=== PATIENT | male | born 1975 | race Hispanic/Latino ===

== ENCOUNTER 2020-06-10 19:17 | Inpatient (IN) | payer OTHER, SELFPAY ==
[2020-06-10] MEDS ORDERED: SODIUM CHLORIDE 0.9% 1000 ML 1,000 ML IV ONE (22:25)
[2020-06-10] MEDS ORDERED: ONDANSETRON 4 MG/2 ML INJ IV ONE (22:25)
--- NOTE | 2020-06-10 22:36 | Emergency Department Report ---
ED Abdominal Pain HPI - General Chief Complaint: Abdominal Pain Stated Complaint: HYPOTENSION Time Seen by Provider: 06/10/20 22:12 Source: EMS Mode of arrival: Wheelchair Limitations: No Limitations - History of Present Illness Initial Comments: Patient is 45 years old male with no significant past medical history however he does not follow-up with any primary care physician. Patient presented to the ER complaining of right scrotal swelling. Patient stated that his symptoms started 6 months ago with hernia and he was able to reduce it but for the last few days he is unable to reduce the hernia. Patient stated that he started having vomiting since yesterday and is unable to keep anything down. Patient also reported chills but no fever. No diarrhea. Patient denied any chest pain or shortness of breath. 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 MD Complaint: abdominal pain - Related Data Allergies Allergy/AdvReac Type Severity Reaction Status Date / Time No Known Allergies Allergy Unverified 06/11/20 00:01 ED Review of Systems ROS: Stated complaint: HYPOTENSION Other details as noted in HPI Comment: All other systems reviewed and negative Constitutional: denies: chills, fever Respiratory: denies: cough, shortness of breath, SOB with exertion Cardiovascular: denies: chest pain, palpitations Gastrointestinal: abdominal pain, nausea, vomiting. 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 Absent: tenderness, meningismus, lymphadenopathy, thyromegaly - Respiratory Respiratory exam: Present: normal lung sounds bilaterally - Cardiovascular Cardiovascular Exam: Present: regular rate, normal rhythm, normal heart sounds - GI/Abdominal GI/Abdominal exam: Present: soft, hernia (Large right inguinal hernia extending to the scrotum.). Absent: distended, tenderness, guarding, rebound, rigid - Back Exam Back exam: Present: normal inspection. Absent: CVA tenderness (R), CVA tenderness (L) - Neurological Exam Neurological exam: Present: alert, oriented X3, CN II-XII intact - Psychiatric Psychiatric exam: Present: normal mood ED Course Vital Signs 06/10/20 06/10/20 06/10/20 20:06 22:06 22:08 Temperature 98.8 F Pulse Rate 95 H Respiratory Rate Blood Pressure 118/97 118/97 118/97 Blood Pressure [Left] O2 Sat by Pulse 93 93 Oximetry 06/10/20 06/10/20 06/10/20 22:09 22:12 22:14 Temperature Pulse Rate Respiratory Rate Blood Pressure 118/97 118/97 118/97 Blood Pressure [Left] O2 Sat by Pulse 91 93 90 Oximetry 06/10/20 06/10/20 06/10/20 22:16 22:18 22:20 Temperature Pulse Rate Respiratory Rate Blood Pressure 118/97 118/97 118/97 Blood Pressure [Left] O2 Sat by Pulse 94 95 94 Oximetry 06/10/20 06/10/20 06/10/20 22:21 22:22 22:24 Temperature Pulse Rate 116 H 113 H 116 H Respiratory 16 21 21 Rate Blood Pressure 117/100 117/100 117/100 Blood Pressure [Left] O2 Sat by Pulse 95 95 93 Oximetry 06/10/20 06/10/20 06/10/20 22:26 22:28 22:30 Temperature Pulse Rate 114 H 117 H 118 H Respiratory 18 16 21 Rate Blood Pressure 117/100 117/100 117/100 Blood Pressure [Left] O2 Sat by Pulse 95 94 93 Oximetry 06/10/20 06/10/20 06/10/20 22:32 22:34 22:36 Temperature Pulse Rate 117 H 115 H 113 H Respiratory 12 22 20 Rate Blood Pressure 117/100 117/100 117/100 Blood Pressure [Left] O2 Sat by Pulse 89 91 95 Oximetry 06/10/20 06/10/20 06/10/20 22:38 22:40 22:42 Temperature Pulse Rate 110 H 112 H 112 H Respiratory 21 18 21 Rate Blood Pressure 117/100 117/100 117/100 Blood Pressure [Left] O2 Sat by Pulse 90 86 90 Oximetry 06/10/20 06/10/20 06/10/20 22:44 22:46 22:48 Temperature Pulse Rate 113 H 113 H 113 H Respiratory 20 22 18 Rate Blood Pressure 117/100 117/100 117/100 Blood Pressure [Left] O2 Sat by Pulse 91 90 92 Oximetry 06/10/20 06/10/20 06/10/20 22:50 22:52 22:54 Temperature Pulse Rate 114 H 112 H 115 H Respiratory 22 23 22 Rate Blood Pressure 117/100 117/100 117/100 Blood Pressure [Left] O2 Sat by Pulse 92 92 91 Oximetry 06/10/20 06/10/20 06/10/20 22:56 22:58 22:59 Temperature Pulse Rate 117 H 116 H 117 H Respiratory 13 10 L 11 L Rate Blood Pressure 117/100 117/100 117/100 Blood Pressure [Left] O2 Sat by Pulse 89 93 92 Oximetry 06/11/20 06/11/20 06/11/20 00:00 00:02 00:03 Temperature Pulse Rate Respiratory Rate Blood Pressure 117/100 56/32 57/30 Blood Pressure [Left] O2 Sat by Pulse 83 L 95 93 Oximetry 06/11/20 06/11/20 06/11/20 00:04 00:05 00:06 Temperature Pulse Rate Respiratory Rate Blood Pressure 62/30 73/40 69/42 Blood Pressure [Left] O2 Sat by Pulse 96 95 96 Oximetry 06/11/20 06/11/20 06/11/20 00:07 00:08 00:09 Temperature Pulse Rate Respiratory Rate Blood Pressure 70/34 73/41 68/43 Blood Pressure [Left] O2 Sat by Pulse 96 100 96 Oximetry 06/11/20 06/11/20 06/11/20 00:10 00:12 00:14 Temperature Pulse Rate Respiratory Rate Blood Pressure 73/42 73/44 73/44 Blood Pressure [Left] O2 Sat by Pulse 96 96 98 Oximetry 06/11/20 06/11/20 06/11/20 00:16 00:17 00:18 Temperature Pulse Rate Respiratory Rate Blood Pressure 73/44 84/47 84/47 Blood Pressure [Left] O2 Sat by Pulse 97 98 97 Oximetry 06/11/20 06/11/20 06/11/20 00:19 00:20 00:22 Temperature Pulse Rate 104 H 103 H 100 H Respiratory 18 11 L Rate Blood Pressure 77/41 81/43 83/43 Blood Pressure [Left] O2 Sat by Pulse Oximetry 06/11/20 06/11/20 06/11/20 00:23 00:24 00:25 Temperature Pulse Rate 101 H 101 H 102 H Respiratory 18 19 22 Rate Blood Pressure 83/43 91/45 Blood Pressure 83/43 [Left] O2 Sat by Pulse 97 Oximetry 06/11/20 06/11/20 06/11/20 00:26 00:28 00:30 Temperature Pulse Rate 103 H 100 H 101 H Respiratory 19 16 19 Rate Blood Pressure 91/45 91/45 94/46 Blood Pressure [Left] O2 Sat by Pulse 92 99 Oximetry 06/11/20 06/11/20 06/11/20 00:32 00:33 00:34 Temperature Pulse Rate 101 H 102 H 103 H Respiratory 21 21 14 Rate Blood Pressure 94/46 92/48 92/48 Blood Pressure [Left] O2 Sat by Pulse 94 94 94 Oximetry 06/11/20 06/11/20 06/11/20 00:35 00:36 00:38 Temperature Pulse Rate 101 H 101 H 103 H Respiratory 15 19 14 Rate Blood Pressure 88/41 88/41 88/41 Blood Pressure [Left] O2 Sat by Pulse 99 Oximetry 06/11/20 06/11/20 06/11/20 00:40 00:42 00:44 Temperature Pulse Rate 103 H 104 H 105 H Respiratory 18 15 15 Rate Blood Pressure 92/43 92/43 92/43 Blood Pressure [Left] O2 Sat by Pulse Oximetry 06/11/20 06/11/20 06/11/20 00:45 00:46 00:48 Temperature Pulse Rate 125 H 105 H 104 H Respiratory 14 13 18 Rate Blood Pressure 88/45 88/45 88/45 Blood Pressure [Left] O2 Sat by Pulse 99 Oximetry 06/11/20 06/11/20 06/11/20 00:50 00:52 00:53 Temperature Pulse Rate 105 H 103 H 105 H Respiratory 16 17 14 Rate Blood Pressure 88/46 84/47 81/45 Blood Pressure [Left] O2 Sat by Pulse 98 96 95 Oximetry 06/11/20 06/11/20 06/11/20 00:54 00:55 00:56 Temperature Pulse Rate 103 H 103 H 103 H Respiratory 19 16 19 Rate Blood Pressure 90/38 89/41 89/38 Blood Pressure [Left] O2 Sat by Pulse 89 94 Oximetry 06/11/20 06/11/20 06/11/20 00:57 00:58 01:00 Temperature Pulse Rate 104 H 104 H 103 H Respiratory 18 18 17 Rate Blood Pressure 82/39 81/42 81/42 Blood Pressure [Left] O2 Sat by Pulse 100 88 98 Oximetry 06/11/20 06/11/20 06/11/20 01:02 01:04 01:05 Temperature Pulse Rate 101 H 103 H 103 H Respiratory 20 17 16 Rate Blood Pressure 93/45 93/45 97/50 Blood Pressure [Left] O2 Sat by Pulse 92 90 Oximetry 06/11/20 06/11/20 06/11/20 01:06 01:08 01:10 Temperature Pulse Rate 102 H 102 H 103 H Respiratory 19 14 15 Rate Blood Pressure 97/50 97/50 101/49 Blood Pressure [Left] O2 Sat by Pulse 85 94 Oximetry 06/11/20 06/11/20 06/11/20 01:12 01:14 01:15 Temperature Pulse Rate 102 H 105 H 103 H Respiratory 16 15 21 Rate Blood Pressure 101/49 101/49 101/48 Blood Pressure [Left] O2 Sat by Pulse 100 94 Oximetry 06/11/20 06/11/20 06/11/20 01:16 01:18 01:20 Temperature Pulse Rate 102 H 103 H 103 H Respiratory 21 19 15 Rate Blood Pressure 101/48 101/48 97/54 Blood Pressure [Left] O2 Sat by Pulse 94 94 94 Oximetry 06/11/20 06/11/20 06/11/20 01:22 01:24 01:25 Temperature Pulse Rate 103 H 103 H 104 H Respiratory 16 16 16 Rate Blood Pressure 97/54 97/54 107/55 Blood Pressure [Left] O2 Sat by Pulse 94 95 91 Oximetry 06/11/20 06/11/20 06/11/20 01:26 01:28 01:30 Temperature Pulse Rate 105 H 105 H 105 H Respiratory 12 15 15 Rate Blood Pressure 107/55 107/55 102/54 Blood Pressure [Left] O2 Sat by Pulse 94 95 100 Oximetry 06/11/20 06/11/20 06/11/20 03:30 03:31 03:32 Temperature Pulse Rate 118 H 120 H 121 H Respiratory 16 13 13 Rate Blood Pressure 79/52 86/62 86/62 Blood Pressure [Left] O2 Sat by Pulse 83 L 90 90 Oximetry 06/11/20 06/11/20 06/11/20 03:34 03:35 03:36 Temperature Pulse Rate 121 H 121 H 121 H Respiratory 15 11 L 11 L Rate Blood Pressure 86/62 85/48 85/48 Blood Pressure [Left] O2 Sat by Pulse 87 90 100 Oximetry 06/11/20 06/11/20 06/11/20 03:38 03:40 03:42 Temperature Pulse Rate 119 H 121 H 120 H Respiratory 10 L 13 15 Rate Blood Pressure 85/48 85/48 43/22 Blood Pressure [Left] O2 Sat by Pulse 97 99 92 Oximetry 06/11/20 06/11/20 06/11/20 03:44 03:45 03:46 Temperature Pulse Rate 119 H 117 H 118 H Respiratory 16 12 12 Rate Blood Pressure 43/22 71/37 71/37 Blood Pressure [Left] O2 Sat by Pulse 91 96 96 Oximetry 06/11/20 06/11/20 06/11/20 03:48 03:50 03:52 Temperature Pulse Rate 118 H 119 H 116 H Respiratory 15 12 12 Rate Blood Pressure 71/37 66/34 66/34 Blood Pressure [Left] O2 Sat by Pulse 85 94 84 Oximetry 06/11/20 06/11/20 06/11/20 03:54 03:55 03:56 Temperature Pulse Rate 116 H 117 H 117 H Respiratory 17 14 19 Rate Blood Pressure 66/34 83/38 83/38 Blood Pressure [Left] O2 Sat by Pulse 89 93 89 Oximetry 06/11/20 06/11/20 06/11/20 03:58 04:00 04:02 Temperature Pulse Rate 118 H 117 H 118 H Respiratory 13 17 19 Rate Blood Pressure 83/38 83/45 83/45 Blood Pressure [Left] O2 Sat by Pulse 100 100 Oximetry 06/11/20 06/11/20 06/11/20 04:04 04:05 04:06 Temperature Pulse Rate 120 H 119 H 119 H Respiratory 10 L 19 16 Rate Blood Pressure 83/45 82/47 82/47 Blood Pressure [Left] O2 Sat by Pulse 99 100 100 Oximetry 06/11/20 06/11/20 06/11/20 04:08 04:10 04:12 Temperature Pulse Rate 118 H 118 H 117 H Respiratory 15 13 13 Rate Blood Pressure 82/47 81/49 81/49 Blood Pressure [Left] O2 Sat by Pulse 100 100 100 Oximetry 06/11/20 06/11/20 06/11/20 04:14 04:15 04:16 Temperature Pulse Rate 119 H 118 H 118 H Respiratory 14 12 14 Rate Blood Pressure 81/49 92/53 92/53 Blood Pressure [Left] O2 Sat by Pulse 100 100 100 Oximetry 06/11/20 06/11/20 06/11/20 04:18 04:20 04:22 Temperature Pulse Rate 116 H 116 H 117 H Respiratory 15 17 23 Rate Blood Pressure 92/53 88/49 88/49 Blood Pressure [Left] O2 Sat by Pulse 100 100 100 Oximetry 06/11/20 06/11/20 06/11/20 04:24 04:25 04:26 Temperature Pulse Rate 114 H 117 H 118 H Respiratory 17 16 19 Rate Blood Pressure 88/49 90/51 90/51 Blood Pressure [Left] O2 Sat by Pulse 100 99 100 Oximetry 06/11/20 06/11/20 06/11/20 04:28 04:30 04:32 Temperature Pulse Rate 116 H 115 H 115 H Respiratory 17 15 15 Rate Blood Pressure 90/51 85/54 85/54 Blood Pressure 90/51 [Left] O2 Sat by Pulse 99 100 100 Oximetry 06/11/20 06/11/20 06/11/20 04:34 04:35 04:36 Temperature Pulse Rate 115 H 116 H 114 H Respiratory 16 18 16 Rate Blood Pressure 85/54 88/50 88/50 Blood Pressure [Left] O2 Sat by Pulse 100 100 100 Oximetry 06/11/20 06/11/20 06/11/20 04:38 04:40 04:42 Temperature Pulse Rate 116 H 117 H 119 H Respiratory 16 18 18 Rate Blood Pressure 88/50 91/56 91/56 Blood Pressure [Left] O2 Sat by Pulse 100 100 100 Oximetry 06/11/20 06/11/20 06/11/20 04:44 04:45 04:46 Temperature Pulse Rate 112 H 112 H 114 H Respiratory 18 16 15 Rate Blood Pressure 91/56 91/60 91/60 Blood Pressure [Left] O2 Sat by Pulse 100 100 100 Oximetry 06/11/20 06/11/20 06/11/20 04:47 04:48 04:50 Temperature Pulse Rate 111 H 112 H 113 H Respiratory 18 14 17 Rate Blood Pressure 91/60 101/57 Blood Pressure 91/60 [Left] O2 Sat by Pulse 100 100 100 Oximetry 06/11/20 06/11/20 06/11/20 04:55 05:00 05:05 Temperature Pulse Rate 114 H 115 H 120 H Respiratory 17 17 19 Rate Blood Pressure 97/55 97/59 105/55 Blood Pressure [Left] O2 Sat by Pulse 100 100 99 Oximetry 06/11/20 06/11/20 06/11/20 05:10 05:15 05:20 Temperature Pulse Rate 116 H 116 H 117 H Respiratory 16 16 17 Rate Blood Pressure 97/59 99/59 98/60 Blood Pressure [Left] O2 Sat by Pulse 100 100 100 Oximetry 06/11/20 06/11/20 06/11/20 05:25 05:30 05:35 Temperature Pulse Rate 122 H 116 H 117 H Respiratory 24 13 16 Rate Blood Pressure 101/60 100/59 98/56 Blood Pressure [Left] O2 Sat by Pulse 100 99 100 Oximetry 06/11/20 06/11/20 06/11/20 05:40 05:45 05:50 Temperature Pulse Rate 117 H 116 H 114 H Respiratory 17 13 18 Rate Blood Pressure 92/61 105/57 106/52 Blood Pressure [Left] O2 Sat by Pulse 100 100 100 Oximetry 06/11/20 06/11/20 06/11/20 05:55 06:00 06:06 Temperature Pulse Rate 115 H 121 H 117 H Respiratory 15 22 16 Rate Blood Pressure 97/59 89/60 92/51 Blood Pressure [Left] O2 Sat by Pulse 100 100 100 Oximetry 06/11/20 06/11/20 06/11/20 06:10 06:14 06:15 Temperature Pulse Rate 116 H 116 H 116 H Respiratory 17 18 19 Rate Blood Pressure 92/51 102/56 Blood Pressure 102/57 [Left] O2 Sat by Pulse 100 100 100 Oximetry 06/11/20 06/11/20 06/11/20 06:20 06:25 06:30 Temperature Pulse Rate 119 H 115 H 116 H Respiratory 18 15 14 Rate Blood Pressure 98/57 97/58 100/56 Blood Pressure [Left] O2 Sat by Pulse 99 100 100 Oximetry 06/11/20 06/11/20 06/11/20 06:35 06:40 06:45 Temperature Pulse Rate 116 H 116 H 116 H Respiratory 18 15 18 Rate Blood Pressure 99/56 101/58 103/61 Blood Pressure [Left] O2 Sat by Pulse 100 100 100 Oximetry 06/11/20 06/11/20 06/11/20 06:50 06:55 07:00 Temperature Pulse Rate 116 H 122 H 116 H Respiratory 18 22 17 Rate Blood Pressure 96/58 97/55 102/55 Blood Pressure [Left] O2 Sat by Pulse 100 100 100 Oximetry 06/11/20 06/11/20 06/11/20 07:05 07:10 07:15 Temperature Pulse Rate 116 H 115 H 117 H Respiratory 19 21 15 Rate Blood Pressure 102/64 95/59 93/60 Blood Pressure [Left] O2 Sat by Pulse 100 100 100 Oximetry 06/11/20 06/11/20 06/11/20 07:20 07:25 07:30 Temperature Pulse Rate 120 H 120 H 119 H Respiratory 22 17 20 Rate Blood Pressure 96/54 77/50 75/45 Blood Pressure [Left] O2 Sat by Pulse 100 99 99 Oximetry 06/11/20 06/11/20 06/11/20 07:35 07:40 07:45 Temperature Pulse Rate 121 H 115 H 115 H Respiratory 23 19 17 Rate Blood Pressure 83/35 86/48 95/56 Blood Pressure [Left] O2 Sat by Pulse 100 100 100 Oximetry 06/11/20 06/11/20 06/11/20 07:50 07:55 08:00 Temperature Pulse Rate 117 H 114 H 115 H Respiratory 18 17 17 Rate Blood Pressure 94/52 100/54 99/57 Blood Pressure [Left] O2 Sat by Pulse 100 100 100 Oximetry 06/11/20 06/11/20 06/11/20 08:05 08:10 08:15 Temperature Pulse Rate 114 H 111 H 110 H Respiratory 17 17 18 Rate Blood Pressure 96/53 99/54 102/55 Blood Pressure [Left] O2 Sat by Pulse 100 100 100 Oximetry 06/11/20 06/11/20 06/11/20 08:20 08:25 08:30 Temperature Pulse Rate 110 H 109 H 109 H Respiratory 19 18 20 Rate Blood Pressure 106/57 97/59 101/58 Blood Pressure [Left] O2 Sat by Pulse 100 100 100 Oximetry 06/11/20 06/11/20 06/11/20 08:35 08:40 08:45 Temperature Pulse Rate 115 H 115 H 112 H Respiratory 21 20 17 Rate Blood Pressure 94/57 91/48 71/37 Blood Pressure [Left] O2 Sat by Pulse 100 100 100 Oximetry 06/11/20 06/11/20 06/11/20 08:50 08:55 09:00 Temperature Pulse Rate 114 H 115 H 114 H Respiratory 18 21 19 Rate Blood Pressure 73/38 65/39 65/39 Blood Pressure [Left] O2 Sat by Pulse 98 97 97 Oximetry 06/11/20 06/11/20 06/11/20 09:05 09:10 09:15 Temperature Pulse Rate 106 H 110 H 112 H Respiratory 16 17 19 Rate Blood Pressure 89/53 101/62 104/58 Blood Pressure [Left] O2 Sat by Pulse 98 98 98 Oximetry 06/11/20 06/11/20 06/11/20 09:20 09:25 09:30 Temperature Pulse Rate 113 H 114 H 112 H Respiratory 21 23 21 Rate Blood Pressure 101/60 101/57 99/60 Blood Pressure [Left] O2 Sat by Pulse 97 99 99 Oximetry 06/11/20 06/11/20 06/11/20 09:35 09:40 09:45 Temperature Pulse Rate 114 H 113 H 113 H Respiratory 15 21 22 Rate Blood Pressure 96/57 102/60 103/58 Blood Pressure [Left] O2 Sat by Pulse 100 98 99 Oximetry 06/11/20 06/11/20 06/11/20 09:50 09:55 10:00 Temperature Pulse Rate 116 H 113 H 115 H Respiratory 21 22 21 Rate Blood Pressure 103/61 102/59 99/51 Blood Pressure [Left] O2 Sat by Pulse 98 100 98 Oximetry 06/11/20 06/11/20 06/11/20 10:05 10:10 10:15 Temperature Pulse Rate 113 H 110 H 111 H Respiratory 18 20 15 Rate Blood Pressure 103/55 102/64 101/64 Blood Pressure [Left] O2 Sat by Pulse 100 99 99 Oximetry 06/11/20 06/11/20 06/11/20 10:20 10:25 10:30 Temperature Pulse Rate 119 H 114 H 116 H Respiratory 22 20 18 Rate Blood Pressure 96/57 107/62 100/60 Blood Pressure [Left] O2 Sat by Pulse 98 97 97 Oximetry 06/11/20 06/11/20 06/11/20 10:35 10:40 10:45 Temperature Pulse Rate 114 H 115 H 116 H Respiratory 22 22 20 Rate Blood Pressure 106/60 105/59 104/61 Blood Pressure [Left] O2 Sat by Pulse 99 99 99 Oximetry 06/11/20 06/11/20 06/11/20 10:50 10:55 11:00 Temperature Pulse Rate 116 H 115 H 117 H Respiratory 21 19 21 Rate Blood Pressure 106/59 95/59 99/57 Blood Pressure [Left] O2 Sat by Pulse 100 100 100 Oximetry 06/11/20 06/11/20 06/11/20 11:05 11:10 11:15 Temperature Pulse Rate 116 H 118 H 116 H Respiratory 22 17 21 Rate Blood Pressure 102/62 97/59 102/54 Blood Pressure [Left] O2 Sat by Pulse 98 100 99 Oximetry 06/11/20 06/11/20 06/11/20 11:20 11:25 11:30 Temperature Pulse Rate 120 H 117 H 108 H Respiratory 20 20 22 Rate Blood Pressure 91/53 100/61 104/61 Blood Pressure [Left] O2 Sat by Pulse 100 100 100 Oximetry 06/11/20 06/11/20 06/11/20 11:35 11:40 11:45 Temperature Pulse Rate 117 H 117 H 116 H Respiratory 20 20 21 Rate Blood Pressure 98/61 96/57 100/61 Blood Pressure [Left] O2 Sat by Pulse 99 100 100 Oximetry 06/11/20 06/11/20 06/11/20 11:50 11:55 12:00 Temperature Pulse Rate 116 H 118 H 116 H Respiratory 19 23 22 Rate Blood Pressure 101/57 95/60 105/58 Blood Pressure [Left] O2 Sat by Pulse 99 100 100 Oximetry 06/11/20 06/11/20 06/11/20 12:05 12:10 12:15 Temperature Pulse Rate 117 H 117 H 117 H Respiratory 20 16 24 Rate Blood Pressure 102/58 109/59 105/58 Blood Pressure [Left] O2 Sat by Pulse 100 100 99 Oximetry 06/11/20 06/11/20 06/11/20 12:20 12:45 12:50 Temperature Pulse Rate 118 H 121 H 128 H Respiratory 23 29 H 25 H Rate Blood Pressure 101/58 91/49 89/45 Blood Pressure [Left] O2 Sat by Pulse 100 91 93 Oximetry 08/06/11/20 06/11/20 12:55 13:00 13:05 Temperature Pulse Rate 123 H 123 H 119 H Respiratory 21 28 H 26 H Rate Blood Pressure 72/40 93/56 96/55 Blood Pressure [Left] O2 Sat by Pulse 95 94 93 Oximetry 06/11/20 06/11/20 06/11/20 13:10 13:15 13:20 Temperature Pulse Rate 125 H 115 H 155 H Respiratory 23 19 22 Rate Blood Pressure 101/58 95/60 85/61 Blood Pressure [Left] O2 Sat by Pulse 94 95 95 Oximetry 06/11/20 06/11/20 06/11/20 13:25 13:30 13:35 Temperature Pulse Rate 121 H 178 H 117 H Respiratory 26 H 24 19 Rate Blood Pressure 85/61 89/56 86/59 Blood Pressure [Left] O2 Sat by Pulse 95 97 97 Oximetry 06/11/20 06/11/20 06/11/20 13:40 13:45 13:50 Temperature Pulse Rate 120 H 120 H 119 H Respiratory 25 H 26 H 22 Rate Blood Pressure 86/59 93/60 88/61 Blood Pressure [Left] O2 Sat by Pulse 98 97 98 Oximetry 06/11/20 06/11/20 06/11/20 13:55 14:00 14:05 Temperature Pulse Rate 120 H 120 H 121 H Respiratory 23 20 24 Rate Blood Pressure 94/61 95/66 98/62 Blood Pressure [Left] O2 Sat by Pulse 97 98 98 Oximetry 06/11/20 06/11/20 06/11/20 14:10 14:15 14:20 Temperature Pulse Rate 121 H 123 H 122 H Respiratory 20 22 20 Rate Blood Pressure 91/64 86/62 89/59 Blood Pressure [Left] O2 Sat by Pulse 98 98 98 Oximetry 06/11/20 06/11/20 06/11/20 14:25 14:30 14:35 Temperature Pulse Rate 120 H 123 H 122 H Respiratory 18 24 20 Rate Blood Pressure 99/63 100/63 106/63 Blood Pressure [Left] O2 Sat by Pulse 95 97 97 Oximetry 06/11/20 06/11/20 06/11/20 14:40 14:45 14:50 Temperature Pulse Rate 122 H 122 H 139 H Respiratory 22 26 H 20 Rate Blood Pressure 104/60 109/62 106/66 Blood Pressure [Left] O2 Sat by Pulse 98 97 97 Oximetry 06/11/20 06/11/20 06/11/20 14:55 15:00 15:05 Temperature Pulse Rate 123 H 123 H 123 H Respiratory 21 23 22 Rate Blood Pressure 112/64 110/62 108/62 Blood Pressure [Left] O2 Sat by Pulse 98 98 96 Oximetry 06/11/20 06/11/20 06/11/20 15:10 15:15 15:20 Temperature Pulse Rate 124 H 123 H 123 H Respiratory 24 24 26 H Rate Blood Pressure 110/62 108/60 108/66 Blood Pressure [Left] O2 Sat by Pulse 97 98 97 Oximetry 06/11/20 06/11/20 06/11/20 15:25 15:30 15:35 Temperature Pulse Rate 123 H 125 H 124 H Respiratory 21 21 24 Rate Blood Pressure 106/63 109/63 112/61 Blood Pressure [Left] O2 Sat by Pulse 97 98 98 Oximetry 06/11/20 06/11/20 06/11/20 15:40 15:45 15:50 Temperature Pulse Rate 124 H 123 H 123 H Respiratory 24 17 20 Rate Blood Pressure 111/59 102/59 110/64 Blood Pressure [Left] O2 Sat by Pulse 98 98 98 Oximetry 06/11/20 06/11/20 06/11/20 15:55 16:00 16:05 Temperature Pulse Rate 123 H 120 H 124 H Respiratory 17 15 19 Rate Blood Pressure 108/66 107/65 100/58 Blood Pressure [Left] O2 Sat by Pulse 98 Oximetry 06/11/20 06/11/20 06/11/20 16:10 16:15 16:20 Temperature Pulse Rate 122 H 119 H 123 H Respiratory 21 15 25 H Rate Blood Pressure 104/63 112/63 114/64 Blood Pressure [Left] O2 Sat by Pulse Oximetry 06/11/20 06/11/20 06/11/20 16:25 16:30 16:35 Temperature Pulse Rate 124 H 126 H 126 H Respiratory 22 17 22 Rate Blood Pressure 107/65 106/61 112/61 Blood Pressure [Left] O2 Sat by Pulse Oximetry 06/11/20 06/11/20 06/11/20 16:40 16:45 16:50 Temperature Pulse Rate 124 H 125 H 125 H Respiratory 16 28 H 25 H Rate Blood Pressure 108/59 111/64 107/59 Blood Pressure [Left] O2 Sat by Pulse Oximetry 06/11/20 06/11/20 06/11/20 16:55 17:00 18:20 Temperature Pulse Rate 124 H 121 H 121 H Respiratory 23 22 22 Rate Blood Pressure 115/60 113/60 118/69 Blood Pressure [Left] O2 Sat by Pulse Oximetry 06/11/20 06/11/20 06/11/20 18:30 18:40 18:50 Temperature Pulse Rate 128 H 116 H 124 H Respiratory 25 H 22 21 Rate Blood Pressure 114/65 114/62 92/65 Blood Pressure [Left] O2 Sat by Pulse Oximetry 06/11/20 06/11/20 06/11/20 19:00 19:10 19:20 Temperature Pulse Rate 127 H 130 H 128 H Respiratory 22 14 16 Rate Blood Pressure 98/62 102/56 103/51 Blood Pressure [Left] O2 Sat by Pulse Oximetry 06/11/20 06/11/20 06/11/20 19:30 19:40 19:50 Temperature Pulse Rate 128 H 117 H 118 H Respiratory 17 16 20 Rate Blood Pressure 94/43 97/59 105/67 Blood Pressure [Left] O2 Sat by Pulse 95 Oximetry 06/11/20 06/11/20 06/11/20 20:00 20:10 20:20 Temperature Pulse Rate 116 H 120 H 123 H Respiratory 16 22 19 Rate Blood Pressure 115/72 119/77 111/64 Blood Pressure [Left] O2 Sat by Pulse 95 87 97 Oximetry 06/11/20 06/11/20 06/11/20 20:30 20:40 21:00 Temperature 98.7 F Pulse Rate 121 H 120 H Respiratory 24 19 Rate Blood Pressure 111/64 102/64 Blood Pressure [Left] O2 Sat by Pulse 95 Oximetry - Reevaluation(s) Reevaluation #1: 06/11/20 01:31 Patient blood pressure started to improve after 4 L of normal saline. Patient current blood pressure is 107/58 with a map of 65. Patient stated that he is feeling much better. I instructed the nurse to put a José catheter for urine output monitor and to rule out obstruction. ED Medical Decision Making - Lab Data Result diagrams: 06/12/20 04:26 06/11/20 10:48 - Radiology Data Radiology results: report reviewed - Medical Decision Making Patient is 45 years old male with no significant past medical history however he does not follow-up with any primary care physician. Patient presented to the ER complaining of right scrotal swelling. Patient stated that his symptoms started 6 months ago with hernia and he was able to reduce it but for the last few days he is unable to reduce the hernia. Patient stated that he started having vomiting since yesterday and is unable to keep anything down. Patient also reported chills but no fever. No diarrhea. Patient denied any chest pain or shortness of breath. 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 Immediately started on normal saline. Patient blood pressure started dropping. Sepsis protocol immediately initiated. Patient started on Zosyn. Labs reviewed and showed a white blood cells of 21,000. Patient creatinine is 7.7 with a BUN of 58. I discussed the patient with ,, safety relief valve technician on-call he advised to continue fluids and will see the patient. CT abdomen and pelvis showed a large incarcerated right inguinal hernia. I discussed the patient with Dr. Pleitez, general surgeon on-call he advised to continue resuscitation the patient and he will plan surgery according. I discussed the patient with , he agreed to admit the patient to medical service for further manag ement. Critical Care Time: Yes Critical care time in (mins) excluding proc time.: 45 Critical care attestation.: If time is entered above; I have spent that time in minutes in the direct care of this critically ill patient, excluding procedure time. ED Disposition Clinical Impression: Sepsis, Acute renal failure, Incarcerated right inguinal hernia Disposition: OP ADMIT IP TO THIS HOSP Is pt being admited?: Yes Condition: Stable
[2020-06-10] MEDS: MORPHINE 4 MG/1 ML INJ IV ONE ×2 (22:57→23:47)
[2020-06-10 23:00] LABS: Hematocrit 44.5 % (35.5-45.6); Mean Corpuscular HGB Conc 34 % (32-34); Mean Corpuscular Volume 91 fl (84-94); Platelet Count 505 K/mm3 (140-440); Red Blood Count 4.91 M/mm3 (3.65-5.03); Red Cell Distribution Width 13.6 % (13.2-15.2)
[2020-06-10 23:08] LABS: INR 0.97 (0.87-1.13)
[2020-06-10 23:15] LABS: Alanine Aminotransferase 31 units/L (7-56); Albumin 4.9 g/dL (3.9-5); Blood Urea Nitrogen 58 mg/dL (9-20); Calcium 10.2 mg/dL (8.4-10.2); Hemolysis Index 53
[2020-06-10] MEDS ORDERED: PIPERACILLIN/TAZOBACTAM 3.375 3.375 GM/50 ML BAG IV ONE (23:17)
[2020-06-10 23:19] LABS: BUN/Creatinine Ratio 8; Bilirubin,Direct < 0.2 mg/dL (0-0.2)
[2020-06-11] MEDS ORDERED: SODIUM CHLORIDE 0.9% 1000 ML IV SOLN IV ONE (00:08)
--- NOTE | 2020-06-11 00:15 | Cat Scan Report ---
CT abdomen pelvis wo con INDICATION / CLINICAL INFORMATION: Pt complains of severe LOWER abdominal pain. TECHNIQUE: Axial CT imaging of abdomen and pelvis was obtained without contrast. Coronal and sagittal reformatte d imaging obtained and reviewed. All CT scans at this location are performed using CT dose reduction for ALARA by means of automated exposure control. COMPARISON: None available. FINDINGS: CT abdomen without contrast demonstrates grossly normal appearance of the liver, spleen, pancreas, ki dneys, and gallbladder. There is a fat-containing right adrenal gland mass measuring 2.4 cm consisten t with adenoma. 1.3 cm left adrenal gland mass also noted, most likely adenoma as well. 1.8 cm left r enal cyst. There is a moderate size hiatal hernia present. CT pelvis without contrast demonstrates a large right inguinal hernia. There multiple bowel loops wit hin the hernia including the distal small bowel and the cecum. The appendix is contained within the h ernia as well without evidence of appendicitis. A few of the small bowel loops within the hernia appe ar mildly inflamed. The cecum is distended with fluid and the small bowel proximal to the hernia is m ildly dilated with fluid. There is prominent gastric distention with fluid as well. The remainder the pelvis is unremarkable. No pelvic mass or free fluid identified. Mild diverticulosi s of the sigmoid colon is incidentally noted. Visualized lung bases are clear. Review of osseous structures does not demonstrate any acute significant skeletal abnormality. IMPRESSION: 1. Large right inguinal hernia containing cecum and several loops of distal small bowel. The small arcenio wel proximal to the hernia is mildly dilated and fluid-filled. Additionally the cecum, contained with in the hernia is moderately distended with fluid. Appearance is consistent with a mild small bowel ob struction as well as concern for cecal obstruction-incarceration. 2. Incidental finding of bilateral small adrenal gland adenomas. 3. Moderate sized hiatal hernia. Signer Name: Dee Dee Vaca MD Signed: 06/11/2020 12:10 AM Workstation Name: [id number]
--- NOTE | 2020-06-11 01:25 | Event Note ---
Date: 06/11/[address] Kumar. Reviewed images. Hernia opening is fairly large with no significant dilatation of proximal bowel. Unlikely that patient has strangulated bowel to cause the current condition. Pt needs to be resuscitated before surgery.
--- NOTE | 2020-06-11 01:36 | XRay Report ---
CHEST 1 VIEW INDICATION / CLINICAL INFORMATION: sepsis. COMPARISON: None available. FINDINGS: SUPPORT DEVICES: None. HEART / MEDIASTINUM: No significant abnormality. LUNGS / PLEURA: No significant pulmonary or pleural abnormality. No pneumothorax. ADDITIONAL FINDINGS: No significant additional findings. IMPRESSION: 1. No acute findings. Signer Name: Dee Dee Vaca MD Signed: 06/11/2020 1:32 AM Workstation Name: [id number]
[2020-06-11] MEDS ORDERED: SODIUM CHLORIDE 0.9% 1000 ML 1,000 ML IV ONE ×3 (01:38→07:38)
[2020-06-11] MEDS ORDERED: MORPHINE 2 MG/1 ML INJ IV PRN (02:08)
[2020-06-11] MEDS ORDERED: ACETAMINOPHEN 325 MG TAB PO PRN (02:08)
[2020-06-11] MEDS ORDERED: ONDANSETRON 4 MG/2 ML INJ IV PRN (02:08)
--- NOTE | 2020-06-11 02:20 | History and Physical Report ---
History of Present Illness Date of examination: 06/11/20 Date of admission: 06/11/2020 Chief complaint: Abdominal pain History of present illness: Patient is a 45-year-old male with no significant past medical history presenting to the emergency room today complaining of right inguinal swelling. Patient is indicates that his symptoms started about 6 months ago when he developed a hernia and was able to reduce it over the past few days he has been unable to reduce the hernia. He has been having some nausea and vomiting for the past 2 days. He denies any fever but has some chills, he denies any diarrhea, no chest pain or shortness of breath, no hematuria or dysuria. 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 Denies any sick contacts and no recent travel. He denies contact with anyone COVID-19. Work-up in the emergency room today including CT scan reveals incarcerated right inguinal hernia. General surgeon Dr. Pleitez has been consulted and the ER physician. Patient is placed on IV fluid and empiric IV antibiotics. 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) Social history: smoking (Current daily smoker), alcohol abuse Medications and Allergies Allergies Allergy/AdvReac Type Severity Reaction Status Date / Time No Known Allergies Allergy Unverified 06/11/20 00:01 Active Meds: Active Medications Sodium Chloride (Nacl 0.9% 1000 Ml) 1,000 mls @ 999 mls/hr IV BOLUS ONE Stop: 06/11/20 02:38 Sodium Chloride (Nacl 0.9% 1000 Ml) 1,000 mls @ 999 mls/hr IV BOLUS ONE Stop: 06/11/20 02:40 Review of Systems Constitutional: chills, no fever Ears, nose, mouth and throat: no nasal congestion, no sore throat Cardiovascular: no chest pain, no palpitations Respiratory: no cough, no shortness of breath Gastrointestinal: abdominal pain, nausea, vomiting, no diarrhea Genitourinary Male: no dysuria, no hematuria, no nocturia Musculoskeletal: no neck pain, no low back pain Integumentary: no rash, no pruritis Neurological: no headaches, no confusion Psychiatric: no anxiety, no depression Exam - Constitutional Vitals: Temp Pulse Resp BP Pulse Ox 98.8 F 105 H 15 102/54 100 06/10/20 20:06 06/11/20 01:30 06/11/20 01:30 06/11/20 01:30 06/11/20 01:30 General appearance: Present: no acute distress, well-nourished - EENT Eyes: Present: PERRL, EOM intact, scleral icterus ENT: hearing intact, clear oral mucosa, dentition normal - Neck Neck: Present: supple, normal ROM - Respiratory Respiratory effort: normal Respiratory: bilateral: CTA - Cardiovascular Rhythm: regular Heart Sounds: Present: S1 & S2. Absent: gallop, systolic murmur, diastolic murmur, rub - Extremities Extremities: no ischemia, pulses intact, pulses symmetrical, No edema, Full ROM Peripheral Pulses: within normal limits - Abdominal General gastrointestinal: Present: soft, non-tender, non-distended, normal bowel sounds, hernia (Huge non reducible right inguinal hernia, mildly tender) - Integumentary Integumentary: Present: clear, warm, dry - Musculoskeletal Musculoskeletal: strength equal bilaterally - Psychiatric Psychiatric: appropriate mood/affect, intact judgment & insight, memory intact, cooperative - Neurologic Neurologic: CNII-XII intact, no focal deficits, moves all extremities Results - Labs CBC & Chem 7: 06/10/20 22:39 06/10/20 22:39 Labs: Abnormal lab results 06/10/20 06/10/20 06/11/20 Range/Units 22:39 22:39 00:45 WBC 21.0 H (4.5-11.0) K/mm3 Plt Count 505 H (140-440) K/mm3 Chloride 80.1 L (98-107) mmol/L BUN 58 H (9-20) mg/dL Creatinine 7.7 H (0.8-1.3) mg/dL Glucose 147 H (75-100) mg/dL Lactic Acid 4.90 H* (0.7-2.0) mmol/L AST 50 H (5-40) units/L Total Protein 8.8 H (6.3-8.2) g/dL Assessment and Plan - Patient Problems (1) Incarcerated right inguinal hernia Current Visit: Yes Status: Acute Plan to address problem: Patient placed on analgesic medication. General surgeon Dr. Pleitez has been consulted. (2) Acute renal failure Current Visit: Yes Status: Acute Plan to address problem: We will continue IV fluid and monitor BUN and creatinine. Nephrology has also been consulted for further evaluation and recommendation. (3) Sepsis Current Visit: Yes Status: Acute Plan to address problem: Patient placed on IV fluid and empiric IV antibiotics. (4) DVT prophylaxis Current Visit: Yes Status: Acute Plan to address problem: Patient placed on sequential compression device. (5) Full code status Current Visit: Yes Status: Acute
[2020-06-11 02:27] LABS: Band Neutrophils # (Manual) 0.4 K/mm3; Basophils % (Manual) 0 % (0.0-1.8); Eosinophils % (Manual) 0 % (0.0-4.3); Target Cells Rare; Total Cells Counted 100
[2020-06-11 02:28] LABS: Platelet Estimate Consistent w Auto
[2020-06-11] MEDS ORDERED: SODIUM CHLORIDE 0.9% 250ML 250 ML ONE (04:08)
[2020-06-11] MEDS ORDERED: SODIUM CHLORIDE 0.9% 250ML 250 ML IV ONE (04:14)
[2020-06-11] MEDS ORDERED: SODIUM CHLORIDE 0.9% 1000 ML 1,000 ML ONE ×3 (04:24→12:31)
[2020-06-11] MEDS: NORepinephrine/NS 4 MG-250 ML 4 MG/250 ML BAG IV SCH ×2 (04:37→20:48)
[2020-06-11] MEDS ORDERED: PIPERACIL/TAZOBACTA 4.5/NS 100 4.5 GM/100 ML VIAL IV SCH (06:00)
[2020-06-11] MEDS ORDERED: PIPERACIL-TAZO 2.25 GM/50 ML 2.25 GM/50 ML BAG IV ONE ×2 (06:10→16:52)
[2020-06-11] MEDS: PIPERACIL-TAZO 2.25 GM/50 ML 2.25 GM/50 ML BAG IV SCH ×2 (06:12→16:53)
--- NOTE | 2020-06-11 07:01 | Consultation ---
History of Present Illness Consult date: 06/11/20 Reason for consult: hernia Requesting physician: MEGHANA MAGANA Chief complaint: nausea, vomiting, diarrhea - History of present illness History of present illness: 45yo M presents with 1 week history of nausea, vomiting, diarrhea and a feeling that "I was going to ". EMS reports that patient was hypotensive on arrival. Patient became hypotensive again in the emergency department. Work-up revealed elevated white count, acute renal failure, inguinoscrotal hernia that possibly may be incarcerated. General surgery was consulted. Patient reports that hernias been there for at least 6 months. He has been able to push it back up until a few days ago. He was concerned and nausea, vomiting, diarrhea were related to his hernia therefore he came to the emergency de partment. Also he had the feeling that he was going to . Denies ever having any abdominal pain or scrotal pain. 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) Social history: smoking (Current daily smoker), alcohol abuse Medications and Allergies Allergies Allergy/AdvReac Type Severity Reaction Status Date / Time No Known Allergies Allergy Unverified 06/11/20 00:01 Active Meds: Active Medications Acetaminophen (Tylenol) 650 mg PO Q4H PRN PRN Reason: Pain MILD(1-3)/Fever >100.5/HERRERA Sodium Chloride (Nacl 0.9% 1000 Ml) 1,000 mls @ 125 mls/hr IV DIRECT ALICE Piperacillin Sod/Tazobactam Sod (Zosyn/Ns 2.25 Gm/50ml) 2.25 gm in 50 mls @ 100 mls/hr IV Q8HR ALICE Last Admin: 06/11/20 06:12 Dose: 100 mls/hr Documented by: Norepinephrine (Levophed Drip 4 Mg/Ns 250 Ml) 4 mg in 250 mls @ 7.5 mls/hr IV TITR ALICE; Protocol Last Titration: 06/11/20 06:06 Dose: 11 mcg/min, 41.25 mls/hr Documented by: Morphine Sulfate (Morphine) 2 mg IV Q4H PRN PRN Reason: Pain, Moderate (4-6) Ondansetron HCl (Zofran) 4 mg IV Q8H PRN PRN Reason: Nausea And Vomiting Sodium Chloride (Sodium Chloride Flush Syringe 10 Ml) 10 ml IV BID ALICE Sodium Chloride (Sodium Chloride Flush Syringe 10 Ml) 10 ml IV PRN PRN PRN Reason: LINE FLUSH Review of Systems - Constitutional weakness, lethargy, no fever, no chills, no chronic pain - Cardiovascular no chest pain, no shortness of breath - Respiratory no cough - Gastrointestinal nausea, vomiting, diarrhea, dyspepsia/bloating, no abdominal pain, no hematemesis, no coffee ground emesis, no BRBPR, no melena, no hematochezia - Muskuloskeletal no low back pain - Integumentary no rash, no sores, no wounds Exam Vital Signs Temp Pulse BP 98.8 F 95 H 118/97 06/10/20 20:06 06/10/20 20:06 06/10/20 20:06 - General physical appearance Positive: well developed, well nourished, no distress, no pain, other (Appears lethargic. Able to answer questions.) - Eyes Positive: normal occular movement. Negative: icteric - Respiratory Positive: normal expansion, normal respiratory effort - Cardiovascular Rhythm: regular (tachycardic) - Abdomen Abdomen: Present: soft, bowel sounds hypoactive, other (protuberant abdomen). Absent: tender, masses, guarding, rigid, surgical scars Hernia: reducible, scrotal (Skin is thickened but there is no erythema. Able to reduce hernia without causing any pain or tenderness.) - Genitourinary Male Genitourinary: right inguinal hernia - Integumentary no rash, no growths, no abnormal pigmentation - Psychiatric Psychiatric: intact judgment & insight, cooperative Results - Labs 06/10/20 22:39 06/10/20 22:39 Abnormal lab results 06/10/20 06/10/20 06/11/20 Range/Units 22:39 22:39 00:45 WBC 21.0 H (4.5-11.0) K/mm3 Plt Count 505 H (140-440) K/mm3 Seg Neuts % (Manual) 84.0 H (40.0-70.0) % Lymphocytes % (Manual) 6.0 L (13.4-35.0) % Monocytes % (Manual) 8.0 H (0.0-7.3) % Seg Neutrophils # Man 17.6 H (1.8-7.7) K/mm3 Monocytes # (Manual) 1.7 H (0.0-0.8) K/mm3 Chloride 80.1 L (98-107) mmol/L BUN 58 H (9-20) mg/dL Creatinine 7.7 H (0.8-1.3) mg/dL Glucose 147 H (75-100) mg/dL Lactic Acid 4.90 H* (0.7-2.0) mmol/L AST 50 H (5-40) units/L Total Protein 8.8 H (6.3-8.2) g/dL Diabetes panel 06/10/20 Range/Units 22:39 Sodium 137 (137-145) mmol/L Potassium 4.4 (3.6-5.0) mmol/L Chloride 80.1 L (98-107) mmol/L Carbon Dioxide 25 (22-30) mmol/L BUN 58 H (9-20) mg/dL Creatinine 7.7 H (0.8-1.3) mg/dL Glucose 147 H (75-100) mg/dL Calcium 10.2 (8.4-10.2) mg/dL AST 50 H (5-40) units/L ALT 31 (7-56) units/L Alkaline Phosphatase 115 (35-129) units/L Total Protein 8.8 H (6.3-8.2) g/dL Albumin 4.9 (3.9-5) g/dL Calcium panel 06/10/20 Range/Units 22:39 Calcium 10.2 (8.4-10.2) mg/dL Albumin 4.9 (3.9-5) g/dL Pituitary panel 06/10/20 Range/Units 22:39 Sodium 137 (137-145) mmol/L Potassium 4.4 (3.6-5.0) mmol/L Chloride 80.1 L (98-107) mmol/L Carbon Dioxide 25 (22-30) mmol/L BUN 58 H (9-20) mg/dL Creatinine 7.7 H (0.8-1.3) mg/dL Glucose 147 H (75-100) mg/dL Calcium 10.2 (8.4-10.2) mg/dL Adrenal panel 06/10/20 Range/Units 22:39 Sodium 137 (137-145) mmol/L Potassium 4.4 (3.6-5.0) mmol/L Chloride 80.1 L (98-107) mmol/L Carbon Dioxide 25 (22-30) mmol/L BUN 58 H (9-20) mg/dL Creatinine 7.7 H (0.8-1.3) mg/dL Glucose 147 H (75-100) mg/dL Calcium 10.2 (8.4-10.2) mg/dL Total Bilirubin 0.50 (0.1-1.2) mg/dL AST 50 H (5-40) units/L ALT 31 (7-56) units/L Alkaline Phosphatase 115 (35-129) units/L Total Protein 8.8 H (6.3-8.2) g/dL Albumin 4.9 (3.9-5) g/dL - Imaging CT scan - abdomen: report reviewed, image reviewed CT scan - pelvis: report reviewed, image reviewed Assessment and Plan - Patient Problems (1) Right inguinal hernia Current Visit: Yes Status: Acute Plan to address problem: Pt with chronic right inguinal hernia. Overall, patient did not present with any abdominal pain or groin pain. He was concerned that his nausea, vomiting, diarrhea, overall weak feeling were related to the hernia and that is why he presented. He had absolutely no tenderness during the reduction of the hernia. There were no skin changes. It seems unlikely that his overall septic picture is related to some complication of the right inguinal hernia. I was able to reduce the hernia with steady pressure and he tolerated it very well. I would expect him to be exquisitely tender if the bowel were ischemic or necrotic. He seems to be responding to the resuscitation as his lactate has normalized. I would continue with aggressive resuscitation. Once he is stabilized, we will plan for operative repair of his inguinal hernia. I will start him on a liquid diet later today or tomorrow if his nausea and vomiting have resolved now that the hernia was reduced. Please note, the hernia opening is quite large. After I reduced the hernia it easily comes out again. This is to be expected and not a concern. As long as it is able to be reduced, we should be fine to wait on surgery until he is more stable. Will follow along. Please call with questions. time=40min
[2020-06-11 08:39] LABS: Amorphous Crystals,Urine 1+; Bacteria,Urine 1+ /HPF (Negative); Bilirubin,Urine NEG (Negative); Blood,Urine LG (Negative); Color,Urine Yellow (Yellow); Mucus,Urine 1+ /HPF; Sperm,Urine FEW /HPF (NP); Urobilinogen,Urine < 2.0 mg/dL (<2.0)
[2020-06-11 08:45] LABS: Protein,Urine >500 mg/dL (Negative)
--- NOTE | 2020-06-11 10:41 | Consultation ---
History of Present Illness - Reason for Consult acute renal failure - History of Present Illness Mr. Atkinson is a 45 years old male with no significant past medical history however he does not follow-up with any primary care physician who presented to the ED complaining of right scrotal swelling. 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 He reports intractable nausea/vomiting w/ poor po intake. Hernia was reducible until recently. Since admission, vitals were notable for SBP as low as 60-70s. Labs notable for BUN 58, SCr 7.7 and lactic acid 4.9. 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) Social history: smoking (Current daily smoker), alcohol abuse Medications and Allergies Allergies Allergy/AdvReac Type Severity Reaction Status Date / Time No Known Allergies Allergy Unverified 06/11/20 00:01 Active Meds: Active Medications Acetaminophen (Tylenol) 650 mg PO Q4H PRN PRN Reason: Pain MILD(1-3)/Fever >100.5/HERRERA Sodium Chloride (Nacl 0.9% 1000 Ml) 1,000 mls @ 125 mls/hr IV DIRECT ALICE Piperacillin Sod/Tazobactam Sod (Zosyn/Ns 2.25 Gm/50ml) 2.25 gm in 50 mls @ 100 mls/hr IV Q8HR ALICE Last Admin: 06/11/20 06:12 Dose: 100 mls/hr Documented by: Norepinephrine (Levophed Drip 4 Mg/Ns 250 Ml) 4 mg in 250 mls @ 7.5 mls/hr IV TITR ALICE; Protocol Last Titration: 06/11/20 06:06 Dose: 11 mcg/min, 41.25 mls/hr Documented by: Morphine Sulfate (Morphine) 2 mg IV Q4H PRN PRN Reason: Pain, Moderate (4-6) Ondansetron HCl (Zofran) 4 mg IV Q8H PRN PRN Reason: Nausea And Vomiting Sodium Chloride (Sodium Chloride Flush Syringe 10 Ml) 10 ml IV BID ALICE Sodium Chloride (Sodium Chloride Flush Syringe 10 Ml) 10 ml IV PRN PRN PRN Reason: LINE FLUSH Review of Systems All systems: negative Exam - Vital Signs Vital signs: Vital Signs Temp Pulse BP 98.8 F 95 H 118/97 06/10/20 20:06 06/10/20 20:06 06/10/20 20:06 - General Appearance General appearance: well-developed, well-nourished EENT: ATNC Respiratory: Clear to Ascultation Heart: regular, S1S2 Gastrointestinal: Absent: tenderness, distended, guarding Integumentary: no rash, warm and dry Neurologic: other (sleeping, arousable to tactile stimuli, responds to questions) Musculoskeletal: Present: other (no edema) Psychiatric: cooperative Results - Lab Results 06/10/20 22:39 06/11/20 10:48 Most recent lab results Calcium 10.2 mg/dL (8.4-10.2) 06/10/20 22:39 Assessment and Plan Impression: * Nonoliguric JULIANA secondary to prerenal azotemia vs ATN * Sepsis * Intractable nausea/vomiting * Inguinal hernia -reducible * Altered mental status - secondary to multifactorial etiologies, sepsis vs uremia * Lactic acidosis - resolved w/ resuscitation Plan: * No acute indication for renal replacement at this time - lytes are stable, patient w/ good UOP - boo bag w/ clear yellow urine * Continue IVF for fluid resuscitation * Monitor lytes and volume status closely * Pressors prn to maintain MAP>65 * Strict I/O * Avoid potential nephrotoxins * Abx per primary team. Await blood cultures * Case discussed with Dr. Pleitez * AM labs ordered
--- NOTE | 2020-06-11 11:30 | Event Note ---
Date: 06/11/20 Planned reevaluation- Patient reports that he is feeling much better than when he came in. He continues to deny any abdominal pain or scrotal pain. His nausea has resolved. He has been given water and tolerated it without any problems. Vital signs are about the same. He is more awake now and oriented x3. He had no hesitation in the orientation answers Breathing is nonlabored. Abdomen is protuberant and soft. Nontender. Right scrotum is swollen again but reducible. Nontender during the reduction. Patient continues to have a reducible hernia and benign scrotum and abdomen. Overall, we generally do not see ischemic/necrotic bowel with a benign abdomen and hernia along with a normal lactate. Discussed the case with Dr. Adams. The renal failure could definitely cause his lethargy and some of his other symptoms. Difficult to explain the septic picture. We discussed the possibility of a diagnostic laparoscopy just to make sure the bowel is okay. However, in light of 2 consistent exams of a benign abdomen and nontender, reducible right inguinal scrotal hernia, it seems extremely unlikely that he has compromised intestine in that area. We will continue with the aggressive resuscitation and serial exams. Would ideally like to schedule a hernia repair when he is more stable. We will continue to follow. Please call with any questions.
[2020-06-11 11:32] LABS: Calcium 7.1 mg/dL (8.4-10.2)
[2020-06-11] MEDS ORDERED: NORepinephrine/NS 4 MG-250 ML 4 MG/250 ML BAG IV ONE ×2 (12:32→19:29)
--- NOTE | 2020-06-11 13:14 | Progress Note ---
Assessment and Plan Assessment and plan: Sepsis. Patient meets criteria given the leukocytosis, tachycardia and diagnosis of UTI. Continue IV antibiotics and follow-up blood and urine cultures. Continue Zosyn and consider ID consultation. Reducible inguinal hernia. Continue per surgery. Nonoliguric JULIANA. Etiology secondary to prerenal azotemia/ATN. Follow serial BMP. Intractable nausea and vomiting. Continue supportive care with IV fluid hydration and antiemetics. Toxic metabolic encephalopathy. Continue to treat underlying causes of sepsis/uremia. Lactic acidosis. Etiology likely secondary to dehydration. The high probability of a clinically significant, sudden or life threatening deterioration of the [immunologic and hemodynamic] system(s) required my full and direct attention, intervention and personal management. The aggregate critical care time was [32] minutes. This time is in addition to time spent performing reported procedures but includes the following: [x] Data Review and interpretation [x] Patient assessment and monitoring of vital signs [x] Documentation [x] Medication orders and management History Interval history: No new issues overnight Hospitalist Physical - Constitutional Vitals: Temp Pulse Resp BP Pulse Ox 98.8 F 118 H 23 101/58 100 06/10/20 20:06 06/11/20 12:20 06/11/20 12:20 06/11/20 12:20 06/11/20 12:20 General appearance: Present: no acute distress, well-nourished - EENT Eyes: Present: PERRL, EOM intact ENT: hearing intact, clear oral mucosa, dentition normal - Neck Neck: Present: supple, normal ROM - Respiratory Respiratory effort: normal Respiratory: bilateral: CTA - Cardiovascular Rhythm: regular Heart Sounds: Present: S1 & S2. Absent: gallop, rub - Extremities Extremities: no ischemia, No edema, Full ROM - Abdominal General gastrointestinal: soft, non-tender, non-distended, normal bowel sounds - Integumentary Integumentary: Present: clear, warm, dry - Neurologic Neurologic: CNII-XII intact, moves all extremities Results - Labs CBC & Chem 7: 06/10/20 22:39 06/11/20 10:48 Labs: Laboratory Last Values WBC 21.0 K/mm3 (4.5-11.0) H 06/10/20 22:39 RBC 4.91 M/mm3 (3.65-5.03) 06/10/20 22:39 Hgb 15.0 gm/dl (11.8-15.2) 06/10/20 22:39 Hct 44.5 % (35.5-45.6) 06/10/20 22:39 MCV 91 fl (84-94) 06/10/20 22:39 MCH 31 pg (28-32) 06/10/20 22:39 MCHC 34 % (32-34) 06/10/20 22:39 RDW 13.6 % (13.2-15.2) 06/10/20 22:39 Plt Count 505 K/mm3 (140-440) H 06/10/20 22:39 Add Manual Diff Complete 06/10/20 22:39 Total Counted 100 06/10/20 22:39 Seg Neuts % (Manual) 84.0 % (40.0-70.0) H 06/10/20 22:39 Band Neutrophils % 2.0 % 06/10/20 22:39 Lymphocytes % (Manual) 6.0 % (13.4-35.0) L 06/10/20 22:39 Reactive Lymphs % (Man) 0 % 06/10/20 22:39 Monocytes % (Manual) 8.0 % (0.0-7.3) H 06/10/20 22:39 Eosinophils % (Manual) 0 % (0.0-4.3) 06/10/20 22:39 Basophils % (Manual) 0 % (0.0-1.8) 06/10/20 22:39 Metamyelocytes % 0 % 06/10/20 22:39 Myelocytes % 0 % 06/10/20 22:39 Promyelocytes % 0 % 06/10/20 22:39 Blast Cells % 0 % 06/10/20 22:39 Nucleated RBC % Not Reportable 06/10/20 22:39 Seg Neutrophils # Man 17.6 K/mm3 (1.8-7.7) H 06/10/20 22:39 Band Neutrophils # 0.4 K/mm3 06/10/20 22:39 Lymphocytes # (Manual) 1.3 K/mm3 (1.2-5.4) 06/10/20 22:39 Abs React Lymphs (Man) 0.0 K/mm3 06/10/20 22:39 Monocytes # (Manual) 1.7 K/mm3 (0.0-0.8) H 06/10/20 22:39 Eosinophils # (Manual) 0.0 K/mm3 (0.0-0.4) 06/10/20 22:39 Basophils # (Manual) 0.0 K/mm3 (0.0-0.1) 06/10/20 22:39 Metamyelocytes # 0.0 K/mm3 06/10/20 22:39 Myelocytes # 0.0 K/mm3 06/10/20 22:39 Promyelocytes # 0.0 K/mm3 06/10/20 22:39 Blast Cells # 0.0 K/mm3 06/10/20 22:39 WBC Morphology Not Reportable 06/10/20 22:39 Hypersegmented Neuts Not Reportable 06/10/20 22:39 Hyposegmented Neuts Not Reportable 06/10/20 22:39 Hypogranular Neuts Not Reportable 06/10/20 22:39 Smudge Cells Not Reportable 06/10/20 22:39 Toxic Granulation Not Reportable 06/10/20 22:39 Toxic Vacuolation Not Reportable 06/10/20 22:39 Dohle Bodies Not Reportable 06/10/20 22:39 Pelger-Huet Anomaly Not Reportable 06/10/20 22:39 Lynette Rods Not Reportable 06/10/20 22:39 Platelet Estimate Consistent w auto 06/10/20 22:39 Clumped Platelets Not Reportable 06/10/20 22:39 Plt Clumps, EDTA Not Reportable 06/10/20 22:39 Large Platelets Not Reportable 06/10/20 22:39 Giant Platelets Not Reportable 06/10/20 22:39 Platelet Satelliting Not Reportable 06/10/20 22:39 Plt Morphology Comment Not Reportable 06/10/20 22:39 RBC Morphology Not Reportable 06/10/20 22:39 Dimorphic RBCs Not Reportable 06/10/20 22:39 Polychromasia Not Reportable 06/10/20 22:39 Hypochromasia Not Reportable 06/10/20 22:39 Poikilocytosis Not Reportable 06/10/20 22:39 Anisocytosis Not Reportable 06/10/20 22:39 Microcytosis Not Reportable 06/10/20 22:39 Macrocytosis Not Reportable 06/10/20 22:39 Spherocytes Not Reportable 06/10/20 22:39 Pappenheimer Bodies Not Reportable 06/10/20 22:39 Sickle Cells Not Reportable 06/10/20 22:39 Target Cells Rare 06/10/20 22:39 Tear Drop Cells Not Reportable 06/10/20 22:39 Ovalocytes Not Reportable 06/10/20 22:39 Helmet Cells Not Reportable 06/10/20 22:39 Jung-[place] Bodies Not Reportable 06/10/20 22:39 [place] Rings Not Reportable 06/10/20 22:39 [place] Cells Not Reportable 06/10/20 22:39 Bite Cells Not Reportable 06/10/20 22:39 Crenated Cell Not Reportable 06/10/20 22:39 Elliptocytes Not Reportable 06/10/20 22:39 Acanthocytes (Spur) Not Reportable 06/10/20 22:39 Rouleaux Not Reportable 06/10/20 22:39 Hemoglobin C Crystals Not Reportable 06/10/20 22:39 Schistocytes Not Reportable 06/10/20 22:39 Malaria parasites Not Reportable 06/10/20 22:39 Kee Bodies Not Reportable 06/10/20 22:39 Hem Pathologist Commnt No 06/10/20 22:39 PT 13.1 Sec. (12.2-14.9) 06/10/20 22:39 INR 0.97 (0.87-1.13) 06/10/20 22:39 Sodium 139 mmol/L (137-145) 06/11/20 10:48 Potassium 4.2 mmol/L (3.6-5.0) 06/11/20 10:48 Chloride 97.6 mmol/L (98-107) L 06/11/20 10:48 Carbon Dioxide 19 mmol/L (22-30) L 06/11/20 10:48 Anion Gap 27 mmol/L 06/11/20 10:48 BUN 69 mg/dL (9-20) H 06/11/20 10:48 Creatinine 7.3 mg/dL (0.8-1.3) H 06/11/20 10:48 Estimated GFR 8 ml/min 06/11/20 10:48 BUN/Creatinine Ratio 9 % 06/11/20 10:48 Glucose 148 mg/dL (75-100) H 06/11/20 10:48 Lactic Acid 1.20 mmol/L (0.7-2.0) 06/11/20 05:40 Calcium 7.1 mg/dL (8.4-10.2) L D 06/11/20 10:48 Total Bilirubin 0.50 mg/dL (0.1-1.2) 06/10/20 22:39 Direct Bilirubin < 0.2 mg/dL (0-0.2) 06/10/20 22:39 Indirect Bilirubin 0.3 mg/dL 06/10/20 22:39 AST 50 units/L (5-40) H 06/10/20 22:39 ALT 31 units/L (7-56) 06/10/20 22:39 Alkaline Phosphatase 115 units/L (35-129) 06/10/20 22:39 Total Protein 8.8 g/dL (6.3-8.2) H 06/10/20 22:39 Albumin 4.9 g/dL (3.9-5) 06/10/20 22:39 Albumin/Globulin Ratio 1.3 % 06/10/20 22:39 Amylase 127 units/L (27-131) 06/10/20 22:39 Lipase 24 units/L (13-60) 06/10/20 22:39 Urine Color Yellow (Yellow) 06/10/20 Unknown Urine Turbidity Cloudy (Clear) 06/10/20 Unknown Urine pH 5.0 (5.0-7.0) 06/10/20 Unknown Ur Specific [place] 1.013 (1.003-1.030) 06/10/20 Unknown Urine Protein >500 mg/dL (Negative) 06/10/20 Unknown Urine Glucose (UA) 150 mg/dL (Negative) 06/10/20 Unknown Urine Ketones Neg mg/dL (Negative) 06/10/20 Unknown Urine Blood Lg (Negative) 06/10/20 Unknown Urine Nitrite Neg (Negative) 06/10/20 Unknown Urine Bilirubin Neg (Negative) 06/10/20 Unknown Urine Urobilinogen < 2.0 mg/dL (<2.0) 06/10/20 Unknown Ur Leukocyte Esterase Neg (Negative) 06/10/20 Unknown Urine WBC (Auto) 19.0 /HPF (0.0-6.0) H 06/10/20 Unknown Urine RBC (Auto) 6.0 /HPF (0.0-6.0) 06/10/20 Unknown U Epithel Cells (Auto) 1.0 /HPF (0-13.0) 06/10/20 Unknown Urine Bacteria (Auto) 1+ /HPF (Negative) 06/10/20 Unknown Amorphous Crystals 1+ 06/10/20 Unknown Urine Mucus 1+ /HPF 06/10/20 Unknown Urine Sperm Few /HPF (HOT ROLLER) 06/10/20 Unknown Microbiology: Microbiology 06/11/20 00:35 Peripheral/Venous Blood Culture - Preliminary Culture in Progress 06/11/20 00:45 Peripheral/Venous Blood Culture - Preliminary Culture in Progress José/IV: IV Catheter Type [Right INT / Saline Lock Antecubital] Active Medications - Current Medications Current Medications: Generic Name Dose Route Start Last Admin Trade Name Freq PRN Reason Stop Dose Admin Acetaminophen 650 mg 06/11/20 02:08 Tylenol PO Q4H PRN Pain MILD(1-3)/Fever >100.5/HERRERA Sodium Chloride 1,000 mls @ 125 mls/hr 06/11/20 02:15 Nacl 0.9% 1000 Ml IV DIRECT ALICE Piperacillin Sod/Tazobactam Sod 2.25 gm in 50 mls @ 100 mls/hr 06/11/20 06:00 06/11/20 06:12 Zosyn/Ns 2.25 Gm/50ml IV 100 mls/hr Q8HR ALICE Administration Norepinephrine 4 mg in 250 mls @ 7.5 mls/hr 06/11/20 05:00 06/11/20 06:06 Levophed Drip 4 Mg/Ns 250 Ml IV 11 mcg/min TITR ALICE 41.25 mls/hr Titration Protocol 2 MCG/MIN Morphine Sulfate 2 mg 06/11/20 02:08 Morphine IV Q4H PRN Pain, Moderate (4-6) Ondansetron HCl 4 mg 06/11/20 02:08 Zofran IV Q8H PRN Nausea And Vomiting Sodium Chloride 10 ml 06/11/20 10:00 Sodium Chloride Flush Syringe 10 Ml IV BID ALICE Sodium Chloride 10 ml 06/11/20 02:08 Sodium Chloride Flush Syringe 10 Ml IV PRN PRN LINE FLUSH
[2020-06-11] MEDS ORDERED: cefTRIAXone/NS 1 GM/50 ML 1 GM/50 ML BAG IV ONE (16:49)
[2020-06-11] MEDS: cefTRIAXone/NS 1 GM/50 ML 1 GM/50 ML BAG IV SCH (16:50)
[2020-06-11] MEDS: SODIUM CHLORIDE 0.9% 1000 ML 1,000 ML IV SCH (21:24)
[2020-06-12] MEDS: NORepinephrine/NS 4 MG-250 ML 4 MG/250 ML BAG IV SCH (02:23)
[2020-06-12] MEDS: PIPERACIL-TAZO 2.25 GM/50 ML 2.25 GM/50 ML BAG IV SCH ×4 (02:41→21:42)
[2020-06-12 06:26] LABS: Hematocrit 32.7 % (35.5-45.6); Hemoglobin 11.3 gm/dl (11.8-15.2); Mean Corpuscular HGB Conc 34 % (32-34); Mean Corpuscular Volume 93 fl (84-94); Platelet Count 295 K/mm3 (140-440); Red Blood Count 3.53 M/mm3 (3.65-5.03); Red Cell Distribution Width 14.2 % (13.2-15.2)
[2020-06-12 06:37] LABS: INR 1.13 (0.87-1.13)
[2020-06-12 06:46] LABS: Calcium 7.9 mg/dL (8.4-10.2)
[2020-06-12 07:38] LABS: Band Neutrophils # (Manual) 0.5 K/mm3; Basophils % (Manual) 0 % (0.0-1.8); Eosinophils % (Manual) 0 % (0.0-4.3); Total Cells Counted 100
[2020-06-12 07:39] LABS: Anisocytosis 1+; Platelet Estimate Consistent w Auto
[2020-06-12] MEDS: SODIUM CHLORIDE 0.9% 1000 ML 1,000 ML IV SCH (10:39)
--- NOTE | 2020-06-12 10:45 | Progress Note ---
Assessment and Plan Assessment and plan: Sepsis. Patient meets criteria given the leukocytosis, tachycardia and diagnosis of UTI. Continue IV antibiotics and follow-up blood and urine cultures. Continue Zosyn and consider ID consultation. Reducible inguinal hernia. Continue per surgery. Nonoliguric JULIANA. Etiology secondary to prerenal azotemia/ATN. Follow serial BMP. Intractable nausea and vomiting. Continue supportive care with IV fluid hydration and antiemetics. Toxic metabolic encephalopathy. Continue to treat underlying causes of sepsis/uremia. Lactic acidosis. Etiology likely secondary to dehydration. 06/12/2020. Creatinine has improved 7.7--> 7.3--> 5.4. Continue IV fluid hydration and monitor BMP closely. Nephrology following. Surgery feels that it is extremely unlikely to have compromised/incarcerated inguinal hernia based on exam. Hernia repair per surgery recommendations. Hypotension has improved with IV fluid hydration. History Interval history: No new issues overnight Hospitalist Physical - Constitutional Vitals: Temp Pulse Resp BP Pulse Ox 99.2 F 124 H 21 108/59 92 06/12/20 08:00 06/12/20 07:20 06/12/20 07:20 06/12/20 07:20 06/12/20 07:20 General appearance: Present: no acute distress, well-nourished - EENT Eyes: Present: PERRL, EOM intact ENT: hearing intact, clear oral mucosa, dentition normal - Neck Neck: Present: supple, normal ROM - Respiratory Respiratory effort: normal Respiratory: bilateral: CTA - Cardiovascular Rhythm: regular Heart Sounds: Present: S1 & S2. Absent: gallop, rub - Extremities Extremities: no ischemia, No edema, Full ROM - Abdominal General gastrointestinal: soft, non-tender, non-distended, normal bowel sounds - Integumentary Integumentary: Present: clear, warm, dry - Neurologic Neurologic: CNII-XII intact, moves all extremities Results - Labs CBC & Chem 7: 06/12/20 04:26 06/12/20 04:26 Labs: Laboratory Last Values WBC 11.9 K/mm3 (4.5-11.0) H 06/12/20 04:26 RBC 3.53 M/mm3 (3.65-5.03) L 06/12/20 04:26 Hgb 11.3 gm/dl (11.8-15.2) L D 06/12/20 04:26 Hct 32.7 % (35.5-45.6) L D 06/12/20 04:26 MCV 93 fl (84-94) 06/12/20 04:26 MCH 32 pg (28-32) 06/12/20 04:26 MCHC 34 % (32-34) 06/12/20 04:26 RDW 14.2 % (13.2-15.2) 06/12/20 04:26 Plt Count 295 K/mm3 (140-440) 06/12/20 04:26 Add Manual Diff Complete 06/12/20 04:26 Total Counted 100 06/12/20 04:26 Seg Neuts % (Manual) 83.0 % (40.0-70.0) H 06/12/20 04:26 Band Neutrophils % 4.0 % 06/12/20 04:26 Lymphocytes % (Manual) 10.0 % (13.4-35.0) L 06/12/20 04:26 Reactive Lymphs % (Man) 0 % 06/12/20 04:26 Monocytes % (Manual) 3.0 % (0.0-7.3) 06/12/20 04:26 Eosinophils % (Manual) 0 % (0.0-4.3) 06/12/20 04:26 Basophils % (Manual) 0 % (0.0-1.8) 06/12/20 04:26 Metamyelocytes % 0 % 06/12/20 04:26 Myelocytes % 0 % 06/12/20 04:26 Promyelocytes % 0 % 06/12/20 04:26 Blast Cells % 0 % 06/12/20 04:26 Nucleated RBC % Not Reportable 06/12/20 04:26 Seg Neutrophils # Man 9.9 K/mm3 (1.8-7.7) H 06/12/20 04:26 Band Neutrophils # 0.5 K/mm3 06/12/20 04:26 Lymphocytes # (Manual) 1.2 K/mm3 (1.2-5.4) 06/12/20 04:26 Abs React Lymphs (Man) 0.0 K/mm3 06/12/20 04:26 Monocytes # (Manual) 0.4 K/mm3 (0.0-0.8) 06/12/20 04:26 Eosinophils # (Manual) 0.0 K/mm3 (0.0-0.4) 06/12/20 04:26 Basophils # (Manual) 0.0 K/mm3 (0.0-0.1) 06/12/20 04:26 Metamyelocytes # 0.0 K/mm3 06/12/20 04:26 Myelocytes # 0.0 K/mm3 06/12/20 04:26 Promyelocytes # 0.0 K/mm3 06/12/20 04:26 Blast Cells # 0.0 K/mm3 06/12/20 04:26 WBC Morphology Not Reportable 06/12/20 04:26 Hypersegmented Neuts Not Reportable 06/12/20 04:26 Hyposegmented Neuts Not Reportable 06/12/20 04:26 Hypogranular Neuts Not Reportable 06/12/20 04:26 Smudge Cells Not Reportable 06/12/20 04:26 Toxic Granulation Not Reportable 06/12/20 04:26 Toxic Vacuolation Not Reportable 06/12/20 04:26 Dohle Bodies Not Reportable 06/12/20 04:26 Pelger-Huet Anomaly Not Reportable 06/12/20 04:26 Lynette Rods Not Reportable 06/12/20 04:26 Platelet Estimate Consistent w auto 06/12/20 04:26 Clumped Platelets Not Reportable 06/12/20 04:26 Plt Clumps, EDTA Not Reportable 06/12/20 04:26 Large Platelets Not Reportable 06/12/20 04:26 Giant Platelets Not Reportable 06/12/20 04:26 Platelet Satelliting Not Reportable 06/12/20 04:26 Plt Morphology Comment Not Reportable 06/12/20 04:26 RBC Morphology Not Reportable 06/12/20 04:26 Dimorphic RBCs Not Reportable 06/12/20 04:26 Polychromasia Not Reportable 06/12/20 04:26 Hypochromasia Not Reportable 06/12/20 04:26 Poikilocytosis Not Reportable 06/12/20 04:26 Anisocytosis 1+ 06/12/20 04:26 Microcytosis Not Reportable 06/12/20 04:26 Macrocytosis Not Reportable 06/12/20 04:26 Spherocytes Not Reportable 06/12/20 04:26 Pappenheimer Bodies Not Reportable 06/12/20 04:26 Sickle Cells Not Reportable 06/12/20 04:26 Target Cells Not Reportable 06/12/20 04:26 Tear Drop Cells Not Reportable 06/12/20 04:26 Ovalocytes Not Reportable 06/12/20 04:26 Helmet Cells Not Reportable 06/12/20 04:26 Jung-[place] Bodies Not Reportable 06/12/20 04:26 [place] Rings Not Reportable 06/12/20 04:26 [place] Cells Not Reportable 06/12/20 04:26 Bite Cells Not Reportable 06/12/20 04:26 Crenated Cell Not Reportable 06/12/20 04:26 Elliptocytes Not Reportable 06/12/20 04:26 Acanthocytes (Spur) Not Reportable 06/12/20 04:26 Rouleaux Not Reportable 06/12/20 04:26 Hemoglobin C Crystals Not Reportable 06/12/20 04:26 Schistocytes Not Reportable 06/12/20 04:26 Malaria parasites Not Reportable 06/12/20 04:26 Kee Bodies Not Reportable 06/12/20 04:26 Hem Pathologist Commnt No 06/12/20 04:26 PT 14.7 Sec. (12.2-14.9) 06/12/20 04:26 INR 1.13 (0.87-1.13) 06/12/20 04:26 Sodium 141 mmol/L (137-145) 06/12/20 04:26 Potassium 3.6 mmol/L (3.6-5.0) 06/12/20 04:26 Chloride 104.5 mmol/L (98-107) 06/12/20 04:26 Carbon Dioxide 18 mmol/L (22-30) L 06/12/20 04:26 Anion Gap 22 mmol/L 06/12/20 04:26 BUN 75 mg/dL (9-20) H 06/12/20 04:26 Creatinine 5.4 mg/dL (0.8-1.3) H 06/12/20 04:26 Estimated GFR 11 ml/min 06/12/20 04:26 BUN/Creatinine Ratio 14 % 06/12/20 04:26 Glucose 154 mg/dL (75-100) H 06/12/20 04:26 Lactic Acid 1.20 mmol/L (0.7-2.0) 06/11/20 05:40 Calcium 7.9 mg/dL (8.4-10.2) L 06/12/20 04:26 Total Bilirubin 0.50 mg/dL (0.1-1.2) 06/10/20 22:39 Direct Bilirubin < 0.2 mg/dL (0-0.2) 06/10/20 22:39 Indirect Bilirubin 0.3 mg/dL 06/10/20 22:39 AST 50 units/L (5-40) H 06/10/20 22:39 ALT 31 units/L (7-56) 06/10/20 22:39 Alkaline Phosphatase 115 units/L (35-129) 06/10/20 22:39 Total Protein 8.8 g/dL (6.3-8.2) H 06/10/20 22:39 Albumin 4.9 g/dL (3.9-5) 06/10/20 22:39 Albumin/Globulin Ratio 1.3 % 06/10/20 22:39 Amylase 127 units/L (27-131) 06/10/20 22:39 Lipase 24 units/L (13-60) 06/10/20 22:39 Urine Color Yellow (Yellow) 06/10/20 Unknown Urine Turbidity Cloudy (Clear) 06/10/20 Unknown Urine pH 5.0 (5.0-7.0) 06/10/20 Unknown Ur Specific [place] 1.013 (1.003-1.030) 06/10/20 Unknown Urine Protein >500 mg/dL (Negative) 06/10/20 Unknown Urine Glucose (UA) 150 mg/dL (Negative) 06/10/20 Unknown Urine Ketones Neg mg/dL (Negative) 06/10/20 Unknown Urine Blood Lg (Negative) 06/10/20 Unknown Urine Nitrite Neg (Negative) 06/10/20 Unknown Urine Bilirubin Neg (Negative) 06/10/20 Unknown Urine Urobilinogen < 2.0 mg/dL (<2.0) 06/10/20 Unknown Ur Leukocyte Esterase Neg (Negative) 06/10/20 Unknown Urine WBC (Auto) 19.0 /HPF (0.0-6.0) H 06/10/20 Unknown Urine RBC (Auto) 6.0 /HPF (0.0-6.0) 06/10/20 Unknown U Epithel Cells (Auto) 1.0 /HPF (0-13.0) 06/10/20 Unknown Urine Bacteria (Auto) 1+ /HPF (Negative) 06/10/20 Unknown Amorphous Crystals 1+ 06/10/20 Unknown Urine Mucus 1+ /HPF 06/10/20 Unknown Urine Sperm Few /HPF (PAPER COATER) 06/10/20 Unknown Coronavirus (PCR) Negative (Negative) 06/11/20 08:47 Microbiology: Microbiology 06/10/20 Unknown Urine,Clean Catch Urine Culture - Preliminary NO GROWTH AFTER 24 HOURS 06/11/20 00:35 Peripheral/Venous Blood Culture - Preliminary NO GROWTH AFTER 24 HOURS 06/11/20 00:45 Peripheral/Venous Blood Culture - Preliminary NO GROWTH AFTER 24 HOURS José/IV: Voiding Method Indwelling Catheter IV Catheter Type [Left Peripheral IV Antecubital] IV Catheter Type [Right Peripheral IV Antecubital] Active Medications - Current Medications Current Medications: Generic Name Dose Route Start Last Admin Trade Name Freq PRN Reason Stop Dose Admin Acetaminophen 650 mg 06/11/20 02:08 Tylenol PO Q4H PRN Pain MILD(1-3)/Fever >100.5/HERRERA Sodium Chloride 1,000 mls @ 125 mls/hr 06/11/20 02:15 06/11/20 21:24 Nacl 0.9% 1000 Ml IV 125 mls/hr DIRECT ALICE Administration Piperacillin Sod/Tazobactam Sod 2.25 gm in 50 mls @ 100 mls/hr 06/11/20 06:00 06/12/20 02:41 Zosyn/Ns 2.25 Gm/50ml IV 100 mls/hr Q8HR ALICE Administration Norepinephrine 4 mg in 250 mls @ 7.5 mls/hr 06/11/20 05:00 06/12/20 06:06 Levophed Drip 4 Mg/Ns 250 Ml IV 0 mcg/min TITR ALICE 0 mls/hr Titration Protocol 2 MCG/MIN Ceftriaxone Sodium 1 gm in 50 mls @ 100 mls/hr 06/11/20 14:00 06/11/20 16:50 Rocephin/Ns 1 Gm/50 Ml IV 100 mls/hr Q24H ALICE Administration Protocol Morphine Sulfate 2 mg 06/11/20 02:08 Morphine IV Q4H PRN Pain, Moderate (4-6) Ondansetron HCl 4 mg 06/11/20 02:08 Zofran IV Q8H PRN Nausea And Vomiting Sodium Chloride 10 ml 06/11/20 10:00 06/11/20 16:47 Sodium Chloride Flush Syringe 10 Ml IV 10 ml BID ALICE Administration Sodium Chloride 10 ml 06/11/20 02:08 Sodium Chloride Flush Syringe 10 Ml IV PRN PRN LINE FLUSH
--- NOTE | 2020-06-12 12:08 | Progress Note ---
Assessment and Plan Impression: * Nonoliguric JULIANA secondary to prerenal azotemia vs ATN * Sepsis * Intractable nausea/vomiting * Inguinal/scrotal hernia, large * Altered mental status - secondary to multifactorial etiologies, sepsis vs uremia vs ?alcohol withdrawal * Lactic acidosis - resolved w/ resuscitation * Tachycardia Plan: * No acute indication for renal replacement at this time - lytes are stable, patient w/ good UOP * Continue IVF for fluid resuscitation * Recommend DT prophylaxis/CIWA protocol * Monitor lytes and volume status closely * Pressors prn to maintain MAP>65 * Strict I/O * Avoid potential nephrotoxins * Abx per primary team * AM labs ordered Subjective Date of service: 06/12/20 Interval history: No acute events overnight. Patient is currently off Levophed. Transfer to floor pending. Per RN, patient reported that he consumes liquor in additon to 3 beers daily. Objective - Vital Signs Vital signs: Vital Signs - 12hr 06/12/20 06/12/20 06/12/20 00:10 00:20 00:30 Temperature Pulse Rate 130 H 120 H 134 H Respiratory 22 18 16 Rate Blood Pressure 116/67 116/67 116/67 O2 Sat by Pulse 95 95 95 Oximetry 06/12/20 06/12/20 06/12/20 00:40 00:50 01:00 Temperature Pulse Rate 123 H 125 H 125 H Respiratory 19 18 19 Rate Blood Pressure 116/67 116/67 117/71 O2 Sat by Pulse 97 97 97 Oximetry 06/12/20 06/12/20 06/12/20 01:10 01:20 01:30 Temperature Pulse Rate 127 H 129 H 123 H Respiratory 19 19 18 Rate Blood Pressure 117/71 117/71 117/71 O2 Sat by Pulse 92 93 92 Oximetry 06/12/20 06/12/20 06/12/20 01:40 01:50 02:00 Temperature Pulse Rate 121 H 117 H 126 H Respiratory 19 22 19 Rate Blood Pressure 117/71 117/71 108/64 O2 Sat by Pulse 92 88 93 Oximetry 06/12/20 06/12/20 06/12/20 02:10 02:20 02:30 Temperature Pulse Rate 124 H 128 H 125 H Respiratory 20 20 17 Rate Blood Pressure 108/64 108/64 108/64 O2 Sat by Pulse 94 93 93 Oximetry 06/12/20 06/12/20 06/12/20 02:40 02:50 03:00 Temperature Pulse Rate 124 H 124 H 126 H Respiratory 20 26 H 21 Rate Blood Pressure 108/64 108/64 113/68 O2 Sat by Pulse 92 92 Oximetry 06/12/20 06/12/20 06/12/20 03:10 03:20 03:28 Temperature 100.7 F H Pulse Rate 122 H 121 H Respiratory 19 19 Rate Blood Pressure 113/68 113/68 O2 Sat by Pulse 92 92 Oximetry 06/12/20 06/12/20 06/12/20 03:30 03:40 03:50 Temperature Pulse Rate 127 H 123 H 131 H Respiratory 22 16 17 Rate Blood Pressure 113/68 113/68 113/68 O2 Sat by Pulse 94 94 95 Oximetry 06/12/20 06/12/20 06/12/20 04:00 04:10 04:20 Temperature Pulse Rate 131 H 126 H 127 H Respiratory 20 16 24 Rate Blood Pressure 114/71 114/71 114/71 O2 Sat by Pulse 94 92 92 Oximetry 06/12/20 06/12/20 06/12/20 04:31 04:41 04:51 Temperature Pulse Rate 130 H 126 H 122 H Respiratory 16 19 20 Rate Blood Pressure 114/71 114/71 114/71 O2 Sat by Pulse 93 93 92 Oximetry 06/12/20 06/12/20 06/12/20 05:00 05:11 05:21 Temperature Pulse Rate 121 H 124 H 124 H Respiratory 25 H 20 21 Rate Blood Pressure 106/55 106/55 106/55 O2 Sat by Pulse 94 94 93 Oximetry 06/12/20 06/12/20 06/12/20 05:31 05:41 05:51 Temperature Pulse Rate 123 H 124 H 125 H Respiratory 21 22 15 Rate Blood Pressure 106/55 106/55 106/55 O2 Sat by Pulse 93 93 94 Oximetry 06/12/20 06/12/20 06/12/20 06:00 06:11 06:21 Temperature Pulse Rate 126 H 123 H 124 H Respiratory 26 H 22 20 Rate Blood Pressure 99/61 99/61 99/61 O2 Sat by Pulse 94 94 94 Oximetry 06/12/20 06/12/20 06/12/20 06:31 06:40 06:52 Temperature Pulse Rate 117 H 124 H 123 H Respiratory 22 21 15 Rate Blood Pressure 99/61 99/61 99/61 O2 Sat by Pulse 89 93 92 Oximetry 06/12/20 06/12/20 06/12/20 07:00 07:10 07:20 Temperature Pulse Rate 124 H 124 H 124 H Respiratory 20 19 21 Rate Blood Pressure 108/59 108/59 108/59 O2 Sat by Pulse 92 93 92 Oximetry 06/12/20 06/12/20 06/12/20 07:31 07:41 07:51 Temperature Pulse Rate 124 H 123 H 124 H Respiratory 21 20 24 Rate Blood Pressure 108/59 108/59 108/59 O2 Sat by Pulse 92 92 92 Oximetry 06/12/20 06/12/20 06/12/20 08:00 08:11 08:21 Temperature 99.2 F Pulse Rate 125 H 128 H 127 H Respiratory 21 25 H 24 Rate Blood Pressure 109/56 109/56 109/56 O2 Sat by Pulse 93 82 L 88 Oximetry 06/12/20 06/12/20 06/12/20 08:31 08:41 08:51 Temperature Pulse Rate 127 H 124 H 126 H Respiratory 20 19 21 Rate Blood Pressure 109/56 109/56 109/56 O2 Sat by Pulse 94 93 93 Oximetry 06/12/20 06/12/20 06/12/20 09:00 09:11 09:21 Temperature Pulse Rate 125 H 124 H 125 H Respiratory 20 22 22 Rate Blood Pressure 111/58 111/58 111/58 O2 Sat by Pulse 93 93 91 Oximetry 06/12/20 06/12/20 06/12/20 09:31 09:41 09:51 Temperature Pulse Rate 125 H 123 H 127 H Respiratory 24 18 20 Rate Blood Pressure 111/58 111/58 111/58 O2 Sat by Pulse 92 93 92 Oximetry 06/12/20 06/12/20 06/12/20 10:00 10:11 10:21 Temperature Pulse Rate 126 H 123 H 126 H Respiratory 21 20 19 Rate Blood Pressure 110/62 110/62 110/62 O2 Sat by Pulse 94 94 95 Oximetry 06/12/20 06/12/20 10:31 10:41 Temperature Pulse Rate 126 H 130 H Respiratory 16 18 Rate Blood Pressure 110/62 110/62 O2 Sat by Pulse 97 96 Oximetry - General Appearance General appearance: well-developed, well-nourished EENT: ATNC Respiratory: Present: Clear to Ascultation Cardiology: tachycardia, S1S2 Gastrointestinal: normal Integumentary: warm and dry Neurologic: other (sleeping, arousable) - Lab 06/12/20 04:26 06/12/20 04:26 Most recent lab results Calcium 7.9 mg/dL (8.4-10.2) L 06/12/20 04:26 Medications & Allergies - Medications Allergies/Adverse Reactions: Allergies No Known Allergies Allergy (Unverified 06/11/20 00:01) Active Medications: Generic Name Dose Route Start Last Admin Trade Name Freq PRN Reason Stop Dose Admin Acetaminophen 650 mg 06/11/20 02:08 Tylenol PO Q4H PRN Pain MILD(1-3)/Fever >100.5/HERRERA Sodium Chloride 1,000 mls @ 125 mls/hr 06/11/20 02:15 06/12/20 10:39 Nacl 0.9% 1000 Ml IV 125 mls/hr DIRECT ALICE Administration Piperacillin Sod/Tazobactam Sod 2.25 gm in 50 mls @ 100 mls/hr 06/11/20 06:00 06/12/20 10:37 Zosyn/Ns 2.25 Gm/50ml IV 100 mls/hr Q8HR ALICE Administration Norepinephrine 4 mg in 250 mls @ 7.5 mls/hr 06/11/20 05:00 06/12/20 06:06 Levophed Drip 4 Mg/Ns 250 Ml IV 0 mcg/min TITR ALICE 0 mls/hr Titration Protocol 2 MCG/MIN Ceftriaxone Sodium 1 gm in 50 mls @ 100 mls/hr 06/11/20 14:00 06/11/20 16:50 Rocephin/Ns 1 Gm/50 Ml IV 100 mls/hr Q24H ALICE Administration Protocol Morphine Sulfate 2 mg 06/11/20 02:08 Morphine IV Q4H PRN Pain, Moderate (4-6) Ondansetron HCl 4 mg 06/11/20 02:08 Zofran IV Q8H PRN Nausea And Vomiting Sodium Chloride 10 ml 06/11/20 10:00 06/12/20 10:40 Sodium Chloride Flush Syringe 10 Ml IV Not Given BID ALICE Sodium Chloride 10 ml 06/11/20 02:08 Sodium Chloride Flush Syringe 10 Ml IV PRN PRN LINE FLUSH
--- NOTE | 2020-06-12 12:28 | Progress Note ---
Assessment and Plan (1) Right inguinal hernia Current Visit: Yes Status: Acute Plan to address problem: Pt stable. Pt with chronic right inguinal hernia. Hernia is soft without skin changes or tenderness to palpation, and has been reduced multiple times. Patient's white count is improved as well as his blood pressure, he is off pressors. Mental status likely due to uremia/leonor. He continues to respond well to resuscitation. Plan: 1. Continue with aggressive resuscitation. 2. Continue clear liquid diet 3. Once he is stabilized, we will plan for operative repair of his inguinal hernia. Pt is agreeable to surgery during this admission to repair hernia. Please note, the hernia opening is quite large. After it was reduced it easily comes out again. This is to be expected and not a concern. As long as it is able to be reduced, we should be fine to wait on surgery until he is more stable. Will follow along. Please call with questions. Subjective Date of service: 06/12/20 Narrative: Patient seen and examined. He has no acute complaints. He denies pain in his abdomen or the the groin and scrotum area. He is tolerating a liquid diet. He has had multiple bowel movements and is passing flatus. No nausea or vomiting. T-max overnight 100.7. The patient is off pressors. Objective Vital Signs - 12hr 06/12/20 06/12/20 06/12/20 00:30 00:40 00:50 Temperature Pulse Rate 134 H 123 H 125 H Respiratory 16 19 18 Rate Blood Pressure 116/67 116/67 116/67 O2 Sat by Pulse 95 97 97 Oximetry 06/12/20 06/12/20 06/12/20 01:00 01:10 01:20 Temperature Pulse Rate 125 H 127 H 129 H Respiratory 19 19 19 Rate Blood Pressure 117/71 117/71 117/71 O2 Sat by Pulse 97 92 93 Oximetry 06/12/20 06/12/20 06/12/20 01:30 01:40 01:50 Temperature Pulse Rate 123 H 121 H 117 H Respiratory 18 19 22 Rate Blood Pressure 117/71 117/71 117/71 O2 Sat by Pulse 92 92 88 Oximetry 06/12/20 06/12/20 06/12/20 02:00 02:10 02:20 Temperature Pulse Rate 126 H 124 H 128 H Respiratory 19 20 20 Rate Blood Pressure 108/64 108/64 108/64 O2 Sat by Pulse 93 94 93 Oximetry 06/12/20 06/12/20 06/12/20 02:30 02:40 02:50 Temperature Pulse Rate 125 H 124 H 124 H Respiratory 17 20 26 H Rate Blood Pressure 108/64 108/64 108/64 O2 Sat by Pulse 93 92 92 Oximetry 06/12/20 06/12/20 06/12/20 03:00 03:10 03:20 Temperature Pulse Rate 126 H 122 H 121 H Respiratory 21 19 19 Rate Blood Pressure 113/68 113/68 113/68 O2 Sat by Pulse 92 92 Oximetry 06/12/20 06/12/20 06/12/20 03:28 03:30 03:40 Temperature 100.7 F H Pulse Rate 127 H 123 H Respiratory 22 16 Rate Blood Pressure 113/68 113/68 O2 Sat by Pulse 94 94 Oximetry 06/12/20 06/12/20 06/12/20 03:50 04:00 04:10 Temperature Pulse Rate 131 H 131 H 126 H Respiratory 17 20 16 Rate Blood Pressure 113/68 114/71 114/71 O2 Sat by Pulse 95 94 92 Oximetry 06/12/20 06/12/20 06/12/20 04:20 04:31 04:41 Temperature Pulse Rate 127 H 130 H 126 H Respiratory 24 16 19 Rate Blood Pressure 114/71 114/71 114/71 O2 Sat by Pulse 92 93 93 Oximetry 06/12/20 06/12/20 06/12/20 04:51 05:00 05:11 Temperature Pulse Rate 122 H 121 H 124 H Respiratory 20 25 H 20 Rate Blood Pressure 114/71 106/55 106/55 O2 Sat by Pulse 92 94 94 Oximetry 06/12/20 06/12/20 06/12/20 05:21 05:31 05:41 Temperature Pulse Rate 124 H 123 H 124 H Respiratory 21 21 22 Rate Blood Pressure 106/55 106/55 106/55 O2 Sat by Pulse 93 93 93 Oximetry 06/12/20 06/12/20 06/12/20 05:51 06:00 06:11 Temperature Pulse Rate 125 H 126 H 123 H Respiratory 15 26 H 22 Rate Blood Pressure 106/55 99/61 99/61 O2 Sat by Pulse 94 94 94 Oximetry 06/12/20 06/12/20 06/12/20 06:21 06:31 06:40 Temperature Pulse Rate 124 H 117 H 124 H Respiratory 20 22 21 Rate Blood Pressure 99/61 99/61 99/61 O2 Sat by Pulse 94 89 93 Oximetry 06/12/20 06/12/20 06/12/20 06:52 07:00 07:10 Temperature Pulse Rate 123 H 124 H 124 H Respiratory 15 20 19 Rate Blood Pressure 99/61 108/59 108/59 O2 Sat by Pulse 92 92 93 Oximetry 06/12/20 06/12/20 06/12/20 07:20 07:31 07:41 Temperature Pulse Rate 124 H 124 H 123 H Respiratory 21 21 20 Rate Blood Pressure 108/59 108/59 108/59 O2 Sat by Pulse 92 92 92 Oximetry 06/12/20 06/12/20 06/12/20 07:51 08:00 08:11 Temperature 99.2 F Pulse Rate 124 H 125 H 128 H Respiratory 24 21 25 H Rate Blood Pressure 108/59 109/56 109/56 O2 Sat by Pulse 92 93 82 L Oximetry 06/12/20 06/12/20 06/12/20 08:21 08:31 08:41 Temperature Pulse Rate 127 H 127 H 124 H Respiratory 24 20 19 Rate Blood Pressure 109/56 109/56 109/56 O2 Sat by Pulse 88 94 93 Oximetry 06/12/20 06/12/20 06/12/20 08:51 09:00 09:11 Temperature Pulse Rate 126 H 125 H 124 H Respiratory 21 20 22 Rate Blood Pressure 109/56 111/58 111/58 O2 Sat by Pulse 93 93 93 Oximetry 06/12/20 06/12/20 06/12/20 09:21 09:31 09:41 Temperature Pulse Rate 125 H 125 H 123 H Respiratory 22 24 18 Rate Blood Pressure 111/58 111/58 111/58 O2 Sat by Pulse 91 92 93 Oximetry 06/12/20 06/12/20 06/12/20 09:51 10:00 10:11 Temperature Pulse Rate 127 H 126 H 123 H Respiratory 20 21 20 Rate Blood Pressure 111/58 110/62 110/62 O2 Sat by Pulse 92 94 94 Oximetry 06/12/20 06/12/20 06/12/20 10:21 10:31 10:41 Temperature Pulse Rate 126 H 126 H 130 H Respiratory 19 16 18 Rate Blood Pressure 110/62 110/62 110/62 O2 Sat by Pulse 95 97 96 Oximetry - General physical appearance Narrative Exam: Gen.: Awake and alert. Appears sleepy. No apparent distress ENT: Trachea midline. No lymphadenopathy. No scleral icterus or conjunctival pallor CV: S1, S2 present Respiratory: No audible wheezes Abdomen: Soft, mildly distended, nontender. Large right inguinoscrotal hernia is partially reducible without skin changes or tenderness during reduction. Attempts at reduction made while patient was sitting up as he had just drank a full tray of clear liquids. No rebound, rigidity, guarding Extremities: No clubbing, cyanosis, edema - Labs 06/12/20 04:26 06/12/20 04:26 Diabetes panel 06/12/20 Range/Units 04:26 Sodium 141 (137-145) mmol/L Potassium 3.6 (3.6-5.0) mmol/L Chloride 104.5 (98-107) mmol/L Carbon Dioxide 18 L (22-30) mmol/L BUN 75 H (9-20) mg/dL Creatinine 5.4 H (0.8-1.3) mg/dL Glucose 154 H (75-100) mg/dL Calcium 7.9 L (8.4-10.2) mg/dL Calcium panel 06/12/20 Range/Units 04:26 Calcium 7.9 L (8.4-10.2) mg/dL Pituitary panel 06/12/20 Range/Units 04:26 Sodium 141 (137-145) mmol/L Potassium 3.6 (3.6-5.0) mmol/L Chloride 104.5 (98-107) mmol/L Carbon Dioxide 18 L (22-30) mmol/L BUN 75 H (9-20) mg/dL Creatinine 5.4 H (0.8-1.3) mg/dL Glucose 154 H (75-100) mg/dL Calcium 7.9 L (8.4-10.2) mg/dL Adrenal panel 06/12/20 Range/Units 04:26 Sodium 141 (137-145) mmol/L Potassium 3.6 (3.6-5.0) mmol/L Chloride 104.5 (98-107) mmol/L Carbon Dioxide 18 L (22-30) mmol/L BUN 75 H (9-20) mg/dL Creatinine 5.4 H (0.8-1.3) mg/dL Glucose 154 H (75-100) mg/dL Calcium 7.9 L (8.4-10.2) mg/dL
--- NOTE | 2020-06-12 12:49 | Consultation ---
History of Present Illness Consult date: 06/12/20 Requesting physician: ROSINA MARC Reason for consult: other (Incarcerated inguinal hernia) History of present illness: Unclear reason ICU consult placed. 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) Social history: smoking (Current daily smoker), alcohol abuse Medications and Allergies Allergies Allergy/AdvReac Type Severity Reaction Status Date / Time No Known Allergies Allergy Unverified 06/11/20 00:01 Active Meds: Active Medications Acetaminophen (Tylenol) 650 mg PO Q4H PRN PRN Reason: Pain MILD(1-3)/Fever >100.5/HERRERA Sodium Chloride (Nacl 0.9% 1000 Ml) 1,000 mls @ 125 mls/hr IV DIRECT ALICE Last Admin: 06/12/20 10:39 Dose: 125 mls/hr Documented by: Piperacillin Sod/Tazobactam Sod (Zosyn/Ns 2.25 Gm/50ml) 2.25 gm in 50 mls @ 100 mls/hr IV Q8HR ALICE Last Admin: 06/12/20 10:37 Dose: 100 mls/hr Documented by: Norepinephrine (Levophed Drip 4 Mg/Ns 250 Ml) 4 mg in 250 mls @ 7.5 mls/hr IV TITR ALICE; Protocol Last Titration: 06/12/20 06:06 Dose: 0 mcg/min, 0 mls/hr Documented by: Ceftriaxone Sodium (Rocephin/Ns 1 Gm/50 Ml) 1 gm in 50 mls @ 100 mls/hr IV Q24H ALICE; Protocol Last Admin: 06/11/20 16:50 Dose: 100 mls/hr Documented by: Morphine Sulfate (Morphine) 2 mg IV Q4H PRN PRN Reason: Pain, Moderate (4-6) Ondansetron HCl (Zofran) 4 mg IV Q8H PRN PRN Reason: Nausea And Vomiting Sodium Chloride (Sodium Chloride Flush Syringe 10 Ml) 10 ml IV BID ALICE Last Admin: 06/12/20 10:40 Dose: Not Given Documented by: Sodium Chloride (Sodium Chloride Flush Syringe 10 Ml) 10 ml IV PRN PRN PRN Reason: LINE FLUSH Physical Examination Vital signs: Vital Signs Temp Pulse BP 98.8 F 95 H 118/97 06/10/20 20:06 06/10/20 20:06 06/10/20 20:06 Results - Laboratory Findings CBC and BMP: 06/12/20 04:26 06/12/20 04:26 PT/INR, D-dimer PT 14.7 Sec. (12.2-14.9) 06/12/20 04:26 INR 1.13 (0.87-1.13) 06/12/20 04:26 Abnormal lab findings: Abnormal Labs 06/10/20 06/10/20 06/10/20 22:39 22:39 Unknown WBC 21.0 H RBC Hgb Hct Plt Count 505 H Seg Neuts % (Manual) 84.0 H Lymphocytes % (Manual) 6.0 L Monocytes % (Manual) 8.0 H Seg Neutrophils # Man 17.6 H Monocytes # (Manual) 1.7 H Chloride 80.1 L Carbon Dioxide BUN 58 H Creatinine 7.7 H Glucose 147 H Lactic Acid Calcium AST 50 H Total Protein 8.8 H Urine WBC (Auto) 19.0 H 06/11/20 06/11/20 06/12/20 00:45 10:48 04:26 WBC 11.9 H RBC 3.53 L Hgb 11.3 L D Hct 32.7 L D Plt Count Seg Neuts % (Manual) 83.0 H Lymphocytes % (Manual) 10.0 L Monocytes % (Manual) Seg Neutrophils # Man 9.9 H Monocytes # (Manual) Chloride 97.6 L Carbon Dioxide 19 L BUN 69 H Creatinine 7.3 H Glucose 148 H Lactic Acid 4.90 H* Calcium 7.1 L D AST Total Protein Urine WBC (Auto) 06/12/20 04:26 WBC RBC Hgb Hct Plt Count Seg Neuts % (Manual) Lymphocytes % (Manual) Monocytes % (Manual) Seg Neutrophils # Man Monocytes # (Manual) Chloride Carbon Dioxide 18 L BUN 75 H Creatinine 5.4 H Glucose 154 H Lactic Acid Calcium 7.9 L AST Total Protein Urine WBC (Auto)
[2020-06-12] MEDS: cefTRIAXone/NS 1 GM/50 ML 1 GM/50 ML BAG IV SCH (14:34)
[2020-06-12] MEDS ORDERED: LORazepam 2 MG/ML VIAL IV PRN (14:46)
[2020-06-13 05:23] LABS: Basophils % (Auto) 0.3 % (0.0-1.8); Eosinophils % (Auto) 0.2 % (0.0-4.3); Hematocrit 29.8 % (35.5-45.6); Hemoglobin 9.7 gm/dl (11.8-15.2); Lymphocytes # (Auto) 1.7 K/mm3 (1.2-5.4); Lymphocytes % (Auto) 13.5 % (13.4-35.0); Mean Corpuscular HGB Conc 33 % (32-34); Mean Corpuscular Volume 93 fl (84-94); Monocytes # (Auto) 1.3 K/mm3 (0.0-0.8); Monocytes % (Auto) 10.4 % (0.0-7.3); Platelet Count 259 K/mm3 (140-440)
[2020-06-13] MEDS: SODIUM CHLORIDE 0.9% 1000 ML 1,000 ML IV SCH ×2 (05:28→20:48)
[2020-06-13] MEDS: PIPERACIL-TAZO 2.25 GM/50 ML 2.25 GM/50 ML BAG IV SCH ×3 (05:29→21:30)
[2020-06-13 05:41] LABS: Calcium 8.3 mg/dL (8.4-10.2)
--- NOTE | 2020-06-13 09:42 | Progress Note ---
Assessment and Plan Assessment and plan: Sepsis. Patient meets criteria given the leukocytosis, tachycardia and diagnosis of UTI. Continue IV antibiotics and follow-up blood and urine cultures. Continue Zosyn and consider ID consultation. Reducible inguinal hernia. Continue per surgery. Nonoliguric JULIANA. Etiology secondary to prerenal azotemia/ATN. Follow serial BMP. Intractable nausea and vomiting. Continue supportive care with IV fluid hydration and antiemetics. Toxic metabolic encephalopathy. Continue to treat underlying causes of sepsis/uremia. Lactic acidosis. Etiology likely secondary to dehydration. 06/12/2020. Creatinine has improved 7.7--> 7.3--> 5.4. Continue IV fluid hydration and monitor BMP closely. Nephrology following. Surgery feels that it is extremely unlikely to have compromised/incarcerated inguinal hernia based on exam. Hernia repair per surgery recommendations. Hypotension has improved with IV fluid hydration. 06/13/2020. Creatinine with steady improvement since admission 7.7--> 7.3--> 5.4 -->4.4. Continue IV fluid hydration and monitor BMP closely. Nephrology following. Surgery feels that it is extremely unlikely to have compromised/incarcerated inguinal hernia based on exam. Hernia repair per surgery recommendations. Hypotension has resolved with IV fluid hydration History Interval history: No new issues overnight Hospitalist Physical - Constitutional Vitals: Temp Pulse Resp BP Pulse Ox 98.0 F 113 H 17 107/68 97 06/13/20 08:20 06/13/20 08:20 06/13/20 08:20 06/13/20 08:20 06/13/20 08:20 General appearance: Present: no acute distress, well-nourished - EENT Eyes: Present: PERRL, EOM intact ENT: hearing intact, clear oral mucosa, dentition normal - Neck Neck: Present: supple, normal ROM - Respiratory Respiratory effort: normal Respiratory: bilateral: CTA - Cardiovascular Rhythm: regular Heart Sounds: Present: S1 & S2. Absent: gallop, rub - Extremities Extremities: no ischemia, No edema, Full ROM - Abdominal General gastrointestinal: soft, non-tender, non-distended, normal bowel sounds - Integumentary Integumentary: Present: clear, warm, dry - Neurologic Neurologic: CNII-XII intact, moves all extremities Results - Labs CBC & Chem 7: 06/13/20 04:54 06/13/20 04:54 Labs: Laboratory Last Values WBC 12.4 K/mm3 (4.5-11.0) H 06/13/20 04:54 RBC 3.20 M/mm3 (3.65-5.03) L 06/13/20 04:54 Hgb 9.7 gm/dl (11.8-15.2) L 06/13/20 04:54 Hct 29.8 % (35.5-45.6) L 06/13/20 04:54 MCV 93 fl (84-94) 06/13/20 04:54 MCH 30 pg (28-32) 06/13/20 04:54 MCHC 33 % (32-34) 06/13/20 04:54 RDW 14.0 % (13.2-15.2) 06/13/20 04:54 Plt Count 259 K/mm3 (140-440) 06/13/20 04:54 Lymph % (Auto) 13.5 % (13.4-35.0) 06/13/20 04:54 Pike % (Auto) 10.4 % (0.0-7.3) H 06/13/20 04:54 Eos % (Auto) 0.2 % (0.0-4.3) 06/13/20 04:54 Baso % (Auto) 0.3 % (0.0-1.8) 06/13/20 04:54 Lymph # 1.7 K/mm3 (1.2-5.4) 06/13/20 04:54 Pike # 1.3 K/mm3 (0.0-0.8) H 06/13/20 04:54 Eos # 0.0 K/mm3 (0.0-0.4) 06/13/20 04:54 Baso # 0.0 K/mm3 (0.0-0.1) 06/13/20 04:54 Add Manual Diff Complete 06/12/20 04:26 Total Counted 100 06/12/20 04:26 Seg Neutrophils % 75.6 % (40.0-70.0) H 06/13/20 04:54 Seg Neuts % (Manual) 83.0 % (40.0-70.0) H 06/12/20 04:26 Band Neutrophils % 4.0 % 06/12/20 04:26 Lymphocytes % (Manual) 10.0 % (13.4-35.0) L 06/12/20 04:26 Reactive Lymphs % (Man) 0 % 06/12/20 04:26 Monocytes % (Manual) 3.0 % (0.0-7.3) 06/12/20 04:26 Eosinophils % (Manual) 0 % (0.0-4.3) 06/12/20 04:26 Basophils % (Manual) 0 % (0.0-1.8) 06/12/20 04:26 Metamyelocytes % 0 % 06/12/20 04:26 Myelocytes % 0 % 06/12/20 04:26 Promyelocytes % 0 % 06/12/20 04:26 Blast Cells % 0 % 06/12/20 04:26 Nucleated RBC % Not Reportable 06/12/20 04:26 Seg Neutrophils # 9.3 K/mm3 (1.8-7.7) H 06/13/20 04:54 Seg Neutrophils # Man 9.9 K/mm3 (1.8-7.7) H 06/12/20 04:26 Band Neutrophils # 0.5 K/mm3 06/12/20 04:26 Lymphocytes # (Manual) 1.2 K/mm3 (1.2-5.4) 06/12/20 04:26 Abs React Lymphs (Man) 0.0 K/mm3 06/12/20 04:26 Monocytes # (Manual) 0.4 K/mm3 (0.0-0.8) 06/12/20 04:26 Eosinophils # (Manual) 0.0 K/mm3 (0.0-0.4) 06/12/20 04:26 Basophils # (Manual) 0.0 K/mm3 (0.0-0.1) 06/12/20 04:26 Metamyelocytes # 0.0 K/mm3 06/12/20 04:26 Myelocytes # 0.0 K/mm3 06/12/20 04:26 Promyelocytes # 0.0 K/mm3 06/12/20 04:26 Blast Cells # 0.0 K/mm3 06/12/20 04:26 WBC Morphology Not Reportable 06/12/20 04:26 Hypersegmented Neuts Not Reportable 06/12/20 04:26 Hyposegmented Neuts Not Reportable 06/12/20 04:26 Hypogranular Neuts Not Reportable 06/12/20 04:26 Smudge Cells Not Reportable 06/12/20 04:26 Toxic Granulation Not Reportable 06/12/20 04:26 Toxic Vacuolation Not Reportable 06/12/20 04:26 Dohle Bodies Not Reportable 06/12/20 04:26 Pelger-Huet Anomaly Not Reportable 06/12/20 04:26 Lynette Rods Not Reportable 06/12/20 04:26 Platelet Estimate Consistent w auto 06/12/20 04:26 Clumped Platelets Not Reportable 06/12/20 04:26 Plt Clumps, EDTA Not Reportable 06/12/20 04:26 Large Platelets Not Reportable 06/12/20 04:26 Giant Platelets Not Reportable 06/12/20 04:26 Platelet Satelliting Not Reportable 06/12/20 04:26 Plt Morphology Comment Not Reportable 06/12/20 04:26 RBC Morphology Not Reportable 06/12/20 04:26 Dimorphic RBCs Not Reportable 06/12/20 04:26 Polychromasia Not Reportable 06/12/20 04:26 Hypochromasia Not Reportable 06/12/20 04:26 Poikilocytosis Not Reportable 06/12/20 04:26 Anisocytosis 1+ 06/12/20 04:26 Microcytosis Not Reportable 06/12/20 04:26 Macrocytosis Not Reportable 06/12/20 04:26 Spherocytes Not Reportable 06/12/20 04:26 Pappenheimer Bodies Not Reportable 06/12/20 04:26 Sickle Cells Not Reportable 06/12/20 04:26 Target Cells Not Reportable 06/12/20 04:26 Tear Drop Cells Not Reportable 06/12/20 04:26 Ovalocytes Not Reportable 06/12/20 04:26 Helmet Cells Not Reportable 06/12/20 04:26 Jung-Concepcion Bodies Not Reportable 06/12/20 04:26 [place] Rings Not Reportable 06/12/20 04:26 Coty Cells Not Reportable 06/12/20 04:26 Bite Cells Not Reportable 06/12/20 04:26 Crenated Cell Not Reportable 06/12/20 04:26 Elliptocytes Not Reportable 06/12/20 04:26 Acanthocytes (Spur) Not Reportable 06/12/20 04:26 Rouleaux Not Reportable 06/12/20 04:26 Hemoglobin C Crystals Not Reportable 06/12/20 04:26 Schistocytes Not Reportable 06/12/20 04:26 Malaria parasites Not Reportable 06/12/20 04:26 Kee Bodies Not Reportable 06/12/20 04:26 Hem Pathologist Commnt No 06/12/20 04:26 PT 14.7 Sec. (12.2-14.9) 06/12/20 04:26 INR 1.13 (0.87-1.13) 06/12/20 04:26 Sodium 138 mmol/L (137-145) 06/13/20 04:54 Potassium 4.0 mmol/L (3.6-5.0) 06/13/20 04:54 Chloride 103.2 mmol/L (98-107) 06/13/20 04:54 Carbon Dioxide 20 mmol/L (22-30) L 06/13/20 04:54 Anion Gap 19 mmol/L 06/13/20 04:54 BUN 76 mg/dL (9-20) H 06/13/20 04:54 Creatinine 4.4 mg/dL (0.8-1.3) H 06/13/20 04:54 Estimated GFR 14 ml/min 06/13/20 04:54 BUN/Creatinine Ratio 17 % 06/13/20 04:54 Glucose 112 mg/dL (75-100) H 06/13/20 04:54 Lactic Acid 1.20 mmol/L (0.7-2.0) 06/11/20 05:40 Calcium 8.3 mg/dL (8.4-10.2) L 06/13/20 04:54 Total Bilirubin 0.50 mg/dL (0.1-1.2) 06/10/20 22:39 Direct Bilirubin < 0.2 mg/dL (0-0.2) 06/10/20 22:39 Indirect Bilirubin 0.3 mg/dL 06/10/20 22:39 AST 50 units/L (5-40) H 06/10/20 22:39 ALT 31 units/L (7-56) 06/10/20 22:39 Alkaline Phosphatase 115 units/L (35-129) 06/10/20 22:39 Total Protein 8.8 g/dL (6.3-8.2) H 06/10/20 22:39 Albumin 4.9 g/dL (3.9-5) 06/10/20 22:39 Albumin/Globulin Ratio 1.3 % 06/10/20 22:39 Amylase 127 units/L (27-131) 06/10/20 22:39 Lipase 24 units/L (13-60) 06/10/20 22:39 Urine Color Yellow (Yellow) 06/10/20 Unknown Urine Turbidity Cloudy (Clear) 06/10/20 Unknown Urine pH 5.0 (5.0-7.0) 06/10/20 Unknown Ur Specific [place] 1.013 (1.003-1.030) 06/10/20 Unknown Urine Protein >500 mg/dL (Negative) 06/10/20 Unknown Urine Glucose (UA) 150 mg/dL (Negative) 06/10/20 Unknown Urine Ketones Neg mg/dL (Negative) 06/10/20 Unknown Urine Blood Lg (Negative) 06/10/20 Unknown Urine Nitrite Neg (Negative) 06/10/20 Unknown Urine Bilirubin Neg (Negative) 06/10/20 Unknown Urine Urobilinogen < 2.0 mg/dL (<2.0) 06/10/20 Unknown Ur Leukocyte Esterase Neg (Negative) 06/10/20 Unknown Urine WBC (Auto) 19.0 /HPF (0.0-6.0) H 06/10/20 Unknown Urine RBC (Auto) 6.0 /HPF (0.0-6.0) 06/10/20 Unknown U Epithel Cells (Auto) 1.0 /HPF (0-13.0) 06/10/20 Unknown Urine Bacteria (Auto) 1+ /HPF (Negative) 06/10/20 Unknown Amorphous Crystals 1+ 06/10/20 Unknown Urine Mucus 1+ /HPF 06/10/20 Unknown Urine Sperm Few /HPF (ENVIRONMENTAL QUALITY ANALYST) 06/10/20 Unknown Coronavirus (PCR) Negative (Negative) 06/11/20 08:47 Microbiology: Microbiology 06/10/20 Unknown Urine,Clean Catch Urine Culture - Final NO GROWTH AFTER 48 HOURS 06/11/20 00:35 Peripheral/Venous Blood Culture - Preliminary NO GROWTH AFTER 48 HOURS 06/11/20 00:45 Peripheral/Venous Blood Culture - Preliminary NO GROWTH AFTER 48 HOURS José/IV: Voiding Method Indwelling Catheter IV Catheter Type [Left Peripheral IV Antecubital] IV Catheter Type [Right Peripheral IV Antecubital] Active Medications - Current Medications Current Medications: Generic Name Dose Route Start Last Admin Trade Name Freq PRN Reason Stop Dose Admin Acetaminophen 650 mg 06/11/20 02:08 Tylenol PO Q4H PRN Pain MILD(1-3)/Fever >100.5/HERRERA Sodium Chloride 1,000 mls @ 125 mls/hr 06/11/20 02:15 06/13/20 05:28 Nacl 0.9% 1000 Ml IV 125 mls/hr DIRECT ALICE Administration Piperacillin Sod/Tazobactam Sod 2.25 gm in 50 mls @ 100 mls/hr 06/11/20 06:00 06/13/20 05:29 Zosyn/Ns 2.25 Gm/50ml IV 100 mls/hr Q8HR ALICE Administration Ceftriaxone Sodium 1 gm in 50 mls @ 100 mls/hr 06/11/20 14:00 06/12/20 14:34 Rocephin/Ns 1 Gm/50 Ml IV 100 mls/hr Q24H ALICE Administration Protocol Lorazepam 4 mg 06/12/20 14:46 Ativan IV Q15MIN PRN CIWA-Ar >25 Morphine Sulfate 2 mg 06/11/20 02:08 Morphine IV Q4H PRN Pain, Moderate (4-6) Ondansetron HCl 4 mg 06/11/20 02:08 Zofran IV Q8H PRN Nausea And Vomiting Sodium Chloride 10 ml 06/11/20 10:00 06/12/20 21:43 Sodium Chloride Flush Syringe 10 Ml IV 10 ml BID ALICE Administration Sodium Chloride 10 ml 06/11/20 02:08 Sodium Chloride Flush Syringe 10 Ml IV PRN PRN LINE FLUSH
--- NOTE | 2020-06-13 12:19 | Progress Note ---
Assessment and Plan Impression: * Nonoliguric JULIANA secondary to prerenal azotemia vs ATN * Sepsis * Intractable nausea/vomiting * Inguinal/scrotal hernia, large * Altered mental status - secondary to multifactorial etiologies, sepsis vs uremia vs ?alcohol withdrawal * Lactic acidosis - resolved w/ resuscitation * Tachycardia Plan: * No acute indication for renal replacement at this time - renal function is improving * Continue IVF for fluid resuscitation * Abx per primary team * Surgery following * Monitor lytes and volume status closely * Strict I/O * Avoid potential nephrotoxins * AM labs ordered * DT prophylaxis/CIWA protocol Subjective Date of service: 06/13/20 Interval history: Patient transferred out of ICU to floor. No acute events overnight Objective - Vital Signs Vital signs: Vital Signs - 12hr 06/13/20 06/13/20 06/13/20 05:01 08:17 08:20 Temperature 98.1 F 98.0 F 98.0 F Pulse Rate 117 H 116 H 113 H Respiratory 20 17 17 Rate Blood Pressure 111/73 107/68 Blood Pressure 107/68 [Left] O2 Sat by Pulse 96 97 97 Oximetry 06/13/20 11:11 Temperature 98.6 F Pulse Rate 109 H Respiratory 17 Rate Blood Pressure 122/72 Blood Pressure [Left] O2 Sat by Pulse 95 Oximetry - General Appearance General appearance: well-developed, well-nourished EENT: ATNC Respiratory: Present: Clear to Ascultation Cardiology: regular, S1S2 Gastrointestinal: normal, no tenderness, no distended Integumentary: warm and dry Psychiatric: other (sleeping, resting comfortably) - Lab 06/13/20 04:54 06/13/20 04:54 Most recent lab results Calcium 8.3 mg/dL (8.4-10.2) L 06/13/20 04:54 Medications & Allergies - Medications Allergies/Adverse Reactions: Allergies No Known Allergies Allergy (Unverified 06/11/20 00:01) Active Medications: Generic Name Dose Route Start Last Admin Trade Name Freq PRN Reason Stop Dose Admin Acetaminophen 650 mg 06/11/20 02:08 Tylenol PO Q4H PRN Pain MILD(1-3)/Fever >100.5/HERRERA Sodium Chloride 1,000 mls @ 125 mls/hr 06/11/20 02:15 06/13/20 05:28 Nacl 0.9% 1000 Ml IV 125 mls/hr DIRECT ALICE Administration Piperacillin Sod/Tazobactam Sod 2.25 gm in 50 mls @ 100 mls/hr 06/11/20 06:00 06/13/20 05:29 Zosyn/Ns 2.25 Gm/50ml IV 100 mls/hr Q8HR ALICE Administration Ceftriaxone Sodium 1 gm in 50 mls @ 100 mls/hr 06/11/20 14:00 06/12/20 14:34 Rocephin/Ns 1 Gm/50 Ml IV 100 mls/hr Q24H ALICE Administration Protocol Lorazepam 4 mg 06/12/20 14:46 Ativan IV Q15MIN PRN CIWA-Ar >25 Morphine Sulfate 2 mg 06/11/20 02:08 Morphine IV Q4H PRN Pain, Moderate (4-6) Ondansetron HCl 4 mg 06/11/20 02:08 Zofran IV Q8H PRN Nausea And Vomiting Sodium Chloride 10 ml 06/11/20 10:00 06/12/20 21:43 Sodium Chloride Flush Syringe 10 Ml IV 10 ml BID ALICE Administration Sodium Chloride 10 ml 06/11/20 02:08 Sodium Chloride Flush Syringe 10 Ml IV PRN PRN LINE FLUSH
--- NOTE | 2020-06-13 14:21 | Progress Note ---
Assessment and Plan (1) Right inguinal hernia Current Visit: Yes Status: Acute Plan to address problem: Pt stable. Pt with chronic right inguinal hernia. Hernia is soft without skin changes or tenderness to palpation, and has been reduced multiple times. Patient's white count is improved as well as his blood pressure, he is off pressors. Mental status likely due to uremia/leonor. He continues to respond well to resuscitation. Plan: 1. Continue with resuscitation. 2. Adv to soft diet 3. Once he is stabilized, we will plan for operative repair of his inguinal hernia. Pt is agreeable to surgery during this admission to repair hernia. Will discuss date/time with Dr. Pleitez in am. Will follow along. Please call with questions. Subjective Date of service: 06/13/20 Narrative: Pt seen and examined. No acute complaints. Tolerating diet. NO abd or groin pain. No n/v. Having BMs and passing flatus. Objective Vital Signs - 12hr 06/13/20 06/13/20 06/13/20 05:01 08:17 08:20 Temperature 98.1 F 98.0 F 98.0 F Pulse Rate 117 H 116 H 113 H Respiratory 20 17 17 Rate Blood Pressure 111/73 107/68 Blood Pressure 107/68 [Left] O2 Sat by Pulse 96 97 97 Oximetry 06/13/20 11:11 Temperature 98.6 F Pulse Rate 109 H Respiratory 17 Rate Blood Pressure 122/72 Blood Pressure [Left] O2 Sat by Pulse 95 Oximetry - General physical appearance Narrative Exam: Gen: Awake and alert, slightly disoriented speech at times. NAD CV: S1, S2+ Resp; even and unlabored Abd: soft, NT, ND. R inguinoscrotal hernia soft without skin charges, completely reducible : boo with clear yellow urine - Labs 06/13/20 04:54 06/13/20 04:54 Diabetes panel 06/13/20 Range/Units 04:54 Sodium 138 (137-145) mmol/L Potassium 4.0 (3.6-5.0) mmol/L Chloride 103.2 (98-107) mmol/L Carbon Dioxide 20 L (22-30) mmol/L BUN 76 H (9-20) mg/dL Creatinine 4.4 H (0.8-1.3) mg/dL Glucose 112 H (75-100) mg/dL Calcium 8.3 L (8.4-10.2) mg/dL Calcium panel 06/13/20 Range/Units 04:54 Calcium 8.3 L (8.4-10.2) mg/dL Pituitary panel 06/13/20 Range/Units 04:54 Sodium 138 (137-145) mmol/L Potassium 4.0 (3.6-5.0) mmol/L Chloride 103.2 (98-107) mmol/L Carbon Dioxide 20 L (22-30) mmol/L BUN 76 H (9-20) mg/dL Creatinine 4.4 H (0.8-1.3) mg/dL Glucose 112 H (75-100) mg/dL Calcium 8.3 L (8.4-10.2) mg/dL Adrenal panel 06/13/20 Range/Units 04:54 Sodium 138 (137-145) mmol/L Potassium 4.0 (3.6-5.0) mmol/L Chloride 103.2 (98-107) mmol/L Carbon Dioxide 20 L (22-30) mmol/L BUN 76 H (9-20) mg/dL Creatinine 4.4 H (0.8-1.3) mg/dL Glucose 112 H (75-100) mg/dL Calcium 8.3 L (8.4-10.2) mg/dL
[2020-06-13] MEDS: cefTRIAXone/NS 1 GM/50 ML 1 GM/50 ML BAG IV SCH (16:14)
[2020-06-13] MEDS: FAMOTIDINE 20 MG TAB PO SCH (17:00)
[2020-06-14] MEDS: PIPERACIL-TAZO 2.25 GM/50 ML 2.25 GM/50 ML BAG IV SCH (05:06)
[2020-06-14] MEDS: SODIUM CHLORIDE 0.9% 1000 ML 1,000 ML IV SCH ×3 (06:03→22:28)
--- NOTE | 2020-06-14 09:13 | Progress Note ---
Assessment and Plan - Patient Problems (1) Right inguinal hernia Current Visit: Yes Status: Acute Plan to address problem: Pt stable. It appears that most of this incidence may have been related to severe dehydration and heat exhaustion. He seems much improved at this point. Kidney function is improving. I think he is in a better position now to tolerate surgery. He is in agreement that he would like to have the hernia repaired. Based on his current occupation, he is at high risk for complications from the hernia if it is not fixed. Therefore, I think it would be in his best interest if we fix it before discharge. We will try to get him scheduled as soon as possible. Please call with any questions. Time=10min Subjective Date of service: 06/14/20 Patient Reports: Positive: no new complaints, feels better, tolerating a regular diet, flatus, bowel movement, other (He reports that all this began when he was at work in extreme heat. He was unable to adequately hydrated to keep up with all the sweat. Then his symptoms began.) Objective Vital Signs - 12hr 06/13/20 06/13/20 06/14/20 22:00 23:15 00:07 Temperature 100.3 F H Pulse Rate 103 H Pulse Rate [ 111 H From Monitor] Respiratory 20 18 Rate Respiratory 20 Rate [Right Groin] Blood Pressure 115/73 O2 Sat by Pulse 97 100 Oximetry 06/14/20 06/14/20 06/14/20 00:12 00:20 04:13 Temperature 98.9 F Pulse Rate 92 H 100 H Pulse Rate [ From Monitor] Respiratory 18 18 Rate Respiratory Rate [Right Groin] Blood Pressure 114/75 O2 Sat by Pulse 99 Oximetry 06/14/20 07:30 Temperature 98.5 F Pulse Rate 84 Pulse Rate [ From Monitor] Respiratory 20 Rate Respiratory Rate [Right Groin] Blood Pressure 116/79 O2 Sat by Pulse 100 Oximetry - General physical appearance no distress, no pain, other (looks much better) - Respiratory normal expansion, normal respiratory effort - Abdomen soft, not tender, not guarding, not rigid, other (protuberant) - Integumentary no rash, no growths, no abnormal pigmentation - Psychiatric oriented to time, oriented to person, oriented to place, speech is normal, memory intact - Labs 06/13/20 04:54 06/13/20 04:54
--- NOTE | 2020-06-14 09:49 | Progress Note ---
Assessment and Plan Assessment and plan: Sepsis. Patient meets criteria given the leukocytosis, tachycardia and diagnosis of UTI. Continue IV antibiotics and follow-up blood and urine cultures. Continue Zosyn and consider ID consultation. Reducible inguinal hernia. Continue per surgery. Nonoliguric JULIANA. Etiology secondary to prerenal azotemia/ATN. Follow serial BMP. Intractable nausea and vomiting. Continue supportive care with IV fluid hydration and antiemetics. Toxic metabolic encephalopathy. Continue to treat underlying causes of sepsis/uremia. Lactic acidosis. Etiology likely secondary to dehydration. 06/12/2020. Creatinine has improved 7.7--> 7.3--> 5.4. Continue IV fluid hydration and monitor BMP closely. Nephrology following. Surgery feels that it is extremely unlikely to have compromised/incarcerated inguinal hernia based on exam. Hernia repair per surgery recommendations. Hypotension has improved with IV fluid hydration. 06/13/2020. Creatinine with steady improvement since admission 7.7--> 7.3--> 5.4 -->4.4. Continue IV fluid hydration and monitor BMP closely. Nephrology following. Surgery feels that it is extremely unlikely to have compromised/incarcerated inguinal hernia based on exam. Hernia repair per surgery recommendations. Hypotension has resolved with IV fluid hydration 06/14/2020. Patient has had steady improvement of creatinine since admission. Await BMP for today. CT scan did not report any evidence of renal obstruction. Patient with nonoliguric JULIANA with etiology secondary to prerenal azotemia/ATN/vasomotor nephropathy. Continue IV fluid hydration. Nephrology following. Surgery feels that it is extremely unlikely to have compromised/incarcerated inguinal hernia based on exam. Hernia repair per surgery recommendations. History Interval history: No new issues overnight Hospitalist Physical - Constitutional Vitals: Temp Pulse Resp BP Pulse Ox 98.5 F 84 20 116/79 100 06/14/20 07:30 06/14/20 07:30 06/14/20 07:30 06/14/20 07:30 06/14/20 07:30 General appearance: Present: no acute distress, well-nourished - EENT Eyes: Present: PERRL, EOM intact ENT: hearing intact, clear oral mucosa, dentition normal - Neck Neck: Present: supple, normal ROM - Respiratory Respiratory effort: normal Respiratory: bilateral: CTA - Cardiovascular Rhythm: regular Heart Sounds: Present: S1 & S2. Absent: gallop, rub - Extremities Extremities: no ischemia, No edema, Full ROM - Abdominal General gastrointestinal: soft, non-tender, non-distended, normal bowel sounds - Integumentary Integumentary: Present: clear, warm, dry - Neurologic Neurologic: CNII-XII intact, moves all extremities Results - Labs CBC & Chem 7: 06/13/20 04:54 06/13/20 04:54 Labs: Laboratory Last Values WBC 12.4 K/mm3 (4.5-11.0) H 06/13/20 04:54 RBC 3.20 M/mm3 (3.65-5.03) L 06/13/20 04:54 Hgb 9.7 gm/dl (11.8-15.2) L 06/13/20 04:54 Hct 29.8 % (35.5-45.6) L 06/13/20 04:54 MCV 93 fl (84-94) 06/13/20 04:54 MCH 30 pg (28-32) 06/13/20 04:54 MCHC 33 % (32-34) 06/13/20 04:54 RDW 14.0 % (13.2-15.2) 06/13/20 04:54 Plt Count 259 K/mm3 (140-440) 06/13/20 04:54 Lymph % (Auto) 13.5 % (13.4-35.0) 06/13/20 04:54 [place] % (Auto) 10.4 % (0.0-7.3) H 06/13/20 04:54 Eos % (Auto) 0.2 % (0.0-4.3) 06/13/20 04:54 Baso % (Auto) 0.3 % (0.0-1.8) 06/13/20 04:54 Lymph # 1.7 K/mm3 (1.2-5.4) 06/13/20 04:54 [place] # 1.3 K/mm3 (0.0-0.8) H 06/13/20 04:54 Eos # 0.0 K/mm3 (0.0-0.4) 06/13/20 04:54 Baso # 0.0 K/mm3 (0.0-0.1) 06/13/20 04:54 Add Manual Diff Complete 06/12/20 04:26 Total Counted 100 06/12/20 04:26 Seg Neutrophils % 75.6 % (40.0-70.0) H 06/13/20 04:54 Seg Neuts % (Manual) 83.0 % (40.0-70.0) H 06/12/20 04:26 Band Neutrophils % 4.0 % 06/12/20 04:26 Lymphocytes % (Manual) 10.0 % (13.4-35.0) L 06/12/20 04:26 Reactive Lymphs % (Man) 0 % 06/12/20 04:26 Monocytes % (Manual) 3.0 % (0.0-7.3) 06/12/20 04:26 Eosinophils % (Manual) 0 % (0.0-4.3) 06/12/20 04:26 Basophils % (Manual) 0 % (0.0-1.8) 06/12/20 04:26 Metamyelocytes % 0 % 06/12/20 04:26 Myelocytes % 0 % 06/12/20 04:26 Promyelocytes % 0 % 06/12/20 04:26 Blast Cells % 0 % 06/12/20 04:26 Nucleated RBC % Not Reportable 06/12/20 04:26 Seg Neutrophils # 9.3 K/mm3 (1.8-7.7) H 06/13/20 04:54 Seg Neutrophils # Man 9.9 K/mm3 (1.8-7.7) H 06/12/20 04:26 Band Neutrophils # 0.5 K/mm3 06/12/20 04:26 Lymphocytes # (Manual) 1.2 K/mm3 (1.2-5.4) 06/12/20 04:26 Abs React Lymphs (Man) 0.0 K/mm3 06/12/20 04:26 Monocytes # (Manual) 0.4 K/mm3 (0.0-0.8) 06/12/20 04:26 Eosinophils # (Manual) 0.0 K/mm3 (0.0-0.4) 06/12/20 04:26 Basophils # (Manual) 0.0 K/mm3 (0.0-0.1) 06/12/20 04:26 Metamyelocytes # 0.0 K/mm3 06/12/20 04:26 Myelocytes # 0.0 K/mm3 06/12/20 04:26 Promyelocytes # 0.0 K/mm3 06/12/20 04:26 Blast Cells # 0.0 K/mm3 06/12/20 04:26 WBC Morphology Not Reportable 06/12/20 04:26 Hypersegmented Neuts Not Reportable 06/12/20 04:26 Hyposegmented Neuts Not Reportable 06/12/20 04:26 Hypogranular Neuts Not Reportable 06/12/20 04:26 Smudge Cells Not Reportable 06/12/20 04:26 Toxic Granulation Not Reportable 06/12/20 04:26 Toxic Vacuolation Not Reportable 06/12/20 04:26 Dohle Bodies Not Reportable 06/12/20 04:26 Pelger-Huet Anomaly Not Reportable 06/12/20 04:26 Lynette Rods Not Reportable 06/12/20 04:26 Platelet Estimate Consistent w auto 06/12/20 04:26 Clumped Platelets Not Reportable 06/12/20 04:26 Plt Clumps, EDTA Not Reportable 06/12/20 04:26 Large Platelets Not Reportable 06/12/20 04:26 Giant Platelets Not Reportable 06/12/20 04:26 Platelet Satelliting Not Reportable 06/12/20 04:26 Plt Morphology Comment Not Reportable 06/12/20 04:26 RBC Morphology Not Reportable 06/12/20 04:26 Dimorphic RBCs Not Reportable 06/12/20 04:26 Polychromasia Not Reportable 06/12/20 04:26 Hypochromasia Not Reportable 06/12/20 04:26 Poikilocytosis Not Reportable 06/12/20 04:26 Anisocytosis 1+ 06/12/20 04:26 Microcytosis Not Reportable 06/12/20 04:26 Macrocytosis Not Reportable 06/12/20 04:26 Spherocytes Not Reportable 06/12/20 04:26 Pappenheimer Bodies Not Reportable 06/12/20 04:26 Sickle Cells Not Reportable 06/12/20 04:26 Target Cells Not Reportable 06/12/20 04:26 Tear Drop Cells Not Reportable 06/12/20 04:26 Ovalocytes Not Reportable 06/12/20 04:26 Helmet Cells Not Reportable 06/12/20 04:26 Jung-Biloxi Bodies Not Reportable 06/12/20 04:26 [place] Rings Not Reportable 06/12/20 04:26 Coty Cells Not Reportable 06/12/20 04:26 Bite Cells Not Reportable 06/12/20 04:26 Crenated Cell Not Reportable 06/12/20 04:26 Elliptocytes Not Reportable 06/12/20 04:26 Acanthocytes (Spur) Not Reportable 06/12/20 04:26 Rouleaux Not Reportable 06/12/20 04:26 Hemoglobin C Crystals Not Reportable 06/12/20 04:26 Schistocytes Not Reportable 06/12/20 04:26 Malaria parasites Not Reportable 06/12/20 04:26 Kee Bodies Not Reportable 06/12/20 04:26 Hem Pathologist Commnt No 06/12/20 04:26 PT 14.7 Sec. (12.2-14.9) 06/12/20 04:26 INR 1.13 (0.87-1.13) 06/12/20 04:26 Sodium 138 mmol/L (137-145) 06/13/20 04:54 Potassium 4.0 mmol/L (3.6-5.0) 06/13/20 04:54 Chloride 103.2 mmol/L (98-107) 06/13/20 04:54 Carbon Dioxide 20 mmol/L (22-30) L 06/13/20 04:54 Anion Gap 19 mmol/L 06/13/20 04:54 BUN 76 mg/dL (9-20) H 06/13/20 04:54 Creatinine 4.4 mg/dL (0.8-1.3) H 06/13/20 04:54 Estimated GFR 14 ml/min 06/13/20 04:54 BUN/Creatinine Ratio 17 % 06/13/20 04:54 Glucose 112 mg/dL (75-100) H 06/13/20 04:54 Lactic Acid 1.20 mmol/L (0.7-2.0) 06/11/20 05:40 Calcium 8.3 mg/dL (8.4-10.2) L 06/13/20 04:54 Total Bilirubin 0.50 mg/dL (0.1-1.2) 06/10/20 22:39 Direct Bilirubin < 0.2 mg/dL (0-0.2) 06/10/20 22:39 Indirect Bilirubin 0.3 mg/dL 06/10/20 22:39 AST 50 units/L (5-40) H 06/10/20 22:39 ALT 31 units/L (7-56) 06/10/20 22:39 Alkaline Phosphatase 115 units/L (35-129) 06/10/20 22:39 Total Protein 8.8 g/dL (6.3-8.2) H 06/10/20 22:39 Albumin 4.9 g/dL (3.9-5) 06/10/20 22:39 Albumin/Globulin Ratio 1.3 % 06/10/20 22:39 Amylase 127 units/L (27-131) 06/10/20 22:39 Lipase 24 units/L (13-60) 06/10/20 22:39 Urine Color Yellow (Yellow) 06/10/20 Unknown Urine Turbidity Cloudy (Clear) 06/10/20 Unknown Urine pH 5.0 (5.0-7.0) 06/10/20 Unknown Ur Specific [place] 1.013 (1.003-1.030) 06/10/20 Unknown Urine Protein >500 mg/dL (Negative) 06/10/20 Unknown Urine Glucose (UA) 150 mg/dL (Negative) 06/10/20 Unknown Urine Ketones Neg mg/dL (Negative) 06/10/20 Unknown Urine Blood Lg (Negative) 06/10/20 Unknown Urine Nitrite Neg (Negative) 06/10/20 Unknown Urine Bilirubin Neg (Negative) 06/10/20 Unknown Urine Urobilinogen < 2.0 mg/dL (<2.0) 06/10/20 Unknown Ur Leukocyte Esterase Neg (Negative) 06/10/20 Unknown Urine WBC (Auto) 19.0 /HPF (0.0-6.0) H 06/10/20 Unknown Urine RBC (Auto) 6.0 /HPF (0.0-6.0) 06/10/20 Unknown U Epithel Cells (Auto) 1.0 /HPF (0-13.0) 06/10/20 Unknown Urine Bacteria (Auto) 1+ /HPF (Negative) 06/10/20 Unknown Amorphous Crystals 1+ 06/10/20 Unknown Urine Mucus 1+ /HPF 06/10/20 Unknown Urine Sperm Few /HPF ([employer] 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[employer]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) 06/10/20 Unknown Coronavirus (PCR) Negative (Negative) 06/11/20 08:47 Microbiology: Microbiology 06/11/20 00:35 Peripheral/Venous Blood Culture - Preliminary NO GROWTH AFTER 72 HOURS 06/11/20 00:45 Peripheral/Venous Blood Culture - Preliminary NO GROWTH AFTER 72 HOURS 06/10/20 Unknown Urine,Clean Catch Urine Culture - Final NO GROWTH AFTER 48 HOURS José/IV: Voiding Method Indwelling Catheter IV Catheter Type [Left Hand] Peripheral IV IV Catheter Type [Left Peripheral IV Antecubital] IV Catheter Type [Right Peripheral IV Antecubital] Active Medications - Current Medications Current Medications: Generic Name Dose Route Start Last Admin Trade Name Freq PRN Reason Stop Dose Admin Acetaminophen 650 mg 06/11/20 02:08 06/14/20 00:20 Tylenol PO 650 mg Q4H PRN Administration Pain MILD(1-3)/Fever >100.5/HERRERA Famotidine 20 mg 06/13/20 15:00 06/13/20 17:00 Pepcid PO 20 mg QDAY ALICE Administration Sodium Chloride 1,000 mls @ 125 mls/hr 06/11/20 02:15 06/14/20 06:03 Nacl 0.9% 1000 Ml IV 125 mls/hr DIRECT ALICE Administration Ceftriaxone Sodium 1 gm in 50 mls @ 100 mls/hr 06/11/20 14:00 06/13/20 16:14 Rocephin/Ns 1 Gm/50 Ml IV 100 mls/hr Q24H ALICE Administration Protocol Lorazepam 4 mg 06/12/20 14:46 Ativan IV Q15MIN PRN CIWA-Ar >25 Morphine Sulfate 2 mg 06/11/20 02:08 Morphine IV Q4H PRN Pain, Moderate (4-6) Ondansetron HCl 4 mg 06/11/20 02:08 Zofran IV Q8H PRN Nausea And Vomiting Sodium Chloride 10 ml 06/11/20 10:00 06/13/20 21:30 Sodium Chloride Flush Syringe 10 Ml IV 10 ml BID ALICE Administration Sodium Chloride 10 ml 06/11/20 02:08 Sodium Chloride Flush Syringe 10 Ml IV PRN PRN LINE FLUSH
[2020-06-14] MEDS: FAMOTIDINE 20 MG TAB PO SCH (10:32)
[2020-06-14] MEDS: cefTRIAXone/NS 1 GM/50 ML 1 GM/50 ML BAG IV SCH (13:14)
--- NOTE | 2020-06-14 13:28 | Progress Note ---
Assessment and Plan Patient alert, awake. Resting on room air. O2 saturation 97%. No complaint of chest pain, shortness of breath and cough. Patient scheduled for surgery to repair of right sided incarcerated inguinal hernia this . Patient has history of smoking 1 pack x 3 days for 20 years. Counselled to stop smoking. Denies alcohol or drug abuse. 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 No known drug allergies. - Patient Problems (1) Sepsis Current Visit: Yes Status: Acute Plan to address problem: Patient is on ceftriaxone. (2) Acute renal failure Current Visit: Yes Status: Acute Plan to address problem: Management as per nephrology. (3) Incarcerated right inguinal hernia Current Visit: Yes Status: Acute Plan to address problem: Patent tentatively scheduled this for surgery to repair incarcerated right inguinal Hernia. Recommend incentive spirometry. Bedside spirometry. Subjective Date of service: 06/14/20 Interval history: Patient alert, awake. Resting on room air. O2 saturation 97%. No complaint of chest pain, shortness of breath and cough. Patient scheduled for surgery to repair of right sided incarcerated inguinal hernia this . Patient has history of smoking 1 pack x 3 days for 20 years. Counselled to stop smoking. Denies alcohol or drug abuse. 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 No known drug allergies. Objective Vital Signs - 12hr 06/14/20 06/14/20 06/14/20 04:13 07:30 10:00 Temperature 98.9 F 98.5 F Pulse Rate 100 H 84 82 Pulse Rate [ From Monitor] Respiratory 18 20 Rate Respiratory 20 Rate [Right Groin] Blood Pressure 114/75 116/79 O2 Sat by Pulse 99 100 Oximetry 06/14/20 06/14/20 11:23 11:24 Temperature 99.2 F Pulse Rate 94 H Pulse Rate [ 100 H From Monitor] Respiratory 20 19 Rate Respiratory Rate [Right Groin] Blood Pressure 122/78 O2 Sat by Pulse 98 98 Oximetry Constitutional: no acute distress, alert Eyes: non-icteric ENT: oropharynx moist Neck: supple, no lymphadenopathy Ascultation: Bilateral: clear Cardiovascular: regular rate and rhythm Gastrointestinal: tender, other (Incarcerated right inguinal hernia.) Integumentary: normal Extremities: no cyanosis, no edema Neurologic: normal mental status, non-focal exam, pupils equal and round, CN II- XII normal Psychiatric: mood appropriate CBC and BMP: 06/13/20 04:54 06/14/20 13:02 ABG, PT/INR, D-dimer: PT/INR, D-dimer PT 14.7 Sec. (12.2-14.9) 06/12/20 04:26 INR 1.13 (0.87-1.13) 06/12/20 04:26 Abnormal lab findings: Abnormal Labs 06/10/20 06/10/20 06/10/20 22:39 22:39 Unknown WBC 21.0 H RBC Hgb Hct Plt Count 505 H Mccre[place] % (Auto) M[place]re[place] # Seg Neutrophils % Seg Neuts % (Manual) 84.0 H Lymphocytes % (Manual) 6.0 L Monocytes % (Manual) 8.0 H Seg Neutrophils # Seg Neutrophils # Man 17.6 H Monocytes # (Manual) 1.7 H Chloride 80.1 L Carbon Dioxide BUN 58 H Creatinine 7.7 H Glucose 147 H Lactic Acid Calcium AST 50 H Total Protein 8.8 H Urine WBC (Auto) 19.0 H 06/11/20 06/11/20 06/12/20 00:45 10:48 04:26 WBC 11.9 H RBC 3.53 L Hgb 11.3 L D Hct 32.7 L D Plt Count [place] % (Auto) M[place]re[place] # Seg Neutrophils % Seg Neuts % (Manual) 83.0 H Lymphocytes % (Manual) 10.0 L Monocytes % (Manual) Seg Neutrophils # Seg Neutrophils # Man 9.9 H Monocytes # (Manual) Chloride 97.6 L Carbon Dioxide 19 L BUN 69 H Creatinine 7.3 H Glucose 148 H Lactic Acid 4.90 H* Calcium 7.1 L D AST Total Protein Urine WBC (Auto) 06/12/20 06/13/20 06/13/20 04:26 04:54 04:54 WBC 12.4 H RBC 3.20 L Hgb 9.7 L Hct 29.8 L Plt Count [place] % (Auto) 10.4 H M[place] # 1.3 H Seg Neutrophils % 75.6 H Seg Neuts % (Manual) Lymphocytes % (Manual) Monocytes % (Manual) Seg Neutrophils # 9.3 H Seg Neutrophils # Man Monocytes # (Manual) Chloride Carbon Dioxide 18 L 20 L BUN 75 H 76 H Creatinine 5.4 H 4.4 H Glucose 154 H 112 H Lactic Acid Calcium 7.9 L 8.3 L AST Total Protein Urine WBC (Auto) Chest x-ray: report reviewed, image reviewed Additional Studies: CHEST 1 VIEW 06/11/20 INDICATION / CLINICAL INFORMATION: sepsis. COMPARISON: None available. FINDINGS: SUPPORT DEVICES: None. HEART / MEDIASTINUM: No significant abnormality. LUNGS / PLEURA: No significant pulmonary or pleural abnormality. No pneumothora x. ADDITIONAL FINDINGS: No significant additional findings. IMPRESSION: 1. No acute findings.
--- NOTE | 2020-06-14 13:56 | Progress Note ---
Assessment and Plan Impression: * Nonoliguric JULIANA secondary to prerenal azotemia/hypovolemia vs sepsis vs ATN * metabolic acidosis * Anemia * hypocalcemia * Sepsis, cultures negative. * Intractable nausea/vomiting, symptoms not controlled. * Inguinal/scrotal hernia, large. Surgery is following. * Altered mental status - secondary to multifactorial etiologies, sepsis vs ?alcohol withdrawal. Now responding appropriately. * Lactic acidosis - resolved w/ resuscitation Plan: * No acute indication for renal replacement - renal function is improving * Continue IVF for fluid resuscitation * check ABG * Check tox screen * Check alcohol level * check ionized calcium * Start sodium bicarb tabs 650 mg 3 times a day * Check iron studies * Abx per primary team * Surgery following * Monitor lytes and volume status closely * Strict I/O * Avoid potential nephrotoxins * renally dose medications * AM labs ordered * DT prophylaxis/CIWA protocol Subjective Date of service: 06/14/20 Principal diagnosis: JULIANA Interval history: Sleeping on visit. Appeared comfortable. Good urine output with José bag full.. Objective - Exam Narrative Exam: General appearance: well-developed, well-nourished EENT: ATNC Respiratory: Present: Clear to Ascultation Cardiology: regular, S1S2 Gastrointestinal: normal, no tenderness, no distended Integumentary: warm and dry Psychiatric: other (sleeping, appears comfortable) - Vital Signs Vital signs: Vital Signs - 12hr 06/14/20 06/14/20 06/14/20 04:13 07:30 10:00 Temperature 98.9 F 98.5 F Pulse Rate 100 H 84 82 Pulse Rate [ From Monitor] Respiratory 18 20 Rate Respiratory 20 Rate [Right Groin] Blood Pressure 114/75 116/79 O2 Sat by Pulse 99 100 Oximetry 06/14/20 06/14/20 11:23 11:24 Temperature 99.2 F Pulse Rate 94 H Pulse Rate [ 100 H From Monitor] Respiratory 20 19 Rate Respiratory Rate [Right Groin] Blood Pressure 122/78 O2 Sat by Pulse 98 98 Oximetry - Lab 06/13/20 04:54 06/13/20 04:54 Most recent lab results Calcium 8.3 mg/dL (8.4-10.2) L 06/13/20 04:54 Medications & Allergies - Medications Allergies/Adverse Reactions: Allergies No Known Allergies Allergy (Unverified 06/11/20 00:01) Active Medications: Generic Name Dose Route Start Last Admin Trade Name Freq PRN Reason Stop Dose Admin Acetaminophen 650 mg 06/11/20 02:08 06/14/20 00:20 Tylenol PO 650 mg Q4H PRN Administration Pain MILD(1-3)/Fever >100.5/HERRERA Famotidine 20 mg 06/13/20 15:00 06/14/20 10:32 Pepcid PO 20 mg QDAY ALICE Administration Sodium Chloride 1,000 mls @ 125 mls/hr 06/11/20 02:15 06/14/20 13:14 Nacl 0.9% 1000 Ml IV 125 mls/hr DIRECT ALICE Administration Ceftriaxone Sodium 1 gm in 50 mls @ 100 mls/hr 06/11/20 14:00 06/14/20 13:14 Rocephin/Ns 1 Gm/50 Ml IV 100 mls/hr Q24H ALICE Administration Protocol Lorazepam 4 mg 06/12/20 14:46 Ativan IV Q15MIN PRN CIWA-Ar >25 Morphine Sulfate 2 mg 06/11/20 02:08 Morphine IV Q4H PRN Pain, Moderate (4-6) Ondansetron HCl 4 mg 06/11/20 02:08 Zofran IV Q8H PRN Nausea And Vomiting Sodium Chloride 10 ml 06/11/20 10:00 06/14/20 10:32 Sodium Chloride Flush Syringe 10 Ml IV 10 ml BID ALICE Administration Sodium Chloride 10 ml 06/11/20 02:08 Sodium Chloride Flush Syringe 10 Ml IV PRN PRN LINE FLUSH
[2020-06-14 14:17] LABS: Calcium 8.1 mg/dL (8.4-10.2)
--- NOTE | 2020-06-14 14:38 | Event Note ---
Date: 06/14/20 Surgery tentatively scheduled for this (06/17)
[2020-06-14 15:27] LABS: Amphetamine Screen,Urine PRESUMPTIVE NEGATIVE; Benzodiazepines Screen,Urine PRESUMPTIVE NEGATIVE; Cannabinoid Screen,Urine PRESUMPTIVE NEGATIVE; Cocaine Screen,Urine PRESUMPTIVE NEGATIVE; Methadone Screen,Urine PRESUMPTIVE NEGATIVE; Opiate Screen,Urine PRESUMPTIVE NEGATIVE
[2020-06-14 15:55] LABS: ABG Base Excess -0.4 mmol/L (-2.0-3.0); ABG HCO3 23.8 mmol/L (20.0-26.0); ABG Methemoglobin 0.5 % (0.0-1.5); ABG Oxygen Saturation 98.1 % (95.0-99.0); ABG PCO2 36.7 mm Hg; ABG PH 7.429 pH Units (7.350-7.450); ABG PO2 111.6 mm Hg (80.0-90.0)
[2020-06-14 18:46] LABS: Iron 38 ug/dL (49-181); Total Iron Binding Capacity 229 mcg/dL (250-450)
[2020-06-14] MEDS: SODIUM BICARBONATE 650 MG TAB PO SCH (21:34)
[2020-06-15 06:15] LABS: Basophils % (Auto) 0.5 % (0.0-1.8); Eosinophils # (Auto) 0.2 K/mm3 (0.0-0.4); Eosinophils % (Auto) 1.6 % (0.0-4.3); Hematocrit 26.2 % (35.5-45.6); Hemoglobin 8.9 gm/dl (11.8-15.2); Lymphocytes % (Auto) 20.1 % (13.4-35.0); Mean Corpuscular HGB Conc 34 % (32-34); Mean Corpuscular Volume 93 fl (84-94); Monocytes # (Auto) 0.9 K/mm3 (0.0-0.8); Monocytes % (Auto) 9.1 % (0.0-7.3); Platelet Count 267 K/mm3 (140-440); Red Blood Count 2.82 M/mm3 (3.65-5.03); Red Cell Distribution Width 13.7 % (13.2-15.2)
[2020-06-15] MEDS: SODIUM CHLORIDE 0.9% 1000 ML 1,000 ML IV SCH ×2 (07:16→14:56)
--- NOTE | 2020-06-15 08:49 | Progress Note ---
Assessment and Plan - Patient Problems (1) Right inguinal hernia Current Visit: Yes Status: Acute Plan to address problem: Pt stable. He continues to show improvement in his overall health and kidney function. He is tentatively scheduled for surgery on . Procedure, risk, benefits were discussed. All questions were answered. Consent was o btained. Please call with any questions. Time=10min Subjective Date of service: 06/15/20 Patient Reports: Positive: no new complaints, feels better, tolerating a regular diet, bowel movement. Negative: nausea, vomiting Objective Vital Signs - 12hr 06/14/20 06/14/20 06/14/20 23:36 23:42 23:49 Temperature 98.0 F Pulse Rate 86 91 H Pulse Rate [ 89 From Monitor] Respiratory 18 20 Rate Blood Pressure Blood Pressure 124/75 [Left] O2 Sat by Pulse 100 97 Oximetry 06/15/20 04:34 Temperature 98.4 F Pulse Rate 90 Pulse Rate [ From Monitor] Respiratory 18 Rate Blood Pressure 135/83 Blood Pressure [Left] O2 Sat by Pulse 98 Oximetry - General physical appearance no distress, no pain, obese - Respiratory normal expansion, normal respiratory effort - Abdomen soft, not tender, not rebound, not guarding Hernia: inguinal, scrotal - Psychiatric oriented to time, oriented to person, oriented to place, speech is normal, memory intact - Labs 06/15/20 05:17 06/15/20 05:17 Diabetes panel 06/14/20 06/15/20 Range/Units 13:02 05:17 Sodium 142 140 (137-145) mmol/L Potassium 3.8 3.4 L (3.6-5.0) mmol/L Chloride 106.4 104.1 (98-107) mmol/L Carbon Dioxide 20 L 23 (22-30) mmol/L BUN 40 H 30 H (9-20) mg/dL Creatinine 2.3 H 1.6 H (0.8-1.3) mg/dL Glucose 97 100 (75-100) mg/dL Calcium 8.1 L 8.0 L (8.4-10.2) mg/dL Calcium panel 06/14/20 06/15/20 Range/Units 13:02 05:17 Calcium 8.1 L 8.0 L (8.4-10.2) mg/dL Pituitary panel 06/14/20 06/15/20 Range/Units 13:02 05:17 Sodium 142 140 (137-145) mmol/L Potassium 3.8 3.4 L (3.6-5.0) mmol/L Chloride 106.4 104.1 (98-107) mmol/L Carbon Dioxide 20 L 23 (22-30) mmol/L BUN 40 H 30 H (9-20) mg/dL Creatinine 2.3 H 1.6 H (0.8-1.3) mg/dL Glucose 97 100 (75-100) mg/dL Calcium 8.1 L 8.0 L (8.4-10.2) mg/dL Adrenal panel 06/14/20 06/15/20 Range/Units 13:02 05:17 Sodium 142 140 (137-145) mmol/L Potassium 3.8 3.4 L (3.6-5.0) mmol/L Chloride 106.4 104.1 (98-107) mmol/L Carbon Dioxide 20 L 23 (22-30) mmol/L BUN 40 H 30 H (9-20) mg/dL Creatinine 2.3 H 1.6 H (0.8-1.3) mg/dL Glucose 97 100 (75-100) mg/dL Calcium 8.1 L 8.0 L (8.4-10.2) mg/dL
[2020-06-15] MEDS: FAMOTIDINE 20 MG TAB PO SCH (09:28)
[2020-06-15] MEDS: SODIUM BICARBONATE 650 MG TAB PO SCH ×3 (09:28→21:35)
--- NOTE | 2020-06-15 10:13 | Progress Note ---
Assessment and Plan Patient Sleeping on room air. O2 saturation 97%. No acute respiratory distress.. Patient scheduled for surgery to repair of right sided incarcerated inguinal hernia this . Patient has history of smoking 1 pack x 3 days for 20 years. Counselled to stop smoking. Denies alcohol or drug abuse. 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 No known drug allergies. Ordered incentive spirometry and bed side PFTs. - Patient Problems (1) Sepsis Current Visit: Yes Status: Acute Plan to address problem: Patient is on ceftriaxone. (2) Acute renal failure Current Visit: Yes Status: Acute Plan to address problem: Management as per nephrology. (3) Incarcerated right inguinal hernia Current Visit: Yes Status: Acute Plan to address problem: Patent tentatively scheduled this for surgery to repair incarcerated right inguinal Hernia. Recommend incentive spirometry. Bedside spirometry. Subjective Date of service: 06/15/20 Principal diagnosis: JULIANA Interval history: Patient Sleeping on room air. O2 saturation 97%. No acute respiratory distress.. Patient scheduled for surgery to repair of right sided incarcerated inguinal hernia this . Patient has history of smoking 1 pack x 3 days for 20 years. Counselled to stop smoking. Denies alcohol or drug abuse. 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 No known drug allergies. Ordered incentive spirometry and bed side PFTs. Objective Vital Signs - 12hr 06/14/20 06/14/20 06/14/20 23:36 23:42 23:49 Temperature 98.0 F Pulse Rate 86 91 H Pulse Rate [ 89 From Monitor] Respiratory 18 20 Rate Blood Pressure Blood Pressure 124/75 [Left] O2 Sat by Pulse 100 97 Oximetry 06/15/20 04:34 Temperature 98.4 F Pulse Rate 90 Pulse Rate [ From Monitor] Respiratory 18 Rate Blood Pressure 135/83 Blood Pressure [Left] O2 Sat by Pulse 98 Oximetry Constitutional: no acute distress, asleep Eyes: non-icteric ENT: oropharynx moist Neck: supple, no lymphadenopathy Ascultation: Bilateral: clear Cardiovascular: regular rate and rhythm Gastrointestinal: tender, other (Incarcerated right inguinal hernia.) Integumentary: normal Extremities: no cyanosis, no edema Neurologic: normal mental status, non-focal exam, pupils equal and round, CN II- XII normal Psychiatric: mood appropriate CBC and BMP: 06/15/20 05:17 06/15/20 05:17 ABG, PT/INR, D-dimer: ABG ABG pH 7.429 pH Units (7.350-7.450) 06/14/20 15:45 ABG pCO2 36.7 mm Hg 06/14/20 15:45 ABG pO2 111.6 mm Hg (80.0-90.0) H 06/14/20 15:45 ABG O2 Saturation 98.1 % (95.0-99.0) 06/14/20 15:45 PT/INR, D-dimer PT 14.7 Sec. (12.2-14.9) 06/12/20 04:26 INR 1.13 (0.87-1.13) 06/12/20 04:26 Abnormal lab findings: Abnormal Labs 06/10/20 06/10/20 06/10/20 22:39 22:39 Unknown WBC 21.0 H RBC Hgb Hct Plt Count 505 H [place] % (Auto) [place] # Seg Neutrophils % Seg Neuts % (Manual) 84.0 H Lymphocytes % (Manual) 6.0 L Monocytes % (Manual) 8.0 H Seg Neutrophils # Seg Neutrophils # Man 17.6 H Monocytes # (Manual) 1.7 H ABG pO2 ABG Hemoglobin Potassium Chloride 80.1 L Carbon Dioxide BUN 58 H Creatinine 7.7 H Glucose 147 H Lactic Acid Calcium Iron TIBC AST 50 H Total Protein 8.8 H Urine WBC (Auto) 19.0 H 06/11/20 06/11/20 06/12/20 00:45 10:48 04:26 WBC 11.9 H RBC 3.53 L Hgb 11.3 L D Hct 32.7 L D Plt Count [place] % (Auto) [place] # Seg Neutrophils % Seg Neuts % (Manual) 83.0 H Lymphocytes % (Manual) 10.0 L Monocytes % (Manual) Seg Neutrophils # Seg Neutrophils # Man 9.9 H Monocytes # (Manual) ABG pO2 ABG Hemoglobin Potassium Chloride 97.6 L Carbon Dioxide 19 L BUN 69 H Creatinine 7.3 H Glucose 148 H Lactic Acid 4.90 H* Calcium 7.1 L D Iron TIBC AST Total Protein Urine WBC (Auto) 06/12/20 06/13/20 06/13/20 04:26 04:54 04:54 WBC 12.4 H RBC 3.20 L Hgb 9.7 L Hct 29.8 L Plt Count [place] % (Auto) 10.4 H [place]son # 1.3 H Seg Neutrophils % 75.6 H Seg Neuts % (Manual) Lymphocytes % (Manual) Monocytes % (Manual) Seg Neutrophils # 9.3 H Seg Neutrophils # Man Monocytes # (Manual) ABG pO2 ABG Hemoglobin Potassium Chloride Carbon Dioxide 18 L 20 L BUN 75 H 76 H Creatinine 5.4 H 4.4 H Glucose 154 H 112 H Lactic Acid Calcium 7.9 L 8.3 L Iron TIBC AST Total Protein Urine WBC (Auto) 06/14/20 06/14/20 06/14/20 13:02 15:45 17:05 WBC RBC Hgb Hct Plt Count [place] % (Auto) [place] # Seg Neutrophils % Seg Neuts % (Manual) Lymphocytes % (Manual) Monocytes % (Manual) Seg Neutrophils # Seg Neutrophils # Man Monocytes # (Manual) ABG pO2 111.6 H ABG Hemoglobin 9.1 L Potassium Chloride Carbon Dioxide 20 L BUN 40 H Creatinine 2.3 H Glucose Lactic Acid Calcium 8.1 L Iron 38 L TIBC 229 L AST Total Protein Urine WBC (Auto) 06/15/20 06/15/20 05:17 05:17 WBC RBC 2.82 L Hgb 8.9 L Hct 26.2 L Plt Count [place] % (Auto) 9.1 H Anson # 0.9 H Seg Neutrophils % Seg Neuts % (Manual) Lymphocytes % (Manual) Monocytes % (Manual) Seg Neutrophils # Seg Neutrophils # Man Monocytes # (Manual) ABG pO2 ABG Hemoglobin Potassium 3.4 L Chloride Carbon Dioxide BUN 30 H Creatinine 1.6 H Glucose Lactic Acid Calcium 8.0 L Iron TIBC AST Total Protein Urine WBC (Auto)
--- NOTE | 2020-06-15 13:37 | Progress Note ---
Subjective Date of service: 06/15/20 Principal diagnosis: JULIANA Interval history: Sepsis. Patient meets criteria given the leukocytosis, tachycardia and diagnosis of UTI. Urine and blood cultures showed no growth Continue empiric ceftriaxone Leukocytosis Improved Incarcerated right inguinal scrotal hernia Apparently the hernia until recently was reducible Scheduled for surgery on 06/17 General surgery note reviewed and appreciated Nonoliguric JULIANA. Etiology secondary to prerenal azotemia/ATN. Significantly improved BUN/creatinine close to normal today Intractable nausea and vomiting. Improved Patient is tolerating diet well Toxic metabolic encephalopathy. Secondary to severe dehydration and sepsis Resolved Normocytic anemia H&H fair Hypokalemia Mild Serum potassium 3.4 Potassium supplemented Monitor electrolytes Lactic acidosis. Improved Mr. Atkinson is a 45 years old male with no significant past medical history however he does not follow-up with any primary care physician who presented to the ED complaining of right scrotal swelling. 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 He reports intractable nausea/vomiting w/ poor po intake. Hernia was reducible until recently. 06/12/2020. Creatinine has improved 7.7--> 7.3--> 5.4. Continue IV fluid hydration and monitor BMP closely. Nephrology following. Surgery feels that it is extremely unlikely to have compromised/incarcerated inguinal hernia based on exam. Hernia repair per surgery recommendations. Hypotension has improved with IV fluid hydration. 06/13/2020. Creatinine with steady improvement since admission 7.7--> 7.3--> 5.4 -->4.4. Continue IV fluid hydration and monitor BMP closely. Nephrology following. Surgery feels that it is extremely unlikely to have compromised/incarcerated inguinal hernia based on exam. Hernia repair per surgery recommendations. Hypotension has resolved with IV fluid hydration 06/14/2020. Patient has had steady improvement of creatinine since admission. Await BMP for today. CT scan did not report any evidence of renal obstruction. Patient with nonoliguric JULIANA with etiology secondary to prerenal azotemia/ATN/vasomotor nephropathy. Continue IV fluid hydration. Nephrology following. Surgery feels that it is extremely unlikely to have compromised/incarcerated inguinal hernia based on exam. Hernia repair per shree regina recommendations. 06/15 patient is alert and oriented and not in any distress and offers no sp ecific complaints. Tolerating diet well Lab results reviewed General surgery and pulmonary notes reviewed Scheduled for surgery right inguinal scrotal hernia on 06/17 Objective - Constitutional Vitals: Vital Signs - 12hr 06/15/20 06/15/20 06/15/20 04:34 07:44 10:00 Temperature 98.4 F 98.0 F Pulse Rate 90 98 H 99 H Pulse Rate [ Left Dorsalis Pedis] Pulse Rate [ Left Posterior Tibial] Pulse Rate [ Left Radial] Pulse Rate [ Right Dorsalis Pedis] Pulse Rate [ Right Posterior Tibial] Pulse Rate [ Right Radial] Respiratory 18 20 Rate Blood Pressure 135/83 125/79 O2 Sat by Pulse 98 96 Oximetry 06/15/20 06/15/20 11:20 11:38 Temperature 98.0 F Pulse Rate 99 H Pulse Rate [ 90 Left Dorsalis Pedis] Pulse Rate [ 90 Left Posterior Tibial] Pulse Rate [ 90 Left Radial] Pulse Rate [ 90 Right Dorsalis Pedis] Pulse Rate [ 90 Right Posterior Tibial] Pulse Rate [ 90 Right Radial] Respiratory 19 20 Rate Blood Pressure 132/81 O2 Sat by Pulse 97 96 Oximetry General appearance: Present: no acute distress, well-nourished - EENT Eyes: PERRL, EOM intact ENT: hearing intact, clear oral mucosa - Neck Neck: supple, normal ROM, no masses or JVD - Respiratory Respiratory effort: normal Respiratory: bilateral: CTA - Cardiovascular Rhythm: regular Heart Sounds: Present: S1 & S2 Extremities: No edema - Gastrointestinal General gastrointestinal: Present: soft, non-tender Rectal Exam: deferred - Genitourinary Male genitourinary: right inguinal hernia (Large reducible right inguinal scrotal hernia) - Integumentary Integumentary: clear - Musculoskeletal Musculoskeletal: strength equal bilaterally - Neurologic Neurologic: no focal deficits - Psychiatric Psychiatric: appropriate mood/affect - Labs CBC & Chem 7: 06/15/20 05:17 06/15/20 05:17 Labs: Abnormal lab results 06/14/20 06/14/20 06/14/20 Range/Units 13:02 15:45 17:05 RBC (3.65-5.03) M/mm3 Hgb (11.8-15.2) gm/dl Hct (35.5-45.6) % [place] % (Auto) (0.0-7.3) % [place] # (0.0-0.8) K/mm3 ABG pO2 111.6 H (80.0-90.0) mm Hg ABG Hemoglobin 9.1 L (14.0-18.0) gm/dl Potassium (3.6-5.0) mmol/L Carbon Dioxide 20 L (22-30) mmol/L BUN 40 H (9-20) mg/dL Creatinine 2.3 H (0.8-1.3) mg/dL Calcium 8.1 L (8.4-10.2) mg/dL Iron 38 L (49-181) ug/dL TIBC 229 L (250-450) mcg/dL 06/15/20 06/15/20 Range/Units 05:17 05:17 RBC 2.82 L (3.65-5.03) M/mm3 Hgb 8.9 L (11.8-15.2) gm/dl Hct 26.2 L (35.5-45.6) % [place] % (Auto) 9.1 H (0.0-7.3) % [place] # 0.9 H (0.0-0.8) K/mm3 ABG pO2 (80.0-90.0) mm Hg ABG Hemoglobin (14.0-18.0) gm/dl Potassium 3.4 L (3.6-5.0) mmol/L Carbon Dioxide (22-30) mmol/L BUN 30 H (9-20) mg/dL Creatinine 1.6 H (0.8-1.3) mg/dL Calcium 8.0 L (8.4-10.2) mg/dL Iron (49-181) ug/dL TIBC (250-450) mcg/dL
[2020-06-15] MEDS: PIPERACIL-TAZO 2.25 GM/50 ML 2.25 GM/50 ML BAG IV SCH (14:04)
[2020-06-15] MEDS: cefTRIAXone/NS 1 GM/50 ML 1 GM/50 ML BAG IV SCH (14:52)
--- NOTE | 2020-06-15 19:52 | Progress Note ---
Assessment and Plan Impression: * Nonoliguric JULIANA secondary to prerenal azotemia/hypovolemia vs sepsis vs ATN, with improving creatinine and good urine output. * metabolic acidosis, improved with sodium bicarb tabs and improving renal function. * Anemia * hypocalcemia, asymptomatic * Sepsis, cultures negative. * Intractable nausea/vomiting, symptoms not controlled. * Inguinal/scrotal hernia, large. Surgery is following. * Altered mental status - secondary to multifactorial etiologies, sepsis vs ?alcohol withdrawal. Now responding appropriately. Tox screen and alcohol level negative. * Lactic acidosis - resolved w/ resuscitation Plan: * No acute indication for renal replacement - renal function is improving * Can stop IV hydration now that he is tolerating by mouth diet * Encourage by mouth hydration * check ammonia * check ionized calcium * continue sodium bicarb tabs 650 mg 3 times a day * Check ferritin * Abx per primary team * Surgery following * Monitor lytes and volume status closely * Strict I/O * Avoid potential nephrotoxins * renally dose medications * AM labs ordered * DT prophylaxis/CIWA protocol Subjective Date of service: 06/15/20 Principal diagnosis: JULIANA Interval history: Resting comfortably. Tolerating diet. Good urine output. Objective - Exam Narrative Exam: General appearance: well-developed, well-nourished EENT: ATNC Respiratory: Present: Clear to Ascultation Cardiology: regular, S1S2 Gastrointestinal: normal, no tenderness, no distended Integumentary: warm and dry Psychiatric: other (sleeping, appears comfortable) - Vital Signs Vital signs: Vital Signs - 12hr 06/15/20 06/15/20 06/15/20 10:00 11:20 11:38 Temperature 98.0 F Pulse Rate 99 H 99 H Pulse Rate [ 90 Left Dorsalis Pedis] Pulse Rate [ 90 Left Posterior Tibial] Pulse Rate [ 90 Left Radial] Pulse Rate [ 90 Right Dorsalis Pedis] Pulse Rate [ 90 Right Posterior Tibial] Pulse Rate [ 90 Right Radial] Respiratory 19 20 Rate Blood Pressure 132/81 Blood Pressure [Left] O2 Sat by Pulse 97 96 Oximetry 06/15/20 06/15/20 16:13 18:00 Temperature 99.3 F Pulse Rate 98 H 72 Pulse Rate [ Left Dorsalis Pedis] Pulse Rate [ Left Posterior Tibial] Pulse Rate [ Left Radial] Pulse Rate [ Right Dorsalis Pedis] Pulse Rate [ Right Posterior Tibial] Pulse Rate [ Right Radial] Respiratory 20 Rate Blood Pressure Blood Pressure 122/83 [Left] O2 Sat by Pulse 98 Oximetry - Lab 06/15/20 05:17 06/15/20 05:17 Most recent lab results ABG pH 7.429 pH Units (7.350-7.450) 06/14/20 15:45 ABG pCO2 36.7 mm Hg 06/14/20 15:45 ABG pO2 111.6 mm Hg (80.0-90.0) H 06/14/20 15:45 ABG HCO3 23.8 mmol/L (20.0-26.0) 06/14/20 15:45 ABG O2 Saturation 98.1 % (95.0-99.0) 06/14/20 15:45 Calcium 8.0 mg/dL (8.4-10.2) L 06/15/20 05:17 Medications & Allergies - Medications Allergies/Adverse Reactions: Allergies No Known Allergies Allergy (Unverified 06/11/20 00:01) Home Medications: Home Medications Medication Instructions Recorded Confirmed Last Taken Type No Known Home Medications [No 06/14/20 06/14/20 Unknown History Reported Home Medications] Active Medications: Generic Name Dose Route Start Last Admin Trade Name Freq PRN Reason Stop Dose Admin Acetaminophen 650 mg 06/11/20 02:08 06/14/20 00:20 Tylenol PO 650 mg Q4H PRN Administration Pain MILD(1-3)/Fever >100.5/HERRERA Famotidine 20 mg 06/13/20 15:00 06/15/20 09:28 Pepcid PO 20 mg QDAY ALICE Administration Sodium Chloride 1,000 mls @ 125 mls/hr 06/11/20 02:15 06/15/20 14:56 Nacl 0.9% 1000 Ml IV 125 mls/hr DIRECT ALICE Administration Ceftriaxone Sodium 1 gm in 50 mls @ 100 mls/hr 06/11/20 14:00 06/15/20 14:52 Rocephin/Ns 1 Gm/50 Ml IV 100 mls/hr Q24H ALICE Administration Protocol Lorazepam 4 mg 06/12/20 14:46 Ativan IV Q15MIN PRN CIWA-Ar >25 Morphine Sulfate 2 mg 06/11/20 02:08 Morphine IV Q4H PRN Pain, Moderate (4-6) Ondansetron HCl 4 mg 06/11/20 02:08 Zofran IV Q8H PRN Nausea And Vomiting Sodium Bicarbonate 650 mg 06/14/20 20:00 06/15/20 14:10 Sodium Bicarbonate PO 650 mg TID ALICE Administration Sodium Chloride 10 ml 06/11/20 10:00 06/15/20 09:29 Sodium Chloride Flush Syringe 10 Ml IV 10 ml BID ALICE Administration Sodium Chloride 10 ml 06/11/20 02:08 Sodium Chloride Flush Syringe 10 Ml IV PRN PRN LINE FLUSH
[2020-06-16] MEDS: SODIUM CHLORIDE 0.9% 1000 ML 1,000 ML IV SCH (04:12)
--- NOTE | 2020-06-16 08:28 | Progress Note ---
Assessment and Plan Impression: * Nonoliguric JULIANA secondary to prerenal azotemia/hypovolemia vs sepsis vs ATN, with improving creatinine and good urine output. * metabolic acidosis, improved with sodium bicarb tabs and improving renal function. * Anemia due to iron deficiency * hypocalcemia, asymptomatic * Sepsis, cultures negative. Received empiric antibiotic therapy. * Intractable nausea/vomiting, symptoms not controlled. * Inguinal/scrotal hernia, large. Surgery is following. Plan for surgery tomorrow. * Altered mental status - secondary to multifactorial etiologies, sepsis vs ?alcohol withdrawal. Now responding appropriately. Tox screen and alcohol level negative. Ammonia level normal. * Lactic acidosis - resolved w/ resuscitation Plan: * No acute indication for renal replacement - renal function is improving * continue IV hydration while nothing by mouth for surgery * check ionized calcium - previously ordered, pending * continue sodium bicarb tabs 650 mg 3 times a day * start by mouth iron * Abx per primary team * Surgery following * Monitor lytes and volume status closely * Strict I/O * Avoid potential nephrotoxins * renally dose medications * AM labs ordered * DT prophylaxis/CIWA protocol Subjective Date of service: 06/16/20 Principal diagnosis: JULIANA Interval history: Awake and alert. Sitting up in chair. Conversant. Objective - Exam Narrative Exam: General appearance: well-developed, well-nourished EENT: ATNC Respiratory: Present: Clear to Ascultation Cardiology: regular, S1S2 Gastrointestinal: normal, no tenderness, no distended Integumentary: warm and dry Psychiatric: no anxiety or depression, cooperative - Vital Signs Vital signs: Vital Signs - 12hr 06/15/20 06/16/20 23:47 04:00 Temperature 99.7 F H 99.0 F Pulse Rate 88 96 H Respiratory 18 18 Rate Blood Pressure 130/84 121/83 O2 Sat by Pulse 98 96 Oximetry - Lab 06/15/20 05:17 06/15/20 05:17 Most recent lab results ABG pH 7.429 pH Units (7.350-7.450) 06/14/20 15:45 ABG pCO2 36.7 mm Hg 06/14/20 15:45 ABG pO2 111.6 mm Hg (80.0-90.0) H 06/14/20 15:45 ABG HCO3 23.8 mmol/L (20.0-26.0) 06/14/20 15:45 ABG O2 Saturation 98.1 % (95.0-99.0) 06/14/20 15:45 Calcium 8.0 mg/dL (8.4-10.2) L 06/15/20 05:17 Medications & Allergies - Medications Allergies/Adverse Reactions: Allergies No Known Allergies Allergy (Unverified 06/11/20 00:01) Home Medications: Home Medications Medication Instructions Recorded Confirmed Last Taken Type No Known Home Medications [No 06/14/20 06/14/20 Unknown History Reported Home Medications] Active Medications: Generic Name Dose Route Start Last Admin Trade Name Freq PRN Reason Stop Dose Admin Acetaminophen 650 mg 06/11/20 02:08 06/14/20 00:20 Tylenol PO 650 mg Q4H PRN Administration Pain MILD(1-3)/Fever >100.5/HERRERA Famotidine 20 mg 06/13/20 15:00 06/15/20 09:28 Pepcid PO 20 mg QDAY ALICE Administration Sodium Chloride 1,000 mls @ 125 mls/hr 06/11/20 02:15 06/16/20 04:12 Nacl 0.9% 1000 Ml IV 125 mls/hr DIRECT ALICE Administration Ceftriaxone Sodium 1 gm in 50 mls @ 100 mls/hr 06/11/20 14:00 06/15/20 14:52 Rocephin/Ns 1 Gm/50 Ml IV 100 mls/hr Q24H ALICE Administration Protocol Lorazepam 4 mg 06/12/20 14:46 Ativan IV Q15MIN PRN CIWA-Ar >25 Morphine Sulfate 2 mg 06/11/20 02:08 Morphine IV Q4H PRN Pain, Moderate (4-6) Ondansetron HCl 4 mg 06/11/20 02:08 Zofran IV Q8H PRN Nausea And Vomiting Sodium Bicarbonate 650 mg 06/14/20 20:00 06/15/20 21:35 Sodium Bicarbonate PO 650 mg TID ALICE Administration Sodium Chloride 10 ml 06/11/20 10:00 06/15/20 21:35 Sodium Chloride Flush Syringe 10 Ml IV 10 ml BID ALICE Administration Sodium Chloride 10 ml 06/11/20 02:08 06/16/20 04:14 Sodium Chloride Flush Syringe 10 Ml IV 10 ml PRN PRN Administration LINE FLUSH
[2020-06-16] MEDS: SODIUM BICARBONATE 650 MG TAB PO SCH ×3 (09:30→21:31)
--- NOTE | 2020-06-16 10:11 | Progress Note ---
Subjective Date of service: 06/16/20 Principal diagnosis: JULIANA Interval history: Sepsis. Patient meets criteria given the leukocytosis, tachycardia and diagnosis of UTI. Urine and blood cultures showed no growth Continue empiric ceftriaxone Leukocytosis Improved Incarcerated right inguinal scrotal hernia Apparently the hernia until recently was reducible Scheduled for surgery on 06/17 General surgery note reviewed and appreciated Nonoliguric JULIANA. Etiology secondary to prerenal azotemia/ATN. Significantly improved BUN/creatinine close to normal today Intractable nausea and vomiting. Improved Patient is tolerating diet well Toxic metabolic encephalopathy. Secondary to severe dehydration and sepsis Resolved Normocytic anemia H&H fair Hypokalemia Mild Serum potassium 3.4 Potassium supplemented Monitor electrolytes Lactic acidosis. Improved Mr. Atkinson is a 45 years old male with no significant past medical history however he does not follow-up with any primary care physician who presented to the ED complaining of right scrotal swelling. 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 He reports intractable nausea/vomiting w/ poor po intake. Hernia was reducible until recently. 06/12/2020. Creatinine has improved 7.7--> 7.3--> 5.4. Continue IV fluid hydration and monitor BMP closely. Nephrology following. Surgery feels that it is extremely unlikely to have compromised/incarcerated inguinal hernia based on exam. Hernia repair per surgery recommendations. Hypotension has improved with IV fluid hydration. 06/13/2020. Creatinine with steady improvement since admission 7.7--> 7.3--> 5.4 -->4.4. Continue IV fluid hydration and monitor BMP closely. Nephrology following. Surgery feels that it is extremely unlikely to have compromised/incarcerated inguinal hernia based on exam. Hernia repair per surgery recommendations. Hypotension has resolved with IV fluid hydration 06/14/2020. Patient has had steady improvement of creatinine since admission. Await BMP for today. CT scan did not report any evidence of renal obstruction. Patient with nonoliguric JULIANA with etiology secondary to prerenal azotemia/ATN/vasomotor nephropathy. Continue IV fluid hydration. Nephrology following. Surgery feels that it is extremely unlikely to have compromised/incarcerated inguinal hernia based on exam. Hernia repair per shree regina recommendations. 06/15 patient is alert and oriented and not in any distress and offers no sp ecific complaints. Tolerating diet well Lab results reviewed General surgery and pulmonary notes reviewed Scheduled for surgery right inguinal scrotal hernia on 06/17 06/16 no acute events over nite. no complaints Objective - Constitutional Vitals: Vital Signs - 12hr 06/15/20 06/16/20 06/16/20 23:47 04:00 08:51 Temperature 99.7 F H 99.0 F 98.4 F Pulse Rate 88 96 H 90 Pulse Rate [ 87 From Monitor] Respiratory 18 18 18 Rate Blood Pressure 130/84 121/83 109/70 O2 Sat by Pulse 98 96 99 Oximetry General appearance: Present: no acute distress - EENT Eyes: PERRL, EOM intact ENT: hearing intact, clear oral mucosa - Neck Neck: supple, normal ROM - Respiratory Respiratory effort: normal Respiratory: bilateral: CTA - Cardiovascular Rhythm: regular Heart Sounds: Present: S1 & S2 Extremities: No edema - Gastrointestinal General gastrointestinal: Present: soft, non-tender Rectal Exam: deferred - Genitourinary Male genitourinary: right inguinal hernia - Integumentary Integumentary: clear - Musculoskeletal Musculoskeletal: strength equal bilaterally - Neurologic Neurologic: no focal deficits, moves all extremities - Psychiatric Psychiatric: appropriate mood/affect - Labs CBC & Chem 7: 06/15/20 05:17 06/15/20 05:17 Labs: Abnormal lab results 06/15/20 Range/Units 20:39 Ammonia 17.0 L (25-60) umol/L
[2020-06-16] MEDS: FAMOTIDINE 20 MG TAB PO SCH (10:12)
[2020-06-16] MEDS: FERROUS SULFATE 325 MG TAB PO SCH (10:12)
--- NOTE | 2020-06-16 10:45 | Progress Note ---
Assessment and Plan - Patient Problems (1) Right inguinal hernia Current Visit: Yes Status: Acute Plan to address problem: Pt stable. He continues to show improvement in his overall health and kidney function. He is tentatively scheduled for surgery on . Anticipate that if everything goes well and surgery and there are no other medical issues, he will be cleared for discharge on Sunday from the surgical standpoint. Pre-op orders have been entered. NPO p MN. Please call with any questions. Time=10min Subjective Date of service: 06/16/20 Patient Reports: Positive: no new complaints, feels better Objective Vital Signs - 12hr 06/15/20 06/16/20 06/16/20 23:47 04:00 08:51 Temperature 99.7 F H 99.0 F 98.4 F Pulse Rate 88 96 H 90 Pulse Rate [ 87 From Monitor] Respiratory 18 18 18 Rate Blood Pressure 130/84 121/83 109/70 O2 Sat by Pulse 98 96 99 Oximetry - General physical appearance no distress, no pain - Respiratory normal expansion, normal respiratory effort - Abdomen soft, not tender - Psychiatric oriented to time, oriented to person, oriented to place, speech is normal, karena ry intact - Labs 06/15/20 05:17 06/15/20 05:17
[2020-06-16] MEDS: cefTRIAXone/NS 1 GM/50 ML 1 GM/50 ML BAG IV SCH (13:23)
--- NOTE | 2020-06-16 14:23 | Progress Note ---
Assessment and Plan Patient alert, awake. Sitting up in chair. Patient is on on room air. O2 saturation 99%. No acute respiratory distress.No complaint of chest pain, shortness of breath or cough. Patient scheduled for surgery to repair of right sided incarcerated inguinal hernia this . Patient has history of smoking 1 pack x 3 days for 20 years. Counselled to stop smoking. Denies alcohol or drug abuse. 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 No known drug allergies. Ordered incentive spirometry and bed side PFTs. - Patient Problems (1) Sepsis Current Visit: Yes Status: Acute Plan to address problem: Patient is on ceftriaxone. (2) Acute renal failure Current Visit: Yes Status: Acute Plan to address problem: Management as per nephrology. (3) Incarcerated right inguinal hernia Current Visit: Yes Status: Acute Plan to address problem: Patent tentatively scheduled this for surgery to repair incarcerated right inguinal Hernia. Recommend incentive spirometry. Bedside spirometry. Subjective Date of service: 06/16/20 Principal diagnosis: JULIANA Interval history: Patient alert, awake. Sitting up in chair. Patient is on on room air. O2 saturation 99%. No acute respiratory distress.No complaint of chest pain, shortness of breath or cough. Patient scheduled for surgery to repair of right sided incarcerated inguinal hernia this . Patient has history of smoking 1 pack x 3 days for 20 years. Counselled to stop smoking. Denies alcohol or drug abuse. 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 No known drug allergies. Ordered incentive spirometry and bed side PFTs. Objective Vital Signs - 12hr 06/16/20 06/16/20 06/16/20 04:00 08:51 10:00 Temperature 99.0 F 98.4 F Pulse Rate 96 H 90 81 Pulse Rate [ 87 From Monitor] Respiratory 18 18 Rate Blood Pressure 121/83 109/70 O2 Sat by Pulse 96 99 Oximetry 06/16/20 11:47 Temperature 98.2 F Pulse Rate 94 H Pulse Rate [ From Monitor] Respiratory Rate Blood Pressure 116/65 O2 Sat by Pulse 96 Oximetry Constitutional: no acute distress, alert Eyes: non-icteric ENT: oropharynx moist Neck: supple, no lymphadenopathy Ascultation: Bilateral: clear Cardiovascular: regular rate and rhythm Gastrointestinal: tender, other (Incarcerated right inguinal hernia.) Integumentary: normal Extremities: no cyanosis, no edema Neurologic: normal mental status, non-focal exam, pupils equal and round, CN II- XII normal Psychiatric: mood appropriate CBC and BMP: 06/17/20 06:59 06/17/20 06:59 ABG, PT/INR, D-dimer: ABG ABG pH 7.429 pH Units (7.350-7.450) 06/14/20 15:45 ABG pCO2 36.7 mm Hg 06/14/20 15:45 ABG pO2 111.6 mm Hg (80.0-90.0) H 06/14/20 15:45 ABG O2 Saturation 98.1 % (95.0-99.0) 06/14/20 15:45 PT/INR, D-dimer PT 14.7 Sec. (12.2-14.9) 06/12/20 04:26 INR 1.13 (0.87-1.13) 06/12/20 04:26 Abnormal lab findings: Abnormal Labs 06/10/20 06/10/20 06/10/20 22:39 22:39 Unknown WBC 21.0 H RBC Hgb Hct Plt Count 505 H [place] % (Auto) [place] # Seg Neutrophils % Seg Neuts % (Manual) 84.0 H Lymphocytes % (Manual) 6.0 L Monocytes % (Manual) 8.0 H Seg Neutrophils # Seg Neutrophils # Man 17.6 H Monocytes # (Manual) 1.7 H ABG pO2 ABG Hemoglobin Potassium Chloride 80.1 L Carbon Dioxide BUN 58 H Creatinine 7.7 H Glucose 147 H Lactic Acid Calcium Iron TIBC AST 50 H Ammonia Total Protein 8.8 H Urine WBC (Auto) 19.0 H 06/11/20 06/11/20 06/12/20 00:45 10:48 04:26 WBC 11.9 H RBC 3.53 L Hgb 11.3 L D Hct 32.7 L D Plt Count [place] % (Auto) [place] # Seg Neutrophils % Seg Neuts % (Manual) 83.0 H Lymphocytes % (Manual) 10.0 L Monocytes % (Manual) Seg Neutrophils # Seg Neutrophils # Man 9.9 H Monocytes # (Manual) ABG pO2 ABG Hemoglobin Potassium Chloride 97.6 L Carbon Dioxide 19 L BUN 69 H Creatinine 7.3 H Glucose 148 H Lactic Acid 4.90 H* Calcium 7.1 L D Iron TIBC AST Ammonia Total Protein Urine WBC (Auto) 06/12/20 06/13/20 06/13/20 04:26 04:54 04:54 WBC 12.4 H RBC 3.20 L Hgb 9.7 L Hct 29.8 L Plt Count [place] % (Auto) 10.4 H [place] # 1.3 H Seg Neutrophils % 75.6 H Seg Neuts % (Manual) Lymphocytes % (Manual) Monocytes % (Manual) Seg Neutrophils # 9.3 H Seg Neutrophils # Man Monocytes # (Manual) ABG pO2 ABG Hemoglobin Potassium Chloride Carbon Dioxide 18 L 20 L BUN 75 H 76 H Creatinine 5.4 H 4.4 H Glucose 154 H 112 H Lactic Acid Calcium 7.9 L 8.3 L Iron TIBC AST Ammonia Total Protein Urine WBC (Auto) 06/14/20 06/14/20 06/14/20 13:02 15:45 17:05 WBC RBC Hgb Hct Plt Count [place] % (Auto) [place] # Seg Neutrophils % Seg Neuts % (Manual) Lymphocytes % (Manual) Monocytes % (Manual) Seg Neutrophils # Seg Neutrophils # Man Monocytes # (Manual) ABG pO2 111.6 H ABG Hemoglobin 9.1 L Potassium Chloride Carbon Dioxide 20 L BUN 40 H Creatinine 2.3 H Glucose Lactic Acid Calcium 8.1 L Iron 38 L TIBC 229 L AST Ammonia Total Protein Urine WBC (Auto) 06/15/20 06/15/20 06/15/20 05:17 05:17 20:39 WBC RBC 2.82 L Hgb 8.9 L Hct 26.2 L Plt Count [place] % (Auto) 9.1 H [place] # 0.9 H Seg Neutrophils % Seg Neuts % (Manual) Lymphocytes % (Manual) Monocytes % (Manual) Seg Neutrophils # Seg Neutrophils # Man Monocytes # (Manual) ABG pO2 ABG Hemoglobin Potassium 3.4 L Chloride Carbon Dioxide BUN 30 H Creatinine 1.6 H Glucose Lactic Acid Calcium 8.0 L Iron TIBC AST Ammonia 17.0 L Total Protein Urine WBC (Auto)
--- NOTE | 2020-06-16 16:19 | Anesthesia Consultation ---
Anesthesia Consult and Med Hx Date of service: 06/16/20 - Airway Anesthetic Teeth Evaluation: Poor (multiple missing, chipped teeth) ROM Head & Neck: Adequate Mental/Hyoid Distance: Adequate Mallampati Class: Class II Intubation Access Assessment: Probably Good - Pre-Operative Health Status ASA Pre-Surgery Classification: ASA2 Proposed Anesthetic Plan: General - Pulmonary Hx Smoking: Yes (1/3 pack x 22 years) Hx Asthma: No COPD: No Hx Pneumonia: No - Cardiovascular System Hx Hypertension: Yes (was on the Lisinopril 5mg/day, took himself off the meds) Hx Peripheral Vascular Disease: Yes (s/p spider bite R lower leg, slow healing ulcer) - Gastrointestinal Hx Gastroesophageal Reflux Disease: Yes - Endocrine Hx Renal Disease: Yes (s/p acute kidney failure, resolving) Hx End Stage Renal Disease: No - Additional Comments Anesthesia Medical History Comments: inguinal hernia
[2020-06-16] MEDS ORDERED: CELECOXIB 200 MG CAP PO NR (17:00)
[2020-06-16] MEDS ORDERED: GABAPENTIN 300 MG CAP PO NR (17:00)
[2020-06-17] MEDS ORDERED: ceFAZolin/Water 2 GM/20 ML 2 GM/20 ML SYRINGE IV NR (06:00)
[2020-06-17] MEDS ORDERED: LACTATED RINGERS 1,000 ML IV SCH (07:00)
[2020-06-17] MEDS ORDERED: MIDAZOLAM 2 MG/2 ML INJ IV NR (07:00)
[2020-06-17] MEDS: FERROUS SULFATE 325 MG TAB PO SCH (07:30)
[2020-06-17 07:49] LABS: Hematocrit 26.1 % (35.5-45.6); Hemoglobin 8.9 gm/dl (11.8-15.2); Mean Corpuscular HGB Conc 34 % (32-34); Mean Corpuscular Volume 91 fl (84-94); Platelet Count 306 K/mm3 (140-440); Red Blood Count 2.86 M/mm3 (3.65-5.03); Red Cell Distribution Width 13.5 % (13.2-15.2)
[2020-06-17 08:11] LABS: BUN/Creatinine Ratio 14; Blood Urea Nitrogen 14 mg/dL (9-20); Hemolysis Index 0
[2020-06-17] MEDS: SODIUM BICARBONATE 650 MG TAB PO SCH ×2 (08:17→14:00)
--- NOTE | 2020-06-17 09:16 | Progress Note ---
Assessment and Plan Impression: * hypokalemia, likely due to polyuria * Polyuria, this is due to high net input * Hypomagnesemia * metabolic acidosis, improved with sodium bicarb tabs and improving renal function. * Anemia due to iron deficiency * hypocalcemia, asymptomatic * Sepsis, cultures negative. Received empiric antibiotic therapy. * Intractable nausea/vomiting, symptoms not controlled. * Inguinal/scrotal hernia, large. Surgery is following. Plan for surgery tomorrow. * Altered mental status - secondary to multifactorial etiologies, sepsis vs ?alcohol withdrawal. Now responding appropriately. Tox screen and alcohol level negative. Ammonia level normal. * Lactic acidosis - resolved w/ resuscitation * Nonoliguric JULIANA secondary to prerenal azotemia/hypovolemia vs sepsis vs ATN. Resolved. Plan: * replete potassium to goal 4. Can give 60 meq/l and reassess * Stop IV hydration post surgery * Replete Magnesium * check ionized calcium - previously ordered, pending * continue sodium bicarb tabs 650 mg 3 times a day * continue by mouth iron * Abx per primary team * Surgery following * Monitor lytes and volume status closely * Strict I/O * Avoid potential nephrotoxins * renally dose medications * AM labs ordered * DT prophylaxis/CIWA protocol Subjective Date of service: 06/17/20 Principal diagnosis: JULIANA Interval history: Seen status post surgery today. Started back on diet. Objective - Exam Narrative Exam: General appearance: well-developed, well-nourished EENT: ATNC Respiratory: Present: Clear to Ascultation Cardiology: regular, S1S2 Gastrointestinal: normal, no tenderness, no distended Integumentary: warm and dry Psychiatric: no anxiety or depression, cooperative - Vital Signs Vital signs: Vital Signs - 12hr 06/16/20 06/16/20 06/16/20 22:10 22:56 23:41 Temperature 100.0 F H Pulse Rate 97 H Pulse Rate [ 105 H Apical] Pulse Rate [ 105 H From Monitor] Respiratory 18 20 Rate Blood Pressure 129/85 O2 Sat by Pulse 99 Oximetry 06/17/20 06/17/20 04:28 07:35 Temperature 97.8 F 99.4 F Pulse Rate 95 H 100 H Pulse Rate [ Apical] Pulse Rate [ From Monitor] Respiratory 20 18 Rate Blood Pressure 116/61 132/89 O2 Sat by Pulse 94 94 Oximetry - Lab 06/17/20 06:59 06/17/20 06:59 Most recent lab results ABG pH 7.429 pH Units (7.350-7.450) 06/14/20 15:45 ABG pCO2 36.7 mm Hg 06/14/20 15:45 ABG pO2 111.6 mm Hg (80.0-90.0) H 06/14/20 15:45 ABG HCO3 23.8 mmol/L (20.0-26.0) 06/14/20 15:45 ABG O2 Saturation 98.1 % (95.0-99.0) 06/14/20 15:45 Calcium 8.0 mg/dL (8.4-10.2) L 06/17/20 06:59 Medications & Allergies - Medications Allergies/Adverse Reactions: Allergies No Known Allergies Allergy (Unverified 06/11/20 00:01) Home Medications: Home Medications Medication Instructions Recorded Confirmed Last Taken Type HYDROcodone/APAP 5-325 [[place] 1 each PO Q6H PRN 5 Days #12 tablet 06/17/20 Un known Rx 5-325 mg TAB] Active Medications: Generic Name Dose Route Start Last Admin Trade Name Freq PRN Reason Stop Dose Admin Acetaminophen 650 mg 06/11/20 02:08 06/14/20 00:20 Tylenol PO 650 mg Q4H PRN Administration Pain MILD(1-3)/Fever >100.5/HERRERA Famotidine 20 mg 06/13/20 15:00 06/16/20 10:12 Pepcid PO 20 mg QDAY ALICE Administration Ferrous Sulfate 325 mg 06/16/20 10:00 06/16/20 10:12 Feosol PO 325 mg QDAY ALICE Administration Ceftriaxone Sodium 1 gm in 50 mls @ 100 mls/hr 06/11/20 14:00 06/16/20 13:23 Rocephin/Ns 1 Gm/50 Ml IV 100 mls/hr Q24H ALICE Administration Protocol Cefazolin Sodium 2 gm in 20 mls @ 80 mls/hr 06/17/20 06:00 Ancef/Sterile Water 2 Gm/20 Ml IV 06/17/20 23:59 PREOP NR Lactated Ringer's 1,000 mls @ 100 mls/hr 06/17/20 07:00 Lactated Ringers IV DIRECT ALICE Lorazepam 4 mg 06/12/20 14:46 Ativan IV Q15MIN PRN CIWA-Ar >25 Midazolam HCl 2 mg 06/17/20 07:00 Versed IV 06/17/20 23:59 PREOP NR Morphine Sulfate 2 mg 06/11/20 02:08 Morphine IV Q4H PRN Pain, Moderate (4-6) Ondansetron HCl 4 mg 06/11/20 02:08 Zofran IV Q8H PRN Nausea And Vomiting Sodium Bicarbonate 650 mg 06/14/20 20:00 06/17/20 08:17 Sodium Bicarbonate PO Not Given TID ALICE Sodium Chloride 10 ml 06/11/20 10:00 06/16/20 21:31 Sodium Chloride Flush Syringe 10 Ml IV 10 ml BID ALICE Administration Sodium Chloride 10 ml 06/11/20 02:08 06/16/20 04:14 Sodium Chloride Flush Syringe 10 Ml IV 10 ml PRN PRN Administration LINE FLUSH
--- NOTE | 2020-06-17 09:27 | Progress Note ---
Subjective Date of service: 06/17/20 Principal diagnosis: JULIANA Interval history: A/P: Sepsis. Patient meets criteria given the leukocytosis, tachycardia and diagnosis of UTI. Urine and blood cultures showed no growth Completed Abx course Leukocytosis Improved Incarcerated right inguinal scrotal hernia Apparently the hernia until recently was reducible Scheduled for inguinal hernia repair on 06/17 General surgery note reviewed and appreciated Nonoliguric JULIANA. Etiology secondary to prerenal azotemia/ATN. Significantly improved BUN/creatinine close to normal today Intractable nausea and vomiting. Improved Patient is tolerating diet well Toxic metabolic encephalopathy. Secondary to severe dehydration and sepsis Resolved Normocytic anemia H&H fair Hypokalemia Serum potassium 3.0 IV potassium riders x 3 ordered check magnesium level Monitor electrolytes Lactic acidosis. Improved Mr. Atkinson is a 45 years old male with no significant past medical history however he does not follow-up with any primary care physician who presented to the ED complaining of right scrotal swelling. 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 He reports intractable nausea/vomiting w/ poor po intake. Hernia was reducible until recently. 06/12/2020. Creatinine has improved 7.7--> 7.3--> 5.4. Continue IV fluid hydration and monitor BMP closely. Nephrology following. Surgery feels that it is extremely unlikely to have compromised/incarcerated inguinal hernia based on exam. Hernia repair per surgery recommendations. Hypotension has improved with IV fluid hydration. 06/13/2020. Creatinine with steady improvement since admission 7.7--> 7.3--> 5.4 -->4.4. Continue IV fluid hydration and monitor BMP closely. Nephrology following. Surgery feels that it is extremely unlikely to have compromised/incarcerated inguinal hernia based on exam. Hernia repair per surgery recommendations. Hypotension has resolved with IV fluid hydration 06/14/2020. Patient has had steady improvement of creatinine since admission. Await BMP for today. CT scan did not report any evidence of renal obstruction. Patient with nonoliguric JULIANA with etiology secondary to prerenal azotemia/ATN/vasomotor nephropathy. Continue IV fluid hydration. Nephrology following. Surgery feels that it is extremely unlikely to have compromised/incarcerated inguinal hernia based on exam. Hernia repair per surgery recommendations. 06/15 patient is alert and oriented and not in any distress and offers no specific complaints. Tolerating diet well Lab results reviewed General surgery and pulmonary notes reviewed Scheduled for surgery right inguinal scrotal hernia on 06/17 06/16 no acute events over nite. no complaints 06/17 no complaints. lab results reviewed. IV potassium supplements ordered. For Hernia repair today Objective - Constitutional Vitals: Vital Signs - 12hr 06/16/20 06/16/20 06/16/20 22:10 22:56 23:41 Temperature 100.0 F H Pulse Rate 97 H Pulse Rate [ 105 H Apical] Pulse Rate [ 105 H From Monitor] Respiratory 18 20 Rate Blood Pressure 129/85 O2 Sat by Pulse 99 Oximetry 06/17/20 06/17/20 04:28 07:35 Temperature 97.8 F 99.4 F Pulse Rate 95 H 100 H Pulse Rate [ Apical] Pulse Rate [ From Monitor] Respiratory 20 18 Rate Blood Pressure 116/61 132/89 O2 Sat by Pulse 94 94 Oximetry General appearance: Present: no acute distress - EENT Eyes: PERRL, EOM intact ENT: hearing intact, clear oral mucosa - Neck Neck: supple, normal ROM - Respiratory Respiratory effort: normal Respiratory: bilateral: CTA - Cardiovascular Rhythm: regular Heart Sounds: Present: S1 & S2 Extremities: No edema - Gastrointestinal General gastrointestinal: Present: soft, non-tender, hernia (large rt. inguino scrotal hernia) Rectal Exam: deferred - Integumentary Integumentary: clear - Musculoskeletal Musculoskeletal: strength equal bilaterally - Neurologic Neurologic: no focal deficits - Psychiatric Psychiatric: appropriate mood/affect - Labs CBC & Chem 7: 06/17/20 06:59 06/17/20 06:59 Labs: Abnormal lab results 06/17/20 06/17/20 Range/Units 06:59 06:59 RBC 2.86 L (3.65-5.03) M/mm3 Hgb 8.9 L (11.8-15.2) gm/dl Hct 26.1 L (35.5-45.6) % Potassium 3.0 L (3.6-5.0) mmol/L Glucose 104 H (75-100) mg/dL Calcium 8.0 L (8.4-10.2) mg/dL
[2020-06-17] MEDS ORDERED: HYDROmorphone 1 MG/1 ML INJ IV PRN (10:10)
--- NOTE | 2020-06-17 10:10 | Anesthesia Day of Surgery ---
Anesthesia Day of Surgery - Day of Surgery Patient Examined: Yes Patient H&P Reviewed: Yes Patient is NPO: Yes
[2020-06-17] MEDS: FAMOTIDINE 20 MG TAB PO SCH (10:20)
[2020-06-17] MEDS ORDERED: dexAMETHasone 20 MG/5 ML VIAL ONE (10:26)
[2020-06-17] MEDS ORDERED: GLYCOPYRROLATE 0.4 MG/2 ML INJ ONE (10:26)
[2020-06-17] MEDS ORDERED: ONDANSETRON 4 MG/2 ML INJ ONE (10:26)
[2020-06-17] MEDS ORDERED: SUCCINYLCHOLINE CHLORIDE 200 MG/10 ML INJ MDV ONE (10:26)
[2020-06-17] MEDS ORDERED: NEOSTIGMINE 10MG/10 ML INJ MDV ONE (10:26)
[2020-06-17] MEDS ORDERED: LIDOCAINE MPF (2%) 20 MG/1 ML VIAL 5 ML ONE (10:26)
[2020-06-17] MEDS ORDERED: ROCURONIUM 50 MG/5 ML INJ IV ONE (10:26)
[2020-06-17] MEDS ORDERED: propofoL 200 MG/20 ML VIAL IV ONE (10:26)
[2020-06-17] MEDS ORDERED: fentaNYL 100 MCG/2 ML INJ ONE (10:26)
[2020-06-17] MEDS ORDERED: PHENYLEPHRINE/NS 1,000 MCG/10 ML SYRINGE (OR USE) IV ONE (10:26)
[2020-06-17] MEDS ORDERED: BUPIVACAINE/PF (0.5%) 5 MG/1 ML 30 ML VIAL INFILTRATI ONE (10:27)
[2020-06-17] MEDS ORDERED: LIDOCAINE (1%) 10 MG/1 ML VIAL 20 ML MDV ONE (10:27)
[2020-06-17] MEDS ORDERED: BUPIVACAINE-EPINEPHRINE/PF 0.5%-1:200,000 (30 ML) VIAL INFILTRATI ONE ×2 (10:30→13:30)
[2020-06-17] MEDS ORDERED: SCOPOLAMINE TRANSDERMAL PATCH 72 HR TD NR (11:00)
[2020-06-17] MEDS ORDERED: HYDROmorphone 1 MG/1 ML INJ ONE ×2 (11:28→12:31)
[2020-06-17] MEDS ORDERED: WATER FOR IRRIG STERILE 1,500 ML BOTTLE IR ONE (13:30)
[2020-06-17] MEDS ORDERED: LIDOCAINE (1%) 10 MG/1 ML VIAL 20 ML MDV INFILTRATI ONE (13:30)
--- NOTE | 2020-06-17 13:51 | Post Operative Note ---
Date of procedure: 06/17/20 (dictation:[id number]) Pre-op diagnosis: Chronic right inguino-scrotal hernia Post-op diagnosis: same Findings: large indirect inguino-scrotal hernia with bowel in the sac. No hernia on left Procedure: robotic assisted lap RIH repair 2200cc IVF Anesthesia: GETA Surgeon: KALIA BELTRAN Manager Machine: ANNMARIE ROTH Estimated blood loss: minimal Pathology: none Condition: stable Disposition: PACU
[2020-06-17] MEDS ORDERED: HYDROcodone/ACETAMINOPHEN 5-325 MG TAB PO PRN (13:52)
--- NOTE | 2020-06-17 14:20 | Discharge Summary ---
Providers - Providers Date of Admission: 06/11/20 01:16 Date of discharge: 06/17/20 Attending physician: TIGRE MELGAR 06/11/20 00:44 Consult to Physician [CONS] Stat Comment: Consulting Provider: ERWIN DIAS Physician Instructions: Reason For Exam: Acute renal failure 06/11/20 01:09 Consult to Physician [CONS] Stat Comment: Consulting Provider: KALIA PLEITEZ Physician Instructions: Reason For Exam: Incarcerated right inguinal hernia 06/11/20 23:59 Consult to Physician [CONS] Routine Comment: Consulting Provider: CORTEZ SIEGEL Physician Instructions: Reason For Exam: INCARCERATED RIGHT INGUINAL HERNIA Primary care physician: CHAR FILTER OPERATOR Hospitalization Reason for admission: sepsis Condition: Stable Procedures: Right inguinal hernia repair Hospital course: Sepsis. Patient meets criteria given the leukocytosis, tachycardia and diagnosis of UTI. Urine and blood cultures showed no growth Completed Abx course Leukocytosis Improved Incarcerated right inguinal scrotal hernia Apparently the hernia until recently was reducible Scheduled for inguinal hernia repair on 06/17 General surgery note reviewed and appreciated Nonoliguric JULIANA. Etiology secondary to prerenal azotemia/ATN. Significantly improved BUN/creatinine close to normal today Intractable nausea and vomiting. Improved Patient is tolerating diet well Toxic metabolic encephalopathy. Secondary to severe dehydration and sepsis Resolved Normocytic anemia H&H fair Hypokalemia Serum potassium 3.0 IV potassium riders x 3 ordered check magnesium level Monitor electrolytes Lactic acidosis. Improved Mr. Atkinson is a 45 years old male with no significant past medical history however he does not follow-up with any primary care physician who presented to the ED complaining of right scrotal swelling. 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 He reports intractable nausea/vomiting w/ poor po intake. Hernia was reducible until recently. 06/12/2020. Creatinine has improved 7.7--> 7.3--> 5.4. Continue IV fluid hydration and monitor BMP closely. Nephrology following. Surgery feels that it is extremely unlikely to have compromised/incarcerated inguinal hernia based on exam. Hernia repair per surgery recommendations. Hypotension has improved with IV fluid hydration. 06/13/2020. Creatinine with steady improvement since admission 7.7--> 7.3--> 5.4 -->4.4. Continue IV fluid hydration and monitor BMP closely. Nephrology following. Surgery feels that it is extremely unlikely to have compromised/incarcerated inguinal hernia based on exam. Hernia repair per surgery recommendations. Hypotension has resolved with IV fluid hydration 06/14/2020. Patient has had steady improvement of creatinine since admission. Await BMP for today. CT scan did not report any evidence of renal obstruction. Patient with nonoliguric JULIANA with etiology secondary to prerenal azotemia/ATN/vasomotor nephropathy. Continue IV fluid hydration. Nephrology following. Surgery feels that it is extremely unlikely to have compromised/in carcerated inguinal hernia based on exam. Hernia repair per surgery recommendations. 06/15 patient is alert and oriented and not in any distress and offers no specific complaints. Tolerating diet well Lab results reviewed General surgery and pulmonary notes reviewed Scheduled for surgery right inguinal scrotal hernia on 06/17 06/16 no acute events over nite. no complaints 06/17 no complaints. lab results reviewed. IV and PO potassium supplements ordered. s/p right inguinal hernia repair Discussed with general surgery Dr. Pleitez and he was cleared for discharge Discussed with patient post surgery, and he states that he feels okay to go home Feels slightly groggy. We will discharge the patient around 6 PM Patient is medically stable for discharge later today Disposition: DC-01 TO HOME OR SELFCARE Time spent for discharge: 38 min Core Measure Documentation - Palliative Care Palliative Care/ Comfort Measures: Not Applicable - Core Measures Any of the following diagnoses?: none Exam - Constitutional Vitals: Temp Pulse Resp BP Pulse Ox 98.7 F 89 20 117/78 96 06/17/20 10:15 06/17/20 10:15 06/17/20 10:15 06/17/20 10:15 06/17/20 10:15 General appearance: Present: no acute distress - EENT Eyes: Present: PERRL, EOM intact ENT: hearing intact, clear oral mucosa - Neck Neck: Present: supple, normal ROM - Respiratory Respiratory effort: normal Respiratory: bilateral: CTA - Cardiovascular Rhythm: regular Heart Sounds: Present: S1 & S2 - Extremities Extremities: No edema - Abdominal General gastrointestinal: Present: soft, non-tender, other (Right inguinal surgical dressing) - Integumentary Integumentary: Present: clear - Musculoskeletal Musculoskeletal: strength equal bilaterally - Psychiatric Psychiatric: appropriate mood/affect - Neurologic Neurologic: no focal deficits Plan Activity: advance as tolerated Weight Bearing Status: Full Weight Bearing Diet: regular, low fat, low salt Wound: keep clean and dry Assessment: Discharge around 6 to 7 PM today Follow up with: PRIMARY CAREMD [Primary Care Provider] - 3-5 Days KALIA PLEITEZ MD [Staff Physician] - 14 Days Prescriptions: HYDROcodone/APAP 5-325 [[place] 5-325 mg TAB] 1 each PO Q6H PRN 5 Days #12 tablet PRN Reason: Pain, Moderate (4-6)
--- NOTE | 2020-06-17 14:51 | Operative Report ---
PREOPERATIVE DIAGNOSIS: Chronic right inguinoscrotal hernia. POSTOPERATIVE DIAGNOSIS: Chronic right inguinoscrotal hernia. PROCEDURE: Robotic-assisted laparoscopic right inguinal hernia repair. ATTENDING PHYSICIAN: Delfina Pleitez MD COMPUTER ANALYST SUPERVISOR: Dr. Martínez. ANESTHESIA: General. ESTIMATED BLOOD LOSS: Minimal. FLUIDS: 2200 of crystalloid. FINDINGS: Very large indirect right inguinal hernia with colon and small bowel herniated through. They were easily reduced. There was no evidence of any bowel compromise or ischemia as was previously thought when he was admitted. There was no hernia on the left. IMPLANTS: Bard 3DMax right large mesh. DRAINS: 10-Tajik round CARMEN drain. COMPLICATIONS: None. DISPOSITION: Stable, transferred to Recovery Room. INDICATIONS: This is a 45-year-old male who presented to the Emergency Room with a septic picture. Workup revealed a large right inguinoscrotal hernia with concerns of possible obstruction and possible bowel compromise as the hernia was able to be reduced and the patient had a benign abdomen, we followed him until his sepsis was brought under control and his acute renal failure was managed. The patient ultimately recovered. There was no evidence of any bowel ischemia; however, the patient did have this chronic hernia that was felt to be in need of repair. 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 Procedure, risks, benefits were explained to the patient. Risks include but were not limited to infection, bleeding, pain, injury to surrounding structures, possible need for further procedures in the future, possible recurrence in the future. The patient understood and consented. OPERATIVE NOTE: The patient was brought to the operating room and placed on the table in supine position. After adequate general anesthesia was established, the patient was prepped and draped in usual sterile fashion. The patient already had a José catheter in place. Antibiotics were given. SCDs were in place. Time-out was called. I began by placing a Veress needle in left upper quadrant. I was able to insufflate without difficulty. Thereafter, a 5 mm port was placed in the midline superior to the umbilicus. We entered the peritoneal cavity safely. There was no injury to the underlying structures. There was no injury underneath the Veress needle. Veress needle was removed. Under direct vision, three 8 mm ports were placed across the abdomen and the 5 mm port was changed to a 12. The patient was flexed and placed in Trendelenburg position. Ray-Fidelina was inserted into the abdomen. Robot was docked. I then proceeded to the console. I began by creating a preperitoneal flap. The hernia sac itself was densely adherent to the surrounding structures posteriorly and medially. Large amount of time was required to complete this dissection. We ultimately ended up getting most of the sac out, but the distal aspect was too densely scarred to warrant further dissection was felt to be better simply just to divide the sac at this point. We clearly knew there were no contents within the sac and we had gotten most of the sac out. Therefore, I cautiously divided the sac repeatedly checking to make sure there were no cord structures nearby as we approached the posterior aspect of the sac. Then, we were able to identify very clearly the cord structures. They were away. I divided the rest of the sac. We then dissected the sac back off the cord structures and the surrounding tissue, so that we would have a wide area to lay the mesh and once this was done, mesh was inserted. I secured it to the pubic tubercle laterally and superiorly with 2-0 Vicryl sutures. The mesh laid very nicely. We placed a 10-Tajik drain into the abdomen, the distal aspect I passed underneath the mesh into the inguinal canal, so that we could minimize any seroma formation postoperatively as he had such a large hernia. The proximal end was left in the abdomen for now. I then proceeded to close the peritoneal flap with a 3-0 V-Loc suture. Once this was done, I then closed the large defect in the peritoneum from where we divided the sac. This was closed with a 3-0 V-Loc suture as well they came together very nicely. We had so much redundancy that there was no difficulty in closing this. Once all this was done, we then placed a grasper through the right-sided port, grabbed the proximal end of the drain and brought it out. We then undocked the robot converted to a laparoscopic case. I removed all the needles. All counts were correct. We removed the Ray-Fidelina. We then closed the 12 mm port site with a Madi-Que fascial closure device using a 2-0 PDS suture. We had a nice tight closure. Rest of the ports were removed. The drain was connected to bulb suction and we squeezed out the air from the scrotum. Additional local was injected into the incisions. Skin was cleaned and dried. Skin was closed with 4-0 Monocryl subcuticular stitches. Dermabond was placed. The patient tolerated the procedure well. There were no complications. All counts were correct at the end of the case. JOB# [id number] [facility]
[2020-06-17] MEDS: POTASSIUM CHLORIDE 10 MEQ 10 MEQ/100 ML BAG IV SCH ×2 (15:13→16:06)
[2020-06-17] MEDS ORDERED: POTASSIUM CHLORIDE ER 20 MEQ TAB PO ONE ×2 (15:14→17:07)
[2020-06-17] MEDS ORDERED: MINERAL OIL/PETROLATUM, WHITE OPHTH OINT 3.5 GM OD PRN (15:20)
--- NOTE | 2020-06-17 15:45 | Post Anesthesia Evaluation ---
- Post Anesthesia Evaluation Patient Participated: Yes Airway Patent: Yes Stable Respiratory Function: Yes Nausea/Vomiting: No Temp > 96.8F: Yes Pain Manageable: Yes Adequeate Hydration: Yes Anesthesia Complications: Yes (see below) Other Comments: In PACU, patient complained of itching and foreign body sensation in right eye. Right eye examined and no foreign body or other abnormality noted. Suspect corneal abraision. Lacri-lube ordered. Findings and suspicion explained to patient and reassurance provided. Verballized understanding.
[2020-06-17 19:32] VITALS: BP 102/66
[2020-06-17] MEDS: cefTRIAXone/NS 1 GM/50 ML 1 GM/50 ML BAG IV SCH (19:36)
--- NOTE | 2020-06-18 15:29 | Event Note ---
Date: 06/18/20 (Phone Follow-Up) Noted in nursing notes that patient has been discharged from hospital. Attempted to call patient to follow up on presumed corneal abrasion after anesthetic on 06/17/2020. Called multiple times on number listed in EMR [phone] but no answer and mailbox is full. No other contact numbers listed. Will attempt to call back at a later date.
== END 2020-06-17 19:34 | disposition home or self-care (01) | DRG 853 ==
LOC: ED 19:17 → IMCU 06-11 01:16 → CC1 06-11 19:21 → 4A 06-12 15:09
PROVIDERS: ADMIT Internal Medicine Geriatric Medicine; ATTEND Internal Medicine
PROC: 4A033R1 Measurement of Arterial Saturation, Peripheral, Percutaneous Approach (ICD-10-PCS; principal; 2020-06-14)
PROC: 0YU54JZ Supplement Right Inguinal Region with Synthetic Substitute, Percutaneous Endoscopic Approach (ICD-10-PCS; 2020-06-17)
PROC: 8E0W4CZ Robotic Assisted Procedure of Trunk Region, Percutaneous Endoscopic Approach (ICD-10-PCS; 2020-06-17)
DX: A41.9 Sepsis, unspecified organism (principal); G92 Toxic encephalopathy; N17.0 Acute kidney failure with tubular necrosis; K40.30 Unilateral inguinal hernia, with obstruction, without gangrene, not specified as recurrent; E87.2 Acidosis; N39.0 Urinary tract infection, site not specified; E86.0 Dehydration; E87.6 Hypokalemia; D64.9 Anemia, unspecified; Z20.828 Contact with and (suspected) exposure to other viral communicable diseases; F17.200 Nicotine dependence, unspecified, uncomplicated; E83.51 Hypocalcemia; E83.42 Hypomagnesemia; Z79.899 Other long term (current) drug therapy
CPT/HCPCS: 36415; 36600; 71045; 74176; 80048; 80076; 80307; 80320; 81001; 82140; 82150; 82330; 82728; 82803; 83550; 83690; 83735; 85007; 85025; 85027; 85610; 86850; 86900; 86901; 87040; 87086; 99406; G0378; C1781; G0480; J0330; J0696; J1100; J1170; J2250; J2270; J2370; J2405; J2543; J2704; J2710; J3010; J3480; J7030; J7050; J7120; U0003-CS